=== PATIENT | male | born 1945 | race Caucasian/White ===

== ENCOUNTER 2023-12-02 16:53 | Inpatient (IN) | payer MEDICARE, OTHER, SELFPAY ==
[2023-12-02] VITALS (7 sets, daily range): BP systolic 117–137; BP diastolic 63–90; BMI 32.4
--- NOTE | 2023-12-02 14:55 | ED.GENMED ---
History of Present Illness
General
Chief Complaint: Breathing Problem
Source: patient and spouse
Time Seen by Provider: 12/02/23 14:42
Travel History
Have you had any contact with someone who has COVID-19?: No
Do you have any symptoms of coronavirus? Fever > 100 degrees, chills, cough, shortness of breath, sore throat, loss of taste or smell, muscle aches, or headache?: No
History of Present Illness
History of Present Illness:
78-year-old male presents to the emergency room complaining of shortness of breath. Patient was sent to the emergency room from [facility] where he is rehabilitating from bypass surgery. He also had a new pacemaker and pacemaker lead placed during
recent hospitalization. Patient states he was told he has 'viral pneumonia'. Unclear how this diagnosis was arrived at. Patient denies any fever. He feels quite short of breath even at rest. .Patient also experiencing lower extremity edema
Past History
Past History
ED Past Medical History: Arrthythmia (Afibrillation- has a pacemaker and on xarelto.), HTN, Hypercholesterolemia and Other (gout)
Social History
Tobacco: Former smoker
Alcohol: Occasional
Personal:
Living: with family
Phy Exam
Physical Exam
Physical Exam:
General: Awake, Alert, Oriented X3. Patient peers pale, chronically ill
Vitals: Hypoxic on room air, afebrile
Head: Atraumatic
Eyes: Pupils equal, EOMI, pale conjunctiva
Throat: Airway intact, no exudates
Neck: Trachea midline
Lungs: Crackles throughout bilaterally, decreased breath sounds left lower lung field
Heart: Regular rate, no murmurs
Abd: Soft, Nontender, No pulsatile mass
Neuro: Nonfocal
Skin: Warm, dry, no rash
Extremities: pulses equal b/l, 2+ edema
Scores
Heart Failure Risk
Heart Failure Risk Score: Not Applicable
Course
Orders/Labs/Results
Orders:
Orders
12/02/23 14:53
Electrocardiogram (*1) Stat
Reason for Study: Other
Other Reason for Exam: chest pain
Cardiac Monitoring- Treatment ONCE
EKG- Treatment ONCE
CR Chest - 2 Views Urgent
Comment:
Reason For Exam: sob, cough
12/02/23 14:57
COVID-19 Antigen Urgent
Source: Nasal Swab
Complete Blood Count/With Diff Urgent
Comprehensive Metabolic Panel Urgent
Free T3 Urgent
Comment: ADD ON
Free T4 Urgent
Comment: ADD ON
Magnesium Urgent
NT-proBNP Urgent
Influenza A+B Rapid Molecular Urgent
DAT Source: Nasal Swab
Specimen Description:
12/02/23 Dinner
Sodium, 4 Gram (ELSY)
At Your Request: Limited Participation
12/02/23 15:04
Add On- LAB Urgent
Tests Added?: Free T4 & T3
12/02/23 15:38
Cefepime HCl [Maxipime] 2,000 mg IV NOW STA
12/02/23 15:56
Blood Culture Q30M
DAT Source: Blood/Venous
Specimen Description:
Blood Culture Q30M
DAT Source: Blood/Venous
Specimen Description:
12/02/23 16:14
Admit/Transfer Patient As Directed
Co-Sign Provider:
Level of Care: Inpatient admission
Assign to:: Medical/Surgical
Physician / Group: Carol
Diagnosis: Pneumonia
Reason for Hospitalization: Shortness of breath and pneumonia
Expected length of stay greater than two midnights?: Yes
ELOS- Estimated Length of Stay in days: 3
I certify the patient meets the requirements for IP care: Yes
12/02/23 16:16
Code Status As Directed
Resuscitation Status: Full Code
12/02/23 16:34
Ot Eval And Treat Routine
Pt Eval And Treat Routine
Activity Level: Out of Bed-Early Mobility
12/02/23 19:56
0.9% Sodium Chloride 1000 ml [Nss] 1,000 ml IV 75 mls/hr
Acetaminophen [Tylenol] 650 mg PO Q6HPRN PRN
Dulcolax (bisacodyl) 2 gummy PO Q48H
Ipratropium/Albuterol Sulfate [Duoneb] 3 ml INH R Q4HPRN PRN
Rivaroxaban [Xarelto] 20 mg PO QPM
VANCOMYCIN Pharmacy to Dose [VANCOCIN Pharmacy to Dose] 1 each Pharmacy To Prepare [Call Pharmacy To Prepare] 0 ml IV PER PROTOCOL
12/02/23 19:56
Urinalysis Reflex To Culture Routine
Respiratory Culture/Gram Stain Routine
DAT Source: Sputum
Specimen Description:
Activity As Directed
Activity Level: Out of Bed-Early Mobility
Intake/ Output As Directed
Frequency: Per unit guidelines
Pneumatic Compression Sleeves As Directed
Type: Knee high
Precautions As Directed
Type of Precautions: Aspiration
Comment: Fall precaution
Vital Signs As Directed
Frequency: Per unit guidelines
Weight As Directed
Frequency: Once
Comment: on admission
Speech Therapy Eval & Treat Routine
DX Deep Vein Thrombosis Video Routine
12/02/23 20:00
Guaifenesin [Mucinex] 600 mg PO Q12
Polyethylene Glycol Powder [Miralax] 17 grams PO Q48H
12/02/23 22:00
testosterone 100 mg TRANSDERM HS
12/03/23 00:00
Cefepime HCl [Maxipime] 1,000 mg IV Q8H
12/03/23 06:00
Basic Metabolic Panel IN AM
Complete Blood Count/With Diff IN AM
12/03/23 07:00
Levothyroxine [Synthroid] 150 mcg PO DAILY@0700
12/03/23 08:00
Allopurinol [Zyloprim] 300 mg PO DAILY
Amiodarone [Pacerone] 200 mg PO DAILY
Aspirin Chewable [Low Strength Aspirin] 81 mg PO DAILY
Atorvastatin [Lipitor] 40 mg PO DAILY
Metoprolol Xl [Toprol Xl] 12.5 mg PO DAILY
Abnormal Lab Results
12/02/23
14:57
WBC 13.7 H 10^3/uL
(4.8-10.8)
RBC 3.24 L 10^6/uL
(4.70-6.10)
Hgb 9.9 L g/dL
(13.0-18.0)
Hct 29.9 L %
(39.0-52.0)
RDW 15.5 H %
(11.5-14.5)
Abs Immat Gran (auto) 0.1 H 10^3/uL
(0-0.05)
Absolute Neuts (auto) 12.1 H 10^3/uL
(1.4-6.5)
Absolute Lymphs (auto) 0.5 L 10^3/uL
(1.2-3.4)
Absolute Monos (auto) 0.8 H 10^3/uL
(0.1-0.6)
Neutrophils % 88.7 H %
(42.2-75.2)
Lymphocytes % 3.7 L %
(20.5-51.1)
Sodium 128 L mmol/L
(135-145)
Glucose 137 H mg/dl
(70-99)
Calcium 7.9 L mg/dl
(8.4-10.2)
Total Bilirubin 1.6 H mg/dl
(0.2-1.3)
Alkaline Phosphatase 142 H U/L
(38-126)
Total Protein 6.0 L g/dl
(6.3-8.2)
Albumin 3.0 L g/dl
(3.5-5.0)
Free T4 2.23 H ng/dl
(0.78-2.19)
Free T3 1.52 L pg/ml
(2.77-5.27)
12/02/23 14:57
12/02/23 14:57
Vital Signs
Initial and Last Documented VS:
Initial Vital Signs
Temp Pulse Resp BP Pulse Ox
97.5 F 79 27 127/89 96
12/02/23 14:24 12/02/23 14:24 12/02/23 14:24 12/02/23 14:24 12/02/23 14:24
Last Documented Vital Signs
Temp Pulse Resp BP Pulse Ox
97.5 F 88 24 134/77 96
12/02/23 14:24 12/02/23 19:45 12/02/23 19:45 12/02/23 19:00 12/02/23 19:45
MDM/Problems Addressed
Differential Diagnosis Includes:
Pneumonia, symptomatic anemia, heart failure, COVID, influenza
MDM/Problems Addressed:
Patient has been afebrile here. Chest x-ray does confirm the presence of multilobar pneumonia. Suspect he may be anemic but his hemoglobin is acceptable at 9.9. Given his recent hospitalization and his current residence at a assisted living/rehab
facility patient will be treated with cefepime. Patient is requiring supplemental oxygen due to hypoxia. He is currently on 4 L which is maintaining a acceptable oxygen saturation. Patient will be hospitalized for continued supportive care.
Chronic conditions affecting care: HTN and CAD
*Radiology
Radiology exam reviewed: preliminary read by ED provider (I personally viewed the patient's chest x-ray. He has significant right upper and lower lung infiltrates)
*Pulse Oximetry
Patient hypoxic: yes (87 percent on room air)
*EKG
Interpreted by ED Provider?: Yes
Interpretation: abnormal
Heart Rate: 78
Rate: normal
Rhythm: a-fib
[place]: normal axis
QRS Pattern: wide non-specific
Ischemia: non-specific ST changes
*Insulation Nozzleman Interpretation
Rate: normal
Interpretation: abnormal
Rhythm: a-fib
*Critical Care Note
Total Time (30-74mins, 75-104mins- exclusive of procedures): Not Applicable
Data Reviewed
Review of Other/Old Records Reveals: Discharge Summary (From November 20, 2023)
Patient Management
Social determinants of health affecting care: Living situation
ED Attending Note
-
Portions of this chart may have been created with voice recognition software.� Occasional wrong word or��sound alike� substitutions may have occurred due to the inherent limitations of voice recognition software.
Discharge Plan
Departure
Patient Disposition: Admit
Date of Disposition: 12/02/23
Time of Disposition: 15:43
Admit to: Med/Surg
Presentation/result/management discussed w/ accepting MD/DO: Hospitalist
Condition: Fair
Discharge Problem:
Pneumonia
Interventions
Interventions:
*Risk Screen - Suicide Last Done: 12/02/23 14:24
*General Assessment Last Done: 12/02/23 14:24
*Neglect/Abuse Screening Last Done: 12/02/23 14:24
ED- Fall Risk Assessment Last Done: 12/02/23 14:32
*ED COVID-19 Vaccine History Last Done: 12/02/23 14:24
*Nursing Disposition Last Done: 12/02/23 20:05
ED- Cardiac Assessment Last Done: 12/02/23 14:32
ED- Pulmonary Assessment Last Done: 12/02/23 14:32
Discharge Date and Time
Discharge Date/Time: 12/02/23 20:05
[2023-12-02 15:09] LABS: % Basophils 0.4 % (0-2); % Eosinophils 0.6 % (0-6); % Immature Granulocytes 0.5 % (0-0.5); % Lymphocytes 3.7 % (20.5-51.1); % Monocytes 6.1 % (1.7-9.3); % Neutrophils 88.7 % (42.2-75.2); Absolute Basophils 0.1 10^3/uL (0-0.2); Absolute Eosinophils 0.1 10^3/uL (0-0.7); Absolute Immature Granulocytes 0.1 10^3/uL (0-0.05); Absolute Lymphocytes 0.5 10^3/uL (1.2-3.4); Absolute Monocytes 0.8 10^3/uL (0.1-0.6); Absolute Neutrophils 12.1 10^3/uL (1.4-6.5); Hematocrit 29.9 % (39.0-52.0); Hemoglobin 9.9 g/dL (13.0-18.0); Mean Corp Hgb Conc. 33.1 g/dL (33.0-37.0); Mean Corpuscular Hgb 30.6 pg (27.0-31.0); Mean Corpuscular Volume 92.3 fL (80.0-94.0); Mean Platelet Volume 8.8 fL (7.4-10.4); Nucleated Red Blood Cells % 0 % (-); Platelet Count 347 10^3/uL (130-400); Red Blood Cell Count 3.24 10^6/uL (4.70-6.10); Red Cell Dist. Width 15.5 % (11.5-14.5); White Blood Cell Count 13.7 10^3/uL (4.8-10.8)
[2023-12-02 15:28] LABS: COVID-19 Antigen Negative (Negative)
[2023-12-02 15:31] LABS: NT-proBNP 5020 pg/ml
[2023-12-02 15:49] LABS: ALT (SGPT) 44 U/L (0-50); AST (SGOT) 57 U/L (17-59); Alkaline Phosphatase 142 U/L (38-126); Blood Urea Nitrogen 17 mg/dl (9-20); Calcium 7.9 mg/dl (8.4-10.2); Carbon Dioxide 23 mmol/L (22-30); Chloride 99 mmol/L (98-107); Estimated Creatinine Clearance 69 ml/min; Glucose 137 mg/dl (70-99); Magnesium 2.3 mg/dl (1.6-2.3); Potassium 4.5 mmol/L (3.5-5.1); Sodium 128 mmol/L (135-145); Total Bilirubin 1.6 mg/dl (0.2-1.3); eGFR > 60.00
[2023-12-02] MEDS: MAXIPIME 2000 MG IV (15:56)
[2023-12-02 16:05] LABS: Free T3 1.52 pg/ml (2.77-5.27); Free T4 2.23 ng/dl (0.78-2.19)
--- NOTE | 2023-12-02 16:36 | HPS.HSE ---
Addendum entered and electronically signed by Stiven Medina MD 12/02/23 17:07:
Patient had a TSH checked yesterday as an outpatient and was less than 0.02 while his T4 today is 2.23 was mildly elevated and T3 is 1.52. These changes I will decrease his levothyroxine from 1 75-1 50 and need to check the thyroid panel over the
next week or 2.
Original Note:
Family Physician
-
Family Physician: Matthew Iverson
Chief Complaint
-
Cough and congestion and shortness of breath
History of Present Illness
78-year-old male who was discharged from the hospital recently to [facility] rehab after had a NSTEMI and pacemaker placed in couple weeks ago, since has been the basically he has been feeling tired and lousy and lethargic, and he not feel much
progression from a physical point of view. Over the last 4 days he continued to be more weak and lousy and lethargic cough productive cough of greenish phlegm associated with subjective chills but no fever documented, admitted any kind of movement
or activity making him more short of breath. Denies any urinary or GI symptom, no nausea or vomiting.
Admits overall having a poor appetite and feeling fatigue and low energy.
Chest x-ray showed right-sided pneumonia. Also has leukocytosis.
In the ER given broad-spectrum antibiotic.
Denies any choking or coughing on his meal
Able to provide detailed information and at the bedside.
They do not have to go back to the rehab after discharge .
Medical History
Past Medical History
Past Medical History: Reports Other
Additional Past Medical History:
Past medical history and archive reviewed:
Coronary artery disease and NSTEMI
Sick sinus syndrome status post pacemaker placement couple weeks ago
Hypertension
Chronic lower extremity edema while he is on a low-dose amlodipine
Hypertension
Hypothyroidism
Hypothyroidism
Sick sinus syndrome status post pacemaker placement
TIA
Dilatory dysfunction
T3 tumor
Fatty liver
A-fib anticoagulated with Eliquis
Family history of colon cancer
Surgical history:
Cardiac cath
Pacemaker placement
T3 tumor removal
Cholecystectomy
Social history: Lives at home usually with a but since discharge less than 2 weeks ago from area is not primary but he does not go to the [facility], no smoking while drinks alcohol occasionally.
Family history: Positive for colon cancer, hypertension and stroke.
Past Surgical History: Reports Other
Social History
Drug: Other
Family History
Family History: Other
Allergies / Home Medications
Allergies reflects when Allergies were last updated in [facility].
Home Medications with original date entered in [facility]
Allergy/Medication List:
Allergies
Allergy/AdvReac Type Severity Reaction Status Date / Time
No Known Allergies Allergy Verified 02/07/17 07:19
Home Medications
amlodipine 2.5 mg tablet 2.5 mg PO DAILY Blood Pressure 02/07/17
levothyroxine 175 mcg tablet 175 mcg PO DAILY Thyroid 02/07/17
rivaroxaban 20 mg tablet (Xarelto) 20 mg PO QPM Blood Clot Prevention/Tx 02/07/17
allopurinol 300 mg tablet 300 mg PO DAILY Gout 11/09/23
metoprolol succinate 25 mg tablet,extended release 24 hr 12.5 mg PO DAILY Blood Pressure 11/09/23
testosterone 50 mg/5 gram (1 %) transdermal gel 100 mg transdermal DAILY apply to lower belly/B/L shoulders 11/09/23
aspirin 81 mg chewable tablet (Children's Aspirin) 81 mg PO DAILY Blood clot prevention/tx #0 tabs 11/21/23
atorvastatin 40 mg tablet 40 mg PO DAILY High cholesterol #90 tabs 11/21/23
acetaminophen 325 mg tablet 650 mg PO Q4HPRN PRN fever>100 12/02/23
acetaminophen 325 mg tablet (Tylenol) 650 mg PO Q6H PRN mild pain 12/02/23
amiodarone 200 mg tablet 200 mg PO BID Arrhythmia 12/02/23
bisacodyl 10 mg rectal suppository (Dulcolax (bisacodyl)) 10 mg OK DAILY PRN constipation 12/02/23
furosemide 40 mg tablet 40 mg PO DAILY 12/02/23
ipratropium 0.5 mg-albuterol 3 mg (2.5 mg base)/3 mL nebulization soln 3 ml inhalation R Q8 12/02/23
ipratropium 0.5 mg-albuterol 3 mg (2.5 mg base)/3 mL nebulization soln 3 ml inhalation R Q8HPRN PRN wheezing 12/02/23
magnesium hydroxide 1,200 mg chewable tablet 1,200 mg PO Q48H 12/02/23
melatonin 5 mg tablet 5 mg PO HS 12/02/23
polyethylene glycol 3350 17 gram oral powder packet (Miralax) 17 g PO DAILY 12/02/23
sennosides 8.6 mg-docusate sodium 50 mg tablet (Senna Plus) 1 tab-cap PO DAILY 12/02/23
sodium phosphates 19 gram-7 gram/118 mL enema (Fleet Enema) 118 ml OK DAILYPRN PRN constipation 12/02/23
Review of Systems
-
A 12 point ROS was completed and negative except as noted: Yes
Physical Exam
Vital Signs
Vital Signs
Temp Pulse Resp BP Pulse Ox
97.5 F 78 27 117/90 97
12/02/23 14:24 12/02/23 16:00 12/02/23 16:00 12/02/23 16:00 12/02/23 16:00
physical exam:
General: Overweight, lethargic but , alert and oriented x3, not in distress and holds appropriate conversation.
HEENT: No active discharge, ecchymosis or bruising, dry lips, tongue and mucous membrane.
Eyes: No discharge or red conjunctiva, no nystagmus, pupils are reactive and equal
Neck:Supple, no JVD no bruit no goiter.
Respiratory: Normal AP contour and diameter, normal chest wall movement, normal respiratory effort, no respiratory distress,
Lungs: Good air entry bilaterally, no wheezing or rhonchi, scattered rales but crackles
Heart: S1, S2 regular, normal rate, no added sound. Mild lower extremity edema, scar in the left upper chest
Gastrointestinal: Positive bowel sounds, soft, nontender, no guarding or rigidity or organomegaly
Musculoskeletal: , no chest wall abnormality or tenderness. All joints and extremities have good range of motion, no muscle tenderness or any joint swelling or tenderness.
Extremities: No pitting edema, good peripheral pulses, good range of motion
Skin: Warm and dry, no ulceration, normal color.
Neurological: alert and oriented x3, cranial nerve II-XII grossly intact, speech clear and comprehensive, good muscle tone, moves extremities freely
Psychiatric: Normal mood, normal thought and judgment, normal affect,
Physical Exam
General: Other
Laboratory Results
-
12/02/23 14:57
12/02/23 14:57
Laboratory Results
Total Bilirubin 1.6 mg/dl (0.2-1.3) H 12/02/23 14:57
AST 57 U/L (17-59) 12/02/23 14:57
ALT 44 U/L (0-50) 12/02/23 14:57
Alkaline Phosphatase 142 U/L (38-126) H 12/02/23 14:57
chest x-ray:
Significant change in the appearance of the lungs, with new right upper and lower lung zone pneumonia and parapneumonic effusion.
Minimal left base atelectasis or scarring.
Data Reviewed
-
Diagnostic Radiology: Image Personally Visualized and interpreted, Discussed with Patient and Discussed with Family
Lab Data: Labs Reviewed by me, Discussed with Patient and Discussed with Family
Old Records: Reviewed
Impression/Plan
-
IMPRESSION:
78-year-old male who was [facility]STEMI and pacemaker placed, presented back to the hospital with a workup showing a right-sided pneumonia.
Healthcare acquired pneumonia with recent hospitalization and been in a halfway home
Chronic hyponatremia, usually runs below 130 today is 128
Hypocalcemia, well corrected calcium is dick be more than 8.5 albumin is 3
Moderate protein caloric malnutrition
History of the hypopituitarism and hypothyroidism while T4 is little high and T3 is low.
Coronary artery disease
Sick sinus syndrome status post pacemaker
A-fib
Chronic lower extremity edema, mild while he is on amlodipine
Hypertension.
Dilatory dysfunction
PLAN:
Managed with broad-spectrum antibiotic, vancomycin and cefepime
Cough medication
Tylenol as needed
Sputum culture
Monitor vital sign
Recheck lab
I will hold amlodipine as he takes 2.5 mg while the pulmonary Lasix for lower extremity edema.
Hold Lasix for now looks dry
Low-dose IV fluid with monitor for fluid status
Continue amiodarone, Lopressor and Xarelto
Continue levothyroxine while T4 and T3 checked, T4 is mildly elevated and T3 is mildly low possible sick euthyroid. Will check TSH to complete the workup and may adjust accordingly.
PT OT and assess functional status
Clearly they voiced that he does not want to go back to the prior 1 after discharge.
All discussed with the patient and the
CODE STATUS full code
DVT prophylaxis is Xarelto
--- NOTE | 2023-12-02 21:06 | PHA.VAN.IN ---
Assessment
- Assessment
Renal Function: Appears similar to baseline
Maximum Temperature: 97.5
Minimum Temperature: 97.5
Concomitant Antimicrobials: Cefepime
AUC Dosing Plan
- Dosing Variables
Dosing Weight (kg): 105.2
Dosing CrCl (ml/min): 69
Vd coefficient (L/kg): 0.6
- Empiric Dosing
Initial / Loading Dose: 2000mg
Maintenance Regimen: 1000mg Q12H
Estimated AUC (mcg*h/mL): 530
Estimated Peak (mcg*h/mL): 30.3
Estimated Trough (mcg/ml): 15.4
Estimated Half Life (H): 11.2
- Monitoring
No levels ordered at this time: Consider levels in next few days
MRSA Screen: Ordered per protocol
Pharmacokinetics Vancomycin I
- -
Patient Age: 78
Patient Sex: Male
Vancomycin Day #: 1
Indication: Pulmonary/Respiratory
Requesting Provider: DR. Stiven Crowder
Pertinent Antimicrobial Allergies:
NKDA
Height / Weight:
Height 5 ft 11 in
Actual Weight 105.2 kg
Pertinent Past Medical History: CAD
- Vital Signs / Lab Results
Temp Pulse Resp BP Pulse Ox
97.5 F 88 24 134/77 96
12/02/23 14:24 12/02/23 19:45 12/02/23 19:45 12/02/23 19:00 12/02/23 19:45
Lab Results - Hematology
12/02/23
14:57
WBC 13.7 H
Lab Results - Chemistry
12/02/23
14:57
BUN 17
Creatinine 1.1
Estimated Creat Clear 69
Albumin 3.0 L
Microbiology Results
12/02/23 14:57 Influenza Types A & B (CLEO) - Final
Nasal Swab Negative for Influenza A & B, NAAT
Negative results must be combined with clinical observations
and patient history.
Nucleic Acid Amplification test (NAAT)performed on the
[employer] platform.
[2023-12-02] MEDS: NSS 1000 IV (22:46)
[2023-12-02] MEDS: VANCOCIN 540 MG IV (22:47)
[2023-12-02] MEDS: MIRALAX 17 GRAMS PO (22:47)
[2023-12-02] MEDS: XARELTO 20 MG PO (22:47)
[2023-12-02] MEDS: MUCINEX 600 MG PO (22:47)
[2023-12-02 23:15] LABS: Urine Albumin Trace (Neg - Trace); Urine Bilirubin Negative (Negative); Urine Character Clear (Clear); Urine Color Yellow; Urine Glucose Negative (Negative); Urine Ketone Negative (Negative); Urine Leukocyte Negative (Negative); Urine Nitrite Negative (Negative); Urine Occult Blood Negative (Negative); Urine Urobilinogen Negative (Neg - 1+)
--- NOTE | 2023-12-03 01:23 | VATNOTE ---
VAT paged to move patient's PIV as pump continued to alarm. Patient found with 18 gauge R median cubital PIV placed via US by ED with infiltrate of vanco. Patient reports pain, area cool and firm to touch. PIV removed and restarted in left upper
arm. Right arm elevated and cool compress applied by primary RN. Will continue to follow.
[2023-12-03] MEDS: DUONEB 3 ML INH ×3 (01:28→17:23)
[2023-12-03] MEDS: MAXIPIME 1000 MG IV ×2 (02:50→08:15)
[2023-12-03] MEDS: STERILE WATER FOR INJECTION 10 ML IV ×2 (02:50→08:16)
[2023-12-03 03:30] VITALS: BP 138/80
[2023-12-03 05:24] VITALS: BMI 31.9
[2023-12-03] MEDS: SYNTHROID 150 MCG PO (05:38)
[2023-12-03 07:20] VITALS: BP 133/80
--- NOTE | 2023-12-03 07:54 | VATNOTE ---
Right arm vanco infiltrate in antecubital baslic region remains swollen , patient states he has a 'little ' pain on palpation, warm compress applied, will continue to monitor.
[2023-12-03] MEDS: LIPITOR 40 MG PO (08:15)
[2023-12-03] MEDS: ZYLOPRIM 300 MG PO (08:15)
[2023-12-03] MEDS: MUCINEX 600 MG PO ×2 (08:15→21:54)
[2023-12-03] MEDS: LOW STRENGTH ASPIRIN 81 MG PO (08:15)
[2023-12-03] MEDS: TOPROL XL 12.5 MG PO (08:15)
[2023-12-03] MEDS: PACERONE 200 MG PO ×2 (08:15→21:54)
[2023-12-03 09:35] LABS: % Basophils 0.5 % (0-2); % Eosinophils 0.7 % (0-6); % Immature Granulocytes 0.7 % (0-0.5); % Lymphocytes 3.9 % (20.5-51.1); % Monocytes 5.3 % (1.7-9.3); % Neutrophils 88.9 % (42.2-75.2); Absolute Basophils 0.1 10^3/uL (0-0.2); Absolute Eosinophils 0.1 10^3/uL (0-0.7); Absolute Immature Granulocytes 0.1 10^3/uL (0-0.05); Absolute Lymphocytes 0.5 10^3/uL (1.2-3.4); Absolute Monocytes 0.7 10^3/uL (0.1-0.6); Absolute Neutrophils 11.6 10^3/uL (1.4-6.5); Hematocrit 28.7 % (39.0-52.0); Hemoglobin 9.3 g/dL (13.0-18.0); Mean Corp Hgb Conc. 32.4 g/dL (33.0-37.0); Mean Corpuscular Hgb 29.4 pg (27.0-31.0); Mean Corpuscular Volume 90.8 fL (80.0-94.0); Mean Platelet Volume 8.8 fL (7.4-10.4); Nucleated Red Blood Cells % 0 % (-); Platelet Count 331 10^3/uL (130-400); Red Blood Cell Count 3.16 10^6/uL (4.70-6.10); Red Cell Dist. Width 15.5 % (11.5-14.5)
[2023-12-03 10:24] LABS: Blood Urea Nitrogen 17 mg/dl (9-20); Calcium 7.7 mg/dl (8.4-10.2); Carbon Dioxide 22 mmol/L (22-30); Chloride 101 mmol/L (98-107); Estimated Creatinine Clearance 69 ml/min; Glucose 125 mg/dl (70-99); Potassium 4.2 mmol/L (3.5-5.1); Sodium 129 mmol/L (135-145); eGFR > 60.00
--- NOTE | 2023-12-03 10:25 | PTOTSP ---
SPEECH THERAPY SWALLOW EVALUATION:
Clinical signs of pharygneal dysphagia, while oral swallow phase appeared to be WFL; likely [id number]-chronic related to recent CABG x4 with intubation/extubation, and self-reported change in vocal quality since surgery; suspect possible damage
to Recurrent Laryngeal Nerve could be contributing to swallow dysfunction. Patient at high risk for aspiration and related complications given tenuous respiratory status. Recommend instrumental assessment of swallow to further assess swallow
physiology prior to initiating oral diet. Recommend Videofluoroscopic Swallowing Study; recommend patient to be NPO except for small, single sips of water and ice chips via ARHP until VSE; temporary alternate means for all other nutrition.
Medications whole with liquid. Aspiration precautions including: upright positioning, small single sips, aggressive oral care QID. Recommend Speech therapy to follow, provide further recommendations following results of VSE, and provide continued
education regarding aspiration risks and precautions.
RECOMMEND:
1) Videofluoroscopic Swallowing Study
2) NPO except for small, single sips of water and ice chips via ARHP until VSE
3) temporary alternate means for all other nutrition
4) Medications whole with liquid
5) Aspiration precautions including: upright positioning, small single sips, aggressive oral care QID
6) Speech therapy to follow, provide further recommendations following results of VSE, and provide continued education regarding aspiration risks and precautions
[2023-12-03 10:29] LABS: Procalcitonin 0.21 ng/ml (0.0-0.25)
[2023-12-03] MEDS: LASIX 40 MG PO (10:34)
[2023-12-03] MEDS: VANCOCIN 200 IV (10:34)
[2023-12-03 11:16] VITALS: BP 146/82
--- NOTE | 2023-12-03 12:08 | W.PN.HOSP.TC ---
Today's Communication/Plan
-
Monitor vital signs and see plan
Lasix
DuoNebs
Wean oxygen as tolerated
PT/OT
VSE tomorrow
N.p.o. for now, okay for meds
Assessment / Plan
Assessment / Plan
General: Overweight, lethargic but , alert and oriented x3
HEENT: Anicteric, pink conjunctiva
Respiratory: CTA, mild wheezing
Heart: S1, S2 regular, normal rate, no added sound.� Mild lower extremity edema, scar in the left upper chest
Gastrointestinal: Positive bowel sounds, soft, nontender, no guarding or rigidity or organomegaly
Musculoskeletal: , no chest wall abnormality or tenderness.� All joints and extremities have good range of motion, no muscle tenderness or any joint swelling or tenderness.
Neurological:� alert and oriented x3, cranial nerve II-XII grossly intact, speech clear and comprehensive, good muscle tone, moves extremities freely
Psychiatric: Normal mood, normal thought and judgment, normal affect
Healthcare acquired pneumonia with recent hospitalization and [facility]
Acute hypoxic respiratory insufficiency
Acute on Chronic hyponatremia
Moderate protein caloric malnutrition
History of the hypopituitarism and hypothyroidism while T4 is little high and T3 is low.
Coronary artery disease s/p recent CABG
Sick sinus syndrome status post pacemaker
A-fib/A flutter, paroxysmal
Chronic lower extremity edema, mild while he is on amlodipine
Hypertension.
Dilatory dysfunction
CHFpEF
PLAN:
Managed with broad-spectrum antibiotic, vancomycin and cefepime for now; probnp doesnt appear significant, i dont see any fever here. If afebrile and leukocytosis improved then consider discontinuing antibiotics. Seen by speech today manage
scheduled for VSE tomorrow. N.p.o. for now.
Cough medication
Tylenol as needed
Sputum� culture
Monitor vital sign
xray with possible pneumonia and parapneumonic effusion
COVID, flu, Legionella, strep neg
hold amlodipine
restart lasix; IV lasix given; probnp elevated. per echo on last admission, stage 2 diastolic dysfunction. 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
Continue amiodarone, Lopressor and Xarelto
Levothyroxine decreased to 150. Patient to get repeat TSH with free T4 in 4 to 6 weeks outpatient
PT OT and assess functional status
CODE STATUS full code
DVT prophylaxis is Xarelto
I spent a total of 54 minutes with the patient or on the floor. More than 50% of this time involved counseling and coordination of care.
Anticipated Discharge: > 48 hours
Subjective/Interval History
-
Date of Service: December 03, 2023
has some sob
Objective Data
-
Labs:
Laboratory Results
12/03/23
09:22
WBC 13.0 H
Hgb 9.3 L
Hct 28.7 L
Plt Count 331
Sodium 129 L
Potassium 4.2
Chloride 101
Carbon Dioxide 22
BUN 17
Creatinine 1.1
Glucose 125 H
Calcium 7.7 L
Vital Signs:
Vital Signs
Temp Pulse Resp BP Pulse Ox
97.7 F 81 18 146/82 95
12/03/23 11:16 12/03/23 11:16 12/03/23 11:16 12/03/23 11:16 12/03/23 11:16
I&O
12/02/23 12/03/23 12/04/23
06:59 06:59 06:59
Intake Total 720 / 720
Output Total 325 / 325
Balance 395 / 395
[2023-12-03] MEDS: LASIX 40 MG IV (12:27)
--- NOTE | 2023-12-03 12:50 | VATNOTE ---
Left midline bleeding, redressed with quick clot and berenice wrap to control bleeding, will continue to monitor.
--- NOTE | 2023-12-03 12:59 | W.PN.CD ---
Today's Communication / Plan
-
Impression / Plan
-
Impression: 78M with recent NSTEMI -> CABG (11/16) & right sided PPM. He initially felt better, but developed dyspnea and fatigue over last 5-7 days.
PMH: paroxysmal atrial flutter, SSS / AV block s/p PPM, HTN/HLD
Plan
Dyspnea
- unsure if there is HF. Weight stable and the 1+ edema is chronic. CXR is only right sided. pBNP is elevated
- continue Lasix today and reevaluate AM since he reports good diuresis
- treat PNA
CAD s/p recent CABG
Aflutter, paroxysmal
-Back in AF now.
-Rate control with amiodarone and metoprolol.
-CHADS2-Vasc = 4 (HTN, Age x2, Vascular Disease). Xarelto
Sick sinus syndrome / AV block
-left sided PPM is changed to back up as VVI 40 bpm. Occluded venous system on the left shoulder with attempted venoplasty with only limited success.
-New right sided conduction system pacemaker implanted on 11/20/23.
HTN: Stable/controlled on current medication regimen.
Mixed hyperlipidemia - statin
Prior pituitary surgery
Legally blind
Subjective: Dictated
DATA:
Intraoperative KEVIN, 11/16/2023:
Overall LVEF is approximately 60% with no RWMA.
Moderate mitral regurgitation.
Mild tricuspid regurgitation.
Cardiac Catheterization, 11/10/2023:
Left Main: Normal
LAD: Tandem 50% ostial and 40% proximal LAD stenoses.� There is 30% mid LAD stenosis.� The major diagonal branch has 60% proximal to mid stenosis.
Circumflex: 90% ostial circumflex stenosis.� There is 40% mid circumflex stenosis.� OM1 is very large with 70% mid stenosis.� OM 2 is a small to medium sized bifurcating vessel with 60% ostial stenosis.
RCA: 50% mid RCA stenosis.� The RCA has otherwise mild diffuse disease.� The acute marginal branch supplies the distal PDA territory.� There is no clearly visible PDA and the posterolateral branches are small.
.
Physical Exam
Vital Signs/Labs
Vital Signs
Temp Pulse Resp BP Pulse Ox
36.5 C 81 18 146/82 95
12/03/23 11:16 12/03/23 11:16 12/03/23 11:16 12/03/23 11:16 12/03/23 11:16
12/02/23 12/03/23 12/04/23
06:59 06:59 06:59
Actual Weight 228 lb 5 oz
12/03/23 09:22
12/03/23 09:22
Magnesium 2.3 mg/dl (1.6-2.3) 12/02/23 14:57
Free T4 Cancelled 12/02/23 14:58
12/02/23
14:57
Ljg-A-Kyzvtbxvrfv Pept 5020
Data Reviewed
-
Date of Service: December 03, 2023
[2023-12-03 13:21] LABS: NT-proBNP 4010 pg/ml
[2023-12-03] MEDS: NSS IV (14:36)
[2023-12-03 15:15] VITALS: BP 134/67
[2023-12-03] MEDS: ZOSYN 50 IV ×2 (16:50→21:54)
[2023-12-03] MEDS: XARELTO 20 MG PO (17:43)
--- NOTE | 2023-12-03 18:17 | PTCARENOTE ---
IVT had redressed midline earlier today, applied quick clot and LYNETTE wrap due to bleeding at site. Midline noted to be bleeding from site again significantly more than before. IVT instructed RN to remove midline. Pressure was applied for 15 minutes
due to continued bleeding. ABD pad and LYNETTE wrap applied when bleeding stopped.
[2023-12-03 19:15] VITALS: BP 126/64
--- NOTE | 2023-12-03 19:37 | VATNOTE ---
Late entry: Rec'd. call from embossing unit operator that pt.'s IV site was bleeding alot and could they pull it. The pt.'s access was miss identified and pt. had a Midline. Therefore primary RN removed the Midline. Andrzej wrap was appplied. Pt. has peripheral
access.
[2023-12-03 23:37] VITALS: BP 113/62
[2023-12-03] MEDS: TYLENOL 650 MG PO (23:45)
[2023-12-04] VITALS (7 sets, daily range): BP systolic 103–137; BP diastolic 63–75; PULSE 85; O2SAT 93; BMI 31.9
[2023-12-04] MEDS: BENADRYL 6.25 MG IV (02:11)
[2023-12-04] MEDS: DUONEB 3 ML INH ×3 (03:23→14:54)
[2023-12-04] MEDS: MORPHINE SULFATE 1 MG IV (03:53)
[2023-12-04] MEDS: ZOSYN 50 IV ×4 (03:54→21:10)
[2023-12-04] MEDS: SYNTHROID 150 MCG PO (05:23)
--- NOTE | 2023-12-04 08:34 | W.PN.CD ---
Today's Communication / Plan
-
- cont w diuresis
recheck echo
rate control for afib
Eval and Rx extensive R sided Pna per Hospitalist
Impression / Plan
-
Impression: 78M with recent NSTEMI -> CABG (11/16) & right sided PPM. He initially felt better, but developed dyspnea and fatigue over last 5-7 days.
PMH: paroxysmal atrial flutter, SSS / AV block s/p PPM, HTN/HLD
Plan
Dyspnea
-major cause is R Pna (aspiration vs SNF aquired)
-also looks volume overloaded, although weight is now back to baseline
- continue Lasix today and reevaluate daily since he reports good diuresis
- treat PNA (he is on piperacillin)
CAD s/p recent CABG
recheck echo today
recurrent afib - see below
Aflutter, paroxysmal
-Back in AF now.
-Rate control with amiodarone and metoprolol.
-CHADS2-Vasc = 4 (HTN, Age x2, Vascular Disease). Xarelto
-no short term plan to DCCV; but eventually will -plan for DCCV
Sick sinus syndrome / AV block
-R sided PPM set to VVI 40 bpm. Occluded venous system on the left shoulder with attempted venoplasty with only limited success.
-New right sided conduction system pacemaker implanted on 11/20/23.
HTN: Stable/controlled on current medication regimen.
Mixed hyperlipidemia - statin
Prior pituitary surgery
Legally blind
Subjective: Dictated
DATA:
Intraoperative KEVIN, 11/16/2023:
Overall LVEF is approximately 60% with no RWMA.
Moderate mitral regurgitation.
Mild tricuspid regurgitation.
Cardiac Catheterization, 11/10/2023:
Left Main: Normal
LAD: Tandem 50% ostial and 40% proximal LAD stenoses.� There is 30% mid LAD stenosis.� The major diagonal branch has 60% proximal to mid stenosis.
Circumflex: 90% ostial circumflex stenosis.� There is 40% mid circumflex stenosis.� OM1 is very large with 70% mid stenosis.� OM 2 is a small to medium sized bifurcating vessel with 60% ostial stenosis.
RCA: 50% mid RCA stenosis.� The RCA has otherwise mild diffuse disease.� The acute marginal branch supplies the distal PDA territory.� There is no clearly visible PDA and the posterolateral branches are small.
.
Physical Exam
Vital Signs/Labs
Vital Signs
Temp Pulse Resp BP Pulse Ox
97.4 F 77 18 137/73 99
12/04/23 03:01 12/04/23 08:01 12/04/23 08:01 12/04/23 03:01 12/04/23 08:01
12/03/23 12/04/23 12/05/23
06:59 06:59 06:59
Actual Weight 228 lb 5 oz 228 lb 7 oz
Magnesium 2.3 mg/dl (1.6-2.3) 12/02/23 14:57
Free T4 Cancelled 12/02/23 14:58
12/02/23 12/03/23
14:57 09:22
Xsr-J-Zwciotrwbeb Pept 5020 4010
Physical Exam
Cardiovascular: Systolic murmur absent, Rhythm/rate is irregular and Pedal edema present
Respiratory: Labored respirations, Wheeze Present and Crackles Present
GI: Soft
Neuro/Psych: Alert
Data Reviewed
-
Date of Service: December 04, 2023
EKG: Tracing Personally Visualized and interpreted
X-Ray/CT/US/MRI/NUC/PET: Image Personally Visualized and interpreted
Labs: Labs Reviewed by me
[2023-12-04] MEDS: LIPITOR 40 MG PO (08:49)
[2023-12-04] MEDS: MUCINEX 600 MG PO ×2 (08:49→20:02)
[2023-12-04] MEDS: TOPROL XL 12.5 MG PO (08:50)
[2023-12-04] MEDS: PACERONE 200 MG PO ×2 (08:50→20:02)
[2023-12-04] MEDS: ZYLOPRIM 300 MG PO (08:50)
[2023-12-04] MEDS: LASIX 40 MG PO (08:50)
[2023-12-04] MEDS: LOW STRENGTH ASPIRIN 81 MG PO (08:50)
--- NOTE | 2023-12-04 10:33 | W.PN.HOSP.TC ---
Today's Communication/Plan
-
see plan
Assessment / Plan
Assessment / Plan
Healthcare acquired pneumonia with recent hospitalization and been in a halfway home
Acute hypoxic respiratory insufficiency
Acute on Chronic hyponatremia
Moderate protein caloric malnutrition
History of the hypopituitarism and hypothyroidism while T4 is little high and T3 is low.
Coronary artery disease s/p recent CABG
Sick sinus syndrome status post pacemaker
A-fib/A flutter, paroxysmal
Chronic lower extremity edema, mild while he is on amlodipine
Hypertension.
Dilatory dysfunction
CHFpEF
PLAN:
Managed with broad-spectrum antibiotic,
Vanc/cefepime -> transitioned to zosyn
probnp doesnt appear significant, i dont see any fever here. Seen by speech today manage scheduled for VSE tomorrow. N.p.o. for now.
Cough medication
Tylenol as needed
Sputum� culture
Monitor vital sign
xray with possible pneumonia and parapneumonic effusion - repeat XR 12/05 to assess if effusions have improved after diuresis.
COVID, flu, Legionella, strep neg
hold amlodipine
completed IV lasix, transition to oral lasix. Cards following. probnp elevated. per echo on last admission, stage 2 diastolic dysfunction. 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
Continue amiodarone, Lopressor and Xarelto
Levothyroxine decreased to 150. Patient to get repeat TSH with free T4 in 4 to 6 weeks outpatient
PT OT and assess functional status
CODE STATUS full code
DVT prophylaxis is Xarelto
Anticipated Discharge: 24 - 48 hours
Subjective/Interval History
-
Date of Service: December 04, 2023
pt continues to improve on zosyn, lasix
denies fever or chills.
Objective Data
-
Labs:
Laboratory Results
12/04/23
06:00
WBC Pending
Hgb Pending
Hct Pending
Plt Count Pending
Sodium Pending
Potassium Pending
Chloride Pending
Carbon Dioxide Pending
BUN Pending
Creatinine Pending
Glucose Pending
Calcium Pending
Vital Signs:
Vital Signs
Temp Pulse Resp BP Pulse Ox
97.7 F 76 18 123/75 99
12/04/23 07:25 12/04/23 08:50 12/04/23 08:01 12/04/23 08:50 12/04/23 08:01
I&O
12/03/23 12/04/23 12/05/23
06:59 06:59 06:59
Intake Total 720 / 720 1400 / 1880 480 / 480
Output Total 325 / 325 1350 / 1950 600 / 600
Balance 395 / 395 50 / -70 -120 / -120
Review of Systems
-
History Source: Patient
All other systems: Reviewed and negative
Physical Exam
-
General: Well Developed and No Apparent Distress
HEENT: Normocephalic, Atraumatic, Moist Mucous Membranes and Oxygen
Respiratory: Decreased Breath Sounds
Cardiac: Regular Rhythm and S1/S2; Negative Murmur, Rub or Gallop
GI: Soft, Nontender, Nondistended and Normal Bowel Sounds; Negative Organomegaly
Rectal: Deferred by Provider
Musculoskeletal: No Clubbing, No Cyanosis and No Edema
Skin: Negative Rash
Neuro: Nonfocal/Grossly Intact
Data Reviewed
-
Labs: Labs Reviewed by me
[2023-12-04 11:04] LABS: % Basophils 0.6 % (0-2); % Eosinophils 1.5 % (0-6); % Immature Granulocytes 0.7 % (0-0.5); % Lymphocytes 4.7 % (20.5-51.1); % Monocytes 6.2 % (1.7-9.3); % Neutrophils 86.3 % (42.2-75.2); Absolute Basophils 0.1 10^3/uL (0-0.2); Absolute Eosinophils 0.2 10^3/uL (0-0.7); Absolute Immature Granulocytes 0.1 10^3/uL (0-0.05); Absolute Lymphocytes 0.5 10^3/uL (1.2-3.4); Absolute Monocytes 0.7 10^3/uL (0.1-0.6); Absolute Neutrophils 9.5 10^3/uL (1.4-6.5); Hematocrit 27.9 % (39.0-52.0); Hemoglobin 9.3 g/dL (13.0-18.0); Mean Corp Hgb Conc. 33.3 g/dL (33.0-37.0); Mean Corpuscular Hgb 29.6 pg (27.0-31.0); Mean Corpuscular Volume 88.9 fL (80.0-94.0); Mean Platelet Volume 8.9 fL (7.4-10.4); Nucleated Red Blood Cells % 0 % (-); Platelet Count 307 10^3/uL (130-400); Red Blood Cell Count 3.14 10^6/uL (4.70-6.10); Red Cell Dist. Width 15.6 % (11.5-14.5)
[2023-12-04 11:16] LABS: Blood Urea Nitrogen 20 mg/dl (9-20); Calcium 7.7 mg/dl (8.4-10.2); Carbon Dioxide 24 mmol/L (22-30); Chloride 100 mmol/L (98-107); Estimated Creatinine Clearance 69 ml/min; Glucose 118 mg/dl (70-99); Potassium 3.8 mmol/L (3.5-5.1); Sodium 130 mmol/L (135-145); eGFR > 60.00
--- NOTE | 2023-12-04 14:33 | PTOTSP ---
Video Swallow Examination
Patient presents with mild oral and mild-moderate pharyngeal dysphagia. There was aspiration with thin liquids via tsp with a weak ineffective cough response.
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
Recommend:
1. IDDSI Level 6 (Soft and Bite Sized), IDDSI Level 2 (Mildly Thick Liquids)
2. Medications - crushed in puree if medically cleared to do so
3. Strategies: alternate solids and liquids to assist with pharyngeal clearance, remain upright for 30 minutes after PO intake as a reflux precautions
4. Aspiration Risk Hydration Protocol - ice chips after oral care
5. Oral care 3-5x daily
6. ENT consult
7. Continued dysphagia tx at the acute care level for education in compensations and rehabilitation.
--- NOTE | 2023-12-04 16:53 | CM ---
LM with Honey.Unable to do IA.
[2023-12-04] MEDS: XARELTO 20 MG PO (17:15)
[2023-12-04] MEDS: MIRALAX 17 GRAMS PO (20:02)
[2023-12-05] VITALS (8 sets, daily range): BP systolic 80–131; BP diastolic 54–71; PULSE 71–92; O2SAT 98
[2023-12-05] MEDS: BENADRYL 6.25 MG IV (00:02)
[2023-12-05] MEDS: ZOSYN 50 IV ×4 (04:57→21:35)
[2023-12-05] MEDS: SYNTHROID 150 MCG PO (04:57)
[2023-12-05 07:15] LABS: % Basophils 0.6 % (0-2); % Immature Granulocytes 0.4 % (0-0.5); % Lymphocytes 5.8 % (20.5-51.1); % Neutrophils 84.2 % (42.2-75.2); Absolute Basophils 0.1 10^3/uL (0-0.2); Absolute Eosinophils 0.3 10^3/uL (0-0.7); Absolute Lymphocytes 0.6 10^3/uL (1.2-3.4); Absolute Monocytes 0.6 10^3/uL (0.1-0.6); Absolute Neutrophils 8.5 10^3/uL (1.4-6.5); Hematocrit 27.8 % (39.0-52.0); Mean Corp Hgb Conc. 32.4 g/dL (33.0-37.0); Mean Corpuscular Hgb 29.6 pg (27.0-31.0); Mean Corpuscular Volume 91.4 fL (80.0-94.0); Mean Platelet Volume 8.9 fL (7.4-10.4); Nucleated Red Blood Cells % 0 % (-); Platelet Count 299 10^3/uL (130-400); Red Blood Cell Count 3.04 10^6/uL (4.70-6.10); Red Cell Dist. Width 15.6 % (11.5-14.5); White Blood Cell Count 10.1 10^3/uL (4.8-10.8)
--- NOTE | 2023-12-05 07:45 | VATNOTE ---
Repoerted right arm vanco infiltrate resolved.
[2023-12-05 07:46] LABS: ALT (SGPT) 70 U/L (0-50); AST (SGOT) 132 U/L (17-59); Albumin 2.5 g/dl (3.5-5.0); Alkaline Phosphatase 189 U/L (38-126); Blood Urea Nitrogen 22 mg/dl (9-20); Calcium 7.7 mg/dl (8.4-10.2); Carbon Dioxide 28 mmol/L (22-30); Chloride 101 mmol/L (98-107); Estimated Creatinine Clearance 63 ml/min; Glucose 120 mg/dl (70-99); Potassium 3.7 mmol/L (3.5-5.1); Sodium 133 mmol/L (135-145); Total Bilirubin 1.5 mg/dl (0.2-1.3); Total Protein 5.4 g/dl (6.3-8.2); eGFR > 60.00
[2023-12-05] MEDS: TOPROL XL 12.5 MG PO (08:29)
[2023-12-05] MEDS: LOW STRENGTH ASPIRIN 81 MG PO (08:29)
[2023-12-05] MEDS: MUCINEX 600 MG PO ×2 (08:29→20:16)
[2023-12-05] MEDS: PACERONE 200 MG PO ×2 (08:30→20:16)
[2023-12-05] MEDS: ZYLOPRIM 300 MG PO (08:30)
[2023-12-05] MEDS: LIPITOR 40 MG PO (08:35)
[2023-12-05] MEDS: LASIX PO (08:35)
--- NOTE | 2023-12-05 09:06 | W.PN.CD ---
Today's Communication / Plan
-
lightheadeness and sob standing 12/05/23 . Sounded orhtostatic but nursing reported stable . Hold diuretic and monitor orthostatics
continue txof PNA
Impression / Plan
-
Impression: 78M with recent NSTEMI -> CABG (11/16) & right sided PPM. He initially felt better, but developed dyspnea and fatigue over last 5-7 days.
PMH: paroxysmal atrial flutter, SSS / AV block s/p PPM, HTN/HLD
Plan
Dyspnea
-major cause is R Pna (aspiration vs SNF aquired)
-also treated for suspected HF. Weight down 2 KG
- lightheadeness and sob standing 12/05/23 . Sounded orhtostatic but nursing reported stable . Hold diuretic and monitro orthostatics
CAD s/p recent CABG
recheck echo today
recurrent afib - see below
Aflutter, paroxysmal
-Back in AF
-Rate control with amiodarone and metoprolol.
-CHADS2-Vasc = 4 (HTN, Age x2, Vascular Disease). Xarelto
-no short term plan to DCCV; but eventually will -plan for DCCV
Sick sinus syndrome / AV block
-R sided PPM set to VVI 40 bpm. Occluded venous system on the left shoulder with attempted venoplasty with only limited success.
-New right sided conduction system pacemaker implanted on 11/20/23.
HTN: Stable/controlled on current medication regimen.
Mixed hyperlipidemia -elevated LFT - hold statin statin
Prior pituitary surgery
Legally blind
Subjective: lightheadeness and sob standing 12/05/23 . Sounded orhtostatic but nursing reported stable .
DATA:
Intraoperative KEVIN, 11/16/2023:
Overall LVEF is approximately 60% with no RWMA.
Moderate mitral regurgitation.
Mild tricuspid regurgitation.
Cardiac Catheterization, 11/10/2023:
Left Main: Normal
LAD: Tandem 50% ostial and 40% proximal LAD stenoses.� There is 30% mid LAD stenosis.� The major diagonal branch has 60% proximal to mid stenosis.
Circumflex: 90% ostial circumflex stenosis.� There is 40% mid circumflex stenosis.� OM1 is very large with 70% mid stenosis.� OM 2 is a small to medium sized bifurcating vessel with 60% ostial stenosis.
RCA: 50% mid RCA stenosis.� The RCA has otherwise mild diffuse disease.� The acute marginal branch supplies the distal PDA territory.� There is no clearly visible PDA and the posterolateral branches are small.
.
Physical Exam
Vital Signs/Labs
Vital Signs
Temp Pulse Resp BP Pulse Ox
97.7 F 74 20 122/66 97
12/05/23 07:00 12/05/23 08:29 12/05/23 07:00 12/05/23 08:29 12/05/23 07:00
12/04/23 12/05/23 12/06/23
06:59 06:59 06:59
Actual Weight 103.618 kg
12/05/23 07:04
12/05/23 07:04
Magnesium 2.3 mg/dl (1.6-2.3) 12/02/23 14:57
Free T4 Cancelled 12/02/23 14:58
12/02/23 12/03/23
14:57 09:22
Qdx-Y-Hrnpyoxrflv Pept 5020 4010
Physical Exam
Constitutional: No acute distress
Cardiovascular: Rhythm & rate is regular
Respiratory: Respiratory effort normal
GI: Soft
Neuro/Psych: Alert
Data Reviewed
-
Date of Service: December 05, 2023
Medical Decision Making: Reviewed Test Results
Labs: Labs Reviewed by me
--- NOTE | 2023-12-05 10:40 | W.PN.HOSP.TC ---
Addendum entered and electronically signed by Elin Blankenship MD 12/05/23 13:02:
d/w pt
discussed INSULATION ENGINEMAN recommendation with Dr. Dukes of ENT on 12/04, recommended outpt follow up after discharge.
Original Note:
Today's Communication/Plan
-
continue antibiotics.
Assessment / Plan
Assessment / Plan
Healthcare acquired pneumonia with recent hospitalization and been in a detention home
Acute hypoxic respiratory insufficiency
Acute on Chronic hyponatremia
Moderate protein caloric malnutrition
History of the hypopituitarism and hypothyroidism while T4 is little high and T3 is low.
Coronary artery disease s/p recent CABG
Sick sinus syndrome status post pacemaker
A-fib/A flutter, paroxysmal
Chronic lower extremity edema, mild while he is on amlodipine
Hypertension.
Dilatory dysfunction
CHFpEF
PLAN:
Managed with broad-spectrum antibiotic,
Vanc/cefepime -> transitioned to zosyn. vancomycin discontinued due to negative MRSA swab.
probnp doesnt appear significant, i dont see any fever here. completed VSE and placed on dysphagia program diet.
Cough medication
Tylenol as needed
Sputum� culture
Monitor vital sign
xray with possible pneumonia and parapneumonic effusion - repeat XR 12/05 pending to assess if effusions have improved after diuresis.
COVID, flu, Legionella, strep neg
hold amlodipine
completed IV lasix, transition to oral lasix. Cards following. probnp elevated. per echo on last admission, stage 2 diastolic dysfunction. 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
Continue amiodarone, Lopressor and Xarelto
Levothyroxine decreased to 150. Patient to get repeat TSH with free T4 in 4 to 6 weeks outpatient
PT OT and assess functional status
CODE STATUS full code
DVT prophylaxis is Xarelto
Anticipated Discharge: > 48 hours
Subjective/Interval History
-
Date of Service: December 05, 2023
pt continues to improve day by day
less sob, remains on o2
Objective Data
-
Labs:
Laboratory Results
12/05/23
07:04
WBC 10.1
Hgb 9.0 L
Hct 27.8 L
Plt Count 299
Sodium 133 L
Potassium 3.7
Chloride 101
Carbon Dioxide 28
BUN 22 H
Creatinine 1.2
Glucose 120 H
Calcium 7.7 L
Total Bilirubin 1.5 H
AST 132 H
ALT 70 H
Alkaline Phosphatase 189 H
Vital Signs:
Vital Signs
Temp Pulse Resp BP Pulse Ox
97.7 F 74 20 122/66 97
12/05/23 07:00 12/05/23 08:29 12/05/23 07:00 12/05/23 08:29 12/05/23 07:00
I&O
12/04/23 12/05/23 12/06/23
06:59 06:59 06:59
Intake Total 1400 / 1880 1270 / 1270
Output Total 1350 / 1950 1450 / 1450
Balance 50 / -70 -180 / -180
Review of Systems
-
History Source: Patient
All other systems: Reviewed and negative
Physical Exam
-
General: Well Developed and No Apparent Distress
HEENT: Normocephalic, Atraumatic, Moist Mucous Membranes and Oxygen
Respiratory: Clear to Auscultation
Cardiac: Regular Rhythm and S1/S2; Negative Murmur, Rub or Gallop
GI: Soft, Nontender, Nondistended and Normal Bowel Sounds; Negative Organomegaly
Rectal: Deferred by Provider
Musculoskeletal: No Clubbing, No Cyanosis and No Edema
Skin: Negative Rash
Neuro: Nonfocal/Grossly Intact
Data Reviewed
-
Labs: Labs Reviewed by me
--- NOTE | 2023-12-05 16:27 | CM ---
Patient seen bedside with , Honey, initial assessment completed. Patient reports he was at [facility] and will not be returning. Patient and would prefer patient return home with VN services, or if CM can research [facility] in [place]. Patient reports he resides in a multiple story home with 11 steps up the stairs with a circular staircase. Patient denies VN or DME. Patient reports [facility] was the first experience at a SNF. Patient confirms PCP Dr. Iverson, pharmacy
[facility]. CM will continue to follow for discharge planning needs.
Plan; home with VN vs SNF.
[2023-12-05] MEDS: XARELTO 20 MG PO (16:54)
[2023-12-06] VITALS (28 sets, daily range): BP systolic 96–159; BP diastolic 63–118; PULSE 2–95
[2023-12-06] MEDS: SYNTHROID 150 MCG PO (04:47)
[2023-12-06] MEDS: ZOSYN 50 IV ×3 (04:47→15:56)
[2023-12-06 06:07] LABS: % Basophils 0.9 % (0-2); % Eosinophils 1.8 % (0-6); % Immature Granulocytes 0.7 % (0-0.5); % Lymphocytes 5.3 % (20.5-51.1); % Monocytes 5.7 % (1.7-9.3); % Neutrophils 85.6 % (42.2-75.2); Absolute Basophils 0.1 10^3/uL (0-0.2); Absolute Eosinophils 0.2 10^3/uL (0-0.7); Absolute Immature Granulocytes 0.1 10^3/uL (0-0.05); Absolute Lymphocytes 0.6 10^3/uL (1.2-3.4); Absolute Monocytes 0.6 10^3/uL (0.1-0.6); Hematocrit 29.5 % (39.0-52.0); Hemoglobin 9.7 g/dL (13.0-18.0); Mean Corp Hgb Conc. 32.9 g/dL (33.0-37.0); Mean Corpuscular Volume 88.3 fL (80.0-94.0); Nucleated Red Blood Cells % 0 % (-); Platelet Count 345 10^3/uL (130-400); Red Blood Cell Count 3.34 10^6/uL (4.70-6.10); Red Cell Dist. Width 15.6 % (11.5-14.5); White Blood Cell Count 10.5 10^3/uL (4.8-10.8)
[2023-12-06 06:45] LABS: ALT (SGPT) 122 U/L (0-50); AST (SGOT) 229 U/L (17-59); Albumin 2.7 g/dl (3.5-5.0); Alkaline Phosphatase 247 U/L (38-126); Blood Urea Nitrogen 24 mg/dl (9-20); Calcium 7.9 mg/dl (8.4-10.2); Carbon Dioxide 24 mmol/L (22-30); Chloride 102 mmol/L (98-107); Estimated Creatinine Clearance 58 ml/min; Glucose 109 mg/dl (70-99); Potassium 3.4 mmol/L (3.5-5.1); Sodium 133 mmol/L (135-145); Total Bilirubin 1.8 mg/dl (0.2-1.3); Total Protein 5.8 g/dl (6.3-8.2); eGFR 56.58
[2023-12-06] MEDS: KCL 40 MEQ PO (09:58)
[2023-12-06] MEDS: MUCINEX 600 MG PO (09:59)
[2023-12-06] MEDS: ZYLOPRIM 300 MG PO (09:59)
[2023-12-06] MEDS: TOPROL XL 12.5 MG PO (09:59)
[2023-12-06] MEDS: PACERONE 200 MG PO (09:59)
[2023-12-06] MEDS: LOW STRENGTH ASPIRIN 81 MG PO (10:00)
[2023-12-06] MEDS: DUONEB 3 ML INH ×2 (10:08→13:59)
--- NOTE | 2023-12-06 11:03 | W.PN.CD ---
Today's Communication / Plan
-
Some limitations to taking standing orthostatics. Patient still having symptoms of weakness and shortness of breath. Chest x-ray with right-sided pneumonia. Reviewed with Dr. Melendrez.
-Will await CT of chest which is being ordered by the hospitalist
-Hold diuretic
-Monitor orthostatics
Impression / Plan
-
Impression: 78M with recent NSTEMI -> CABG (11/16) & right sided PPM. He initially felt better, but developed dyspnea and fatigue over last 5-7 days.
PMH: paroxysmal atrial flutter, SSS / AV block s/p PPM, HTN/HLD
Plan
Dyspnea
-major cause is R Pna (aspiration vs SNF aquired)
-also treated for suspected HF. Weight down 2 KG
- lightheadeness and sob standing 12/05/23 . Sounded orhtostatic but nursing reported stable . Hold diuretic and monitro orthostatics
CAD s/p recent CABG
recheck echo today
recurrent afib - see below
Aflutter, paroxysmal
-Back in AF
-Rate control with amiodarone and metoprolol.
-CHADS2-Vasc = 4 (HTN, Age x2, Vascular Disease). Xarelto
-no short term plan to DCCV; but eventually will -plan for DCCV
Sick sinus syndrome / AV block
-R sided PPM set to VVI 40 bpm. Occluded venous system on the left shoulder with attempted venoplasty with only limited success.
-New right sided conduction system pacemaker implanted on 11/20/23.
HTN: Stable/controlled on current medication regimen.
Mixed hyperlipidemia -elevated LFT - hold statin statin
Prior pituitary surgery
Legally blind
Subjective: lightheadeness and sob standing 12/05/23 . Sounded orhtostatic but nursing reported stable .
DATA:
Intraoperative KEVIN, 11/16/2023:
Overall LVEF is approximately 60% with no RWMA.
Moderate mitral regurgitation.
Mild tricuspid regurgitation.
Cardiac Catheterization, 11/10/2023:
Left Main: Normal
LAD: Tandem 50% ostial and 40% proximal LAD stenoses.� There is 30% mid LAD stenosis.� The major diagonal branch has 60% proximal to mid stenosis.
Circumflex: 90% ostial circumflex stenosis.� There is 40% mid circumflex stenosis.� OM1 is very large with 70% mid stenosis.� OM 2 is a small to medium sized bifurcating vessel with 60% ostial stenosis.
RCA: 50% mid RCA stenosis.� The RCA has otherwise mild diffuse disease.� The acute marginal branch supplies the distal PDA territory.� There is no clearly visible PDA and the posterolateral branches are small.
.
Physical Exam
Vital Signs/Labs
Vital Signs
Temp Pulse Resp BP Pulse Ox
97.4 F 122 22 136/65 89
12/06/23 07:00 12/06/23 10:14 12/06/23 10:14 12/06/23 09:59 12/06/23 10:14
12/06/23 05:19
12/06/23 05:19
Magnesium 2.3 mg/dl (1.6-2.3) 12/02/23 14:57
Free T4 Cancelled 12/02/23 14:58
12/02/23 12/03/23
14:57 09:22
Rvs-V-Qcikzryhfwc Pept 5020 4010
Physical Exam
EENT: Anicteric
Cardiovascular: Rhythm & rate is regular
Respiratory: Other (Crackles right base no wheeze)
GI: Soft, Non tender, Normal bowel sounds and Other (No mass no hepatosplenomegaly)
Neuro/Psych: Alert
Data Reviewed
-
Date of Service: December 06, 2023
Medical Decision Making: Review of Case with other Provider (Reviewed treatment plan with Dr. Melendrez. Also had discussion with nurse regarding symptoms during attempted orthostatic vitals.)
EKG: Report Reviewed by me
Medical Tests (PFT, Pathology etc): Report Reviewed by me
Labs: Labs Reviewed by me
--- NOTE | 2023-12-06 11:39 | W.PN.HOSP.TC ---
Addendum entered and electronically signed by Joel Melendrez MD 12/06/23 15:43:
Spouse updated over the phone
Addendum entered and electronically signed by Joel Melendrez MD 12/06/23 12:03:
Spoke with cardiology and will order CT chest to better assess his respiratory status.
Original Note:
Today's Communication/Plan
-
Monitor vital signs and see plan
Diuresis per cardiology
Apply teds
Continue with antibiotics
Wean oxygen as tolerated
Assessment / Plan
Assessment / Plan
Healthcare acquired pneumonia with recent hospitalization and been in a [place] [facility] home
Acute hypoxic respiratory insufficiency
Acute on Chronic hyponatremia
Moderate protein caloric malnutrition
History of the hypopituitarism and hypothyroidism while T4 is little high and T3 is low.
Coronary artery disease s/p recent CABG
Sick sinus syndrome status post pacemaker
A-fib/A flutter, paroxysmal
Chronic lower extremity edema, mild while he is on amlodipine
Hypertension.
Dilatory dysfunction
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
Orthostatic hypotension
Hypokalemia
PLAN:
Managed with broad-spectrum antibiotic,
Vanc/cefepime -> transitioned to zosyn. vancomycin discontinued due to negative MRSA swab.
probnp doesnt appear significant, i dont see any fever here. completed VSE and placed on dysphagia program diet.
Cough medication
Tylenol as needed
Sputum� culture
Monitor vital sign
xray with possible pneumonia and parapneumonic effusion -repeat x-ray with pneumonia. Consider CT chest if symptoms do not improve
COVID, flu, Legionella, strep neg
hold amlodipine
completed IV lasix, transition to oral lasix. Cards following. probnp elevated. per echo on last admission, stage 2 diastolic dysfunction. 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
Continue amiodarone, Lopressor and Xarelto
Replete potassium
apply TEDS
Levothyroxine decreased to 150. Patient to get repeat TSH with free T4 in 4 to 6 weeks outpatient
PT OT and assess functional status
CODE STATUS full code
DVT prophylaxis is Xarelto
General: Overweight, lethargic but , alert and oriented x3
HEENT: Anicteric, pink conjunctiva
Respiratory: CTA, mild wheezing
Heart: S1, S2 regular, normal rate, no added sound.� Mild lower extremity edema, scar in the left upper chest
Gastrointestinal: Positive bowel sounds, soft, nontender, no guarding or rigidity or organomegaly
Neurological:� alert and oriented x3
Psychiatric: Normal mood, normal thought and judgment, normal affect
Anticipated Discharge: > 48 hours
Subjective/Interval History
-
Date of Service: December 06, 2023
denies pain
Objective Data
-
Labs:
Laboratory Results
12/06/23
05:19
WBC 10.5
Hgb 9.7 L
Hct 29.5 L
Plt Count 345
Sodium 133 L
Potassium 3.4 L
Chloride 102
Carbon Dioxide 24
BUN 24 H
Creatinine 1.3
Glucose 109 H
Calcium 7.9 L
Total Bilirubin 1.8 H
AST 229 H
ALT 122 H
Alkaline Phosphatase 247 H
Vital Signs:
Vital Signs
Temp Pulse Resp BP Pulse Ox
97.4 F 122 22 136/65 89
12/06/23 07:00 12/06/23 10:14 12/06/23 10:14 12/06/23 09:59 12/06/23 10:14
I&O
12/05/23 12/06/23 12/07/23
06:59 06:59 06:59
Intake Total 1270 / 1270 1440 / 1440
Output Total 1450 / 1450 965 / 965
Balance -180 / -180 475 / 475
--- NOTE | 2023-12-06 11:57 | W.PN.CD ---
Today's Communication / Plan
-
Continue treatment of pneumonia.
Impression / Plan
-
Impression: 78M with recent NSTEMI -> CABG (11/16) & right sided PPM. He initially felt better, but developed dyspnea and fatigue over last 5-7 days.
PMH: paroxysmal atrial flutter, SSS / AV block s/p PPM, HTN/HLD
Plan
Dyspnea
-major cause is R Pna (aspiration vs SNF aquired)
-also treated for suspected HF. Weight down 2 KG
- lightheadeness and sob standing 12/05/23 . Sounded orhtostatic but nursing reported stable . Diuretic held on 12/05/2023. Follow-up chest x-ray still shows extensive right-sided pneumonia.
-Treatment of pneumonia directed by primary team.
CAD s/p recent CABG
recheck echo today
recurrent afib - see below
Aflutter, paroxysmal
-Back in AF
-Rate control with amiodarone and metoprolol.
-CHADS2-Vasc = 4 (HTN, Age x2, Vascular Disease). Xarelto
-no short term plan to DCCV; but eventually will -plan for DCCV
Sick sinus syndrome / AV block
-R sided PPM set to VVI 40 bpm. Occluded venous system on the left shoulder with attempted venoplasty with only limited success.
-New right sided conduction system pacemaker implanted on 11/20/23.
HTN: Stable/controlled on current medication regimen.
Mixed hyperlipidemia -elevated LFT - hold statin statin
Prior pituitary surgery
Legally blind
Subjective: lightheadeness and sob standing 12/05/23 . Today he was more weak and short of breath he had to sit down before they were able to check his blood pressure there was some systolic change in blood pressure 130-111 when he sat up
DATA:
Intraoperative KEVIN, 11/16/2023:
Overall LVEF is approximately 60% with no RWMA.
Moderate mitral regurgitation.
Mild tricuspid regurgitation.
Cardiac Catheterization, 11/10/2023:
Left Main: Normal
LAD: Tandem 50% ostial and 40% proximal LAD stenoses.� There is 30% mid LAD stenosis.� The major diagonal branch has 60% proximal to mid stenosis.
Circumflex: 90% ostial circumflex stenosis.� There is 40% mid circumflex stenosis.� OM1 is very large with 70% mid stenosis.� OM 2 is a small to medium sized bifurcating vessel with 60% ostial stenosis.
RCA: 50% mid RCA stenosis.� The RCA has otherwise mild diffuse disease.� The acute marginal branch supplies the distal PDA territory.� There is no clearly visible PDA and the posterolateral branches are small.
.
Physical Exam
Vital Signs/Labs
Vital Signs
Temp Pulse Resp BP Pulse Ox
97.9 F 101 22 118/64 92
12/06/23 11:00 12/06/23 11:00 12/06/23 11:00 12/06/23 11:00 12/06/23 11:00
12/06/23 05:19
12/06/23 05:19
Magnesium 2.3 mg/dl (1.6-2.3) 12/02/23 14:57
Free T4 Cancelled 12/02/23 14:58
12/02/23 12/03/23
14:57 09:22
[id number] Pept 5020 4010
Physical Exam
Constitutional: No acute distress
EENT: Anicteric
Cardiovascular: Rhythm & rate is regular
Respiratory: Respiratory effort normal and Wheeze Absent
GI: Soft, Non tender and Normal bowel sounds
Neuro/Psych: Alert and Oriented
Data Reviewed
-
Date of Service: December 06, 2023
Medical Decision Making: Reviewed Test Results
EKG: Report Reviewed by me
Medical Tests (PFT, Pathology etc): Report Reviewed by me
Labs: Labs Reviewed by me
--- NOTE | 2023-12-06 13:37 | CON.PUL ---
Consultation
Consultation Request
Date/Time Consultation Requested: 12-06-23
Date/Time Consultation Performed: 12-06-23
Requesting Provider: Hospitalist
Performing Provider: Dr Mayers
Reason for Consultation: dyspnea
Medical History
-
Chief Complaint: dyspnea
History of Present Illness:
Mr Madhav Morales is a 78/M adm 12-02 from [facility] where he was rehabilitating after sustaining MSTEMI for which he received CABG at on 11-16-23 (also received R sided PPM for AVB), with 4 d h/o productive cough of greenish sputum, chills and
dyspnea. At ER, R sided infiltrate, started on vancomycin/cefepime, then changed to zosyn since 12-03. Increasing O2 requirements led to pulm consultation 12-06
On NRM 15L O2 at time of visit, POx 99% but moderate WOB, denies precordial or pleuritic CP, n/v, HENSON
Nonsmoker, not on home O2 or BDs
Past Medical History
Past Medical History: Other (see A&P for PMH/PSH)
Social History
Tobacco: Non-smoker
Alcohol: None
Drug: None
Personal:
Living: With Family
Employment: Retired
Family History
Family History: Reviewed & Not Pertinent
Allergies / Home Medications
Allergies
Allergy/AdvReac Type Severity Reaction Status Date / Time
No Known Allergies Allergy Verified 02/07/17 07:19
Home Medications
Medication Instructions Recorded Confirmed Last Taken Type
amlodipine 2.5 mg tablet 2.5 mg PO DAILY Blood Pressure 02/07/17 12/02/23 12/02/23 History
levothyroxine 175 mcg tablet 175 mcg PO DAILY Thyroid 02/07/17 12/02/23 12/02/23 History
rivaroxaban 20 mg tablet (Xarelto) 20 mg PO QPM Blood Clot 02/07/17 12/02/23 12/01/23 History
Prevention/Tx
allopurinol 300 mg tablet 300 mg PO DAILY Gout 11/09/23 12/02/23 12/02/23 History
metoprolol succinate 25 mg 12.5 mg PO DAILY Blood Pressure 11/09/23 12/02/23 12/02/23 History
tablet,extended release 24 hr
testosterone 50 mg/5 gram (1 %) 100 mg transdermal DAILY apply to 11/09/23 12/02/23 12/01/23 History
transdermal gel lower belly/B/L shoulders
aspirin 81 mg chewable tablet 81 mg PO DAILY Blood clot 11/21/23 12/02/23 12/02/23 Rx
(Children's Aspirin) prevention/tx #0 tabs
atorvastatin 40 mg tablet 40 mg PO DAILY High cholesterol 11/21/23 12/02/23 12/02/23 Rx
#90 tabs
acetaminophen 325 mg tablet 650 mg PO Q4HPRN PRN fever>100 12/02/23 12/02/23 Unknown History
acetaminophen 325 mg tablet 650 mg PO Q6H PRN mild pain 12/02/23 12/02/23 11/30/23 History
(Tylenol)
amiodarone 200 mg tablet 200 mg PO BID Arrhythmia 12/02/23 12/02/23 12/02/23 History
bisacodyl 10 mg rectal suppository 10 mg MI DAILY PRN constipation 12/02/23 12/02/23 Unknown History
(Dulcolax (bisacodyl))
furosemide 40 mg tablet 40 mg PO DAILY Fluid 12/02/23 12/02/23 12/02/23 History
Retention/Swelling
ipratropium 0.5 mg-albuterol 3 mg 3 ml inhalation R Q8 12/02/23 12/02/23 12/02/23 History
(2.5 mg base)/3 mL nebulization Lung/Breathing Issues
soln
ipratropium 0.5 mg-albuterol 3 mg 3 ml inhalation R Q8HPRN PRN 12/02/23 12/02/23 Unknown History
(2.5 mg base)/3 mL nebulization wheezing
soln
magnesium hydroxide 1,200 mg 1,200 mg PO Q48H Supplement 12/02/23 12/02/23 12/01/23 History
chewable tablet
melatonin 5 mg tablet 5 mg PO HS Sleep 12/02/23 12/02/23 12/01/23 History
polyethylene glycol 3350 17 gram 17 g PO DAILY Constipation 12/02/23 12/02/23 12/02/23 History
oral powder packet (Miralax)
sennosides 8.6 mg-docusate sodium 1 tab-cap PO DAILY Constipation 12/02/23 12/02/23 12/02/23 History
50 mg tablet (Senna Plus)
sodium phosphates 19 gram-7 118 ml MI DAILYPRN PRN constipation 12/02/23 12/02/23 Unknown History
gram/118 mL enema (Fleet Enema)
Review of Systems
-
History Source: Patient
All other systems: Negative unless noted
Constitutional: Fatigue
Respiratory: Cough and Trouble Breathing
Neuro: Weakness
Vitals / Labs / Diagnostic Testing
Vital Signs
Temp Pulse Resp BP Pulse Ox
97.9 F 101 22 118/64 92
12/06/23 11:00 12/06/23 11:00 12/06/23 11:00 12/06/23 11:00 12/06/23 11:00
Lab Data
12/06/23 05:19
12/06/23 05:19
Microbiology
12/02/23 15:56 Blood/Venous Blood Culture - Preliminary
No Growth in 72 hours- Final report to follow
12/02/23 15:56 Blood/Venous Blood Culture - Preliminary
No Growth in 72 hours- Final report to follow
12/02/23 23:07 Nose Nasal Screen MRSA (PCR) - Final
MRSA not detected - performed by PCR methodology.
12/03/23 10:24 Urine Legionella Urinary Antigen - Final
Negative for Legionella pneumophila Serogroup 1 antigen.
A negative result does not rule out the possiblity of
Legionella infection due to other serogroups or species of
Legionella. Clinical correlation is recommended.
12/03/23 10:24 Urine Streptococcus pneumoniae Antigen (M - Final
Negative for Streptococcus pneumoniae antigen.
A negative result does not exclude infection with
Streptococcus pneumoniae. Clinical correlation is
recommended.
Diagnostic Testing:
Physical Exam
-
HEENT: Normocephalic and Moist Mucous Membranes
Cardiovascular: Regular Rhythm, Murmur (n), Peripheral Edema (CHERRY), Calf Tenderness and JVD (trace)
Respiratory: Wheeze, Rhonchi and Accessory Resp Muscle Use
GI: Soft, Non Distended and Non Tender
Neurology: Awake, Oriented and No Motor Deficits
Skin: Dry
General: Respiratory Distress
Assessment
-
Assessment:
Mr Madhav Morales is a 78/M adm 12-02 from [facility] where he was rehabilitating after sustaining MSTEMI for which he received CABG at on 11-16-23 (also received R sided PPM for AVB), with 4 d h/o productive cough of greenish sputum, chills and
dyspnea. At ER, R sided infiltrate, started on vancomycin/cefepime, then changed to zosyn since 12-03. Increasing O2 requirements led to pulm consultation 12-06
Impression:
Bilateral pneumonia/pneumonitis R>>L
Bilateral dependent pleural effusions and compressive L base atelectasis
Resolving leukocytosis
Persistent moderate anemia
Transaminitis
Elevated BNP
Normal PCT 12-03
Dysphagia: mild oral and mild-moderate pharyngeal
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
CAD s/p CABGx4 and PPM (AVB) early Nov 2023
PAFib on rivaroxaban, L sided PPM in past, on amiodarone
HTN
HLD
Gout
Hypothyroidism
Diastolic dysfunction
Moderate MR
Chronic hyponatremia
Pituitary tumor s/p resection
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
R sided blindness
TIA
Fatty liver
Cholecystectomy
Nonsmoker
Plan:
O2 protocol to continue
On NRM 15L O2 at time of visit, POx 99% at rest ^WOB
Keep asp precs
Blood cxs, MRSA screening, COVID/flu/Leg/Strep negative
No sputum cx available
On atbs since adm, currently on zosyn
Noted ^AST, ALT, AP, TB, could be secondary to zosyn and/or HF
Consider ID consult and updating TTE
Rec reinitiation of diuretic IV
Chest CT s/c 12-06, reviewed, pending official report, diffuse pneumonitis with scattered denser areas on R field and patchy pneumonitis areas at MANUEL, bilateral dependent moderate PF and compressive L base atelectasis
Suspect progressive changes by comparing to adm CXR
Rec initiation of empiric systemic CS and BPAP trial at 16/ with fiO2 to keep POx>=92%
Keep NPO x meds in meantime, change all possible meds to IV for now
Seen by Speech, VSE 12-04 showed mild O and mild-mod P dysphagia
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
Follow anemia, transfuse if Hgb <7
Rec upgrading to IMU
Full code status
Prognosis guarded
TT Dr Melendrez
Diagnostic tests:
CXR 12-05-23, c/w 20 and 11-21-23. Baseline with no infiltrates. Fillms this adm with new onset R sided infiltrate and mild pulm vasc congestion on L. Last adm with new L sided PPM (already had L sided PPM)
[2023-12-06] MEDS: MUCOMYST 10% 2 ML INH (13:58)
[2023-12-06] MEDS: COLACE 100 MG PO (15:56)
[2023-12-06] MEDS: MIRALAX 17 GRAMS PO (15:56)
--- NOTE | 2023-12-06 16:09 | CON.ID ---
Consultation
-
Date/Time Consultation Requested: December 06, 2023 1600
Date/Time Consultation Performed: December 06, 2023 1610
Requesting Provider: Dr. Joel Melendrez
Performing Provider: Dr. Aislinn Ibrahim
Reason for Consultation: PNA
Chief Complaint / Past History
Chief Complaint
Cough and shortness of breath
History of Present Illness
78-year-old male with history of hypertension, atrial fibrillation, chronic lower extremity edema, who was recently hospitalized from November 09 to November 21 when he presented with NSTEMI status post rCABG x 4 on November 16, 2023 and new pacemaker
placement November 20, 2023. He was discharged to [facility] rehab. However he was readmitted on December 02 for approximately 1 week history of worsening shortness of breath with activity and cough. He was very weak. No fever no chills. White count
was elevated 13.7. Chest x-ray showed new right upper lobe and lower lobe pneumonia with parapneumonic effusion. Procalcitonin was 0.21. BNP 5020. He was placed on vancomycin and cefepime. The vancomycin was discontinued and cefepime was
replaced with Zosyn on December 03. Patient noted to have hoarse voice and weak cough. December 04, he underwent video barium swallow which showed aspiration with thin liquid. Patient has been getting diuresis. However his oxygen requirement
continues to go up. He is now at 15 L and on Ventimask. He is about to be placed on BiPAP. Patient reports still very short of breath. The cough is nonproductive. He admits to dysphagia. No fevers. No chills. No worsening lower extremity
edema. No diarrhea. No dysuria.
Past History
Additional Past Medical History:
Hypertension
Hyperlipidemia
Hypothyroidism
Hx cardiac arrest s/p left chest PPM
Right chest PPM implant 11/20/23
CAD s/p CABG x 4 (11/16/23)
HFpEF
Pituitary tumor (benign) status post resection
TIA
Chronic LE edema
cholecystectomy
Allergy History:
No Known Allergies Allergy (Verified 02/07/17 07:19)
Medications Reviewed: Yes
Current Antibiotics:
Zosyn d4
Social History
Tobacco: Non-Smoker
Alcohol: None
Drug: None
Personal:
Family History
Family History: Not Pertinent
Review of Systems
Review of Systems
General: Change in Appetite; Negative Fever or Chills
HEENT: Negative Sinus Problems, Headache or Pharyngitis
Cardiovascular: Dyspnea; Negative Chest Pain
Respiratory: Dyspnea and Cough; Negative Sputum Production
Gasteroenterology: Other (no diarrhea); Negative Nausea or Vomiting
Genital / Urological: Negative Dysuria or Flank Pain
Endocrine: Weakness and Fatigue
Skin / Hair / Nails: Negative Rash
Neurological: Negative Headache or Dizziness
All systems: All other systems were reviewed and were negative
Vital Signs
Temp Pulse Resp BP Pulse Ox
98 F 95 30 128/68 97
12/06/23 15:00 12/06/23 15:00 12/06/23 15:00 12/06/23 15:00 12/06/23 15:00
Physical Exam
Physical Exam
Constitutional: Acutely Ill
Head: Other (No frontal/maxillary sinus tenderness)
Eyes: No Conjunctival Hemorrhage and Sclera Anicteric
Pharynx: Benign
Cardiovascular: Irregular Rate and S1/S2
Pulmonary: Other (Decreased BS at bases)
Gastrointestinal: Soft, Non Tender, Non Distended and Normal Bowel Sounds
Genito-Urinary: Negative Jade or CVA Tenderness
Extremities: Edema (BLE 1+)
Skin: Negative Rash
Wound: Other (sternum incision healing. left chest wall incision with steri-strip without erythema)
Neurological: AO x 3
Lab / Diagnostic Study Results
12/06/23 05:19
12/06/23 05:19
Abs Immat Gran (auto) 0.1 10^3/uL (0-0.05) H 12/06/23 05:19
Absolute Neuts (auto) 9.0 10^3/uL (1.4-6.5) H 12/06/23 05:19
Absolute Lymphs (auto) 0.6 10^3/uL (1.2-3.4) L 12/06/23 05:19
Absolute Monos (auto) 0.6 10^3/uL (0.1-0.6) 12/06/23 05:19
Absolute Basos (auto) 0.1 10^3/uL (0-0.2) 12/06/23 05:19
Immature Gran % 0.7 % (0-0.5) H 12/06/23 05:19
Neutrophils % 85.6 % (42.2-75.2) H 12/06/23 05:19
Lymphocytes % 5.3 % (20.5-51.1) L 12/06/23 05:19
Monocytes % 5.7 % (1.7-9.3) 12/06/23 05:19
Eosinophils % 1.8 % (0-6) 12/06/23 05:19
Basophils % 0.9 % (0-2) 12/06/23 05:19
Procalcitonin 0.21 ng/ml (0.0-0.25) 12/03/23 09:22
Microbiology Results
Micro:
12/02/23 15:56 Blood Culture - Preliminary
Blood/Venous No Growth in 4 days- Final report to follow
12/02/23 15:56 Blood Culture - Preliminary
Blood/Venous No Growth in 4 days- Final report to follow
12/02/23 23:07 Nasal Screen MRSA (PCR) - Final
Nose MRSA not detected - performed by PCR methodology.
12/03/23 10:24 Legionella Urinary Antigen - Final
Urine Negative for Legionella pneumophila Serogroup 1 antigen.
A negative result does not rule out the possiblity of
Legionella infection due to other serogroups or species of
Legionella. Clinical correlation is recommended.
Streptococcus pneumoniae Antigen (M - Final
Negative for Streptococcus pneumoniae antigen.
A negative result does not exclude infection with
Streptococcus pneumoniae. Clinical correlation is
recommended.
12/02/23 14:57 Influenza Types A & B (CLEO) - Final
Nasal Swab Negative for Influenza A & B, NAAT
Negative results must be combined with clinical observations
and patient history.
Nucleic Acid Amplification test (NAAT)performed on the
[employer] platform.
12/06/23 CT chest wo IV contrast: There is groundglass pattern throughout both lungs, right much worse than left with focal areas of airspace disease predominantly on the right. The pattern is most suggestive of diffuse pneumonia. Moderately large
bilateral pleural effusions.
12/05/23 CXR: Stable extensive right lung pneumonia. Stable post operative changes.
12/02/23 CXR: Significant change in the appearance of the lungs, with new right upper and lower lung zone pneumonia and parapneumonic effusion.
Assessment / Plan
# Aspiration pneumonia. Vocal cord dysfunction post CABG.
# Acute on chronic heart failure
# Acute hypoxemic respiratory failure due to PNA and heart failure/moderate bilateral pleural effusions. Increasing 02 requirement
# Acute elevated LFTs - ?zosyn vs congestive hepatitis
# Leukocytosis resolved. Afebrile
# s/p recent CABG x 4 (11/16/2023)
- COVID/Flu neg
- blood cx neg
- Replace Zosyn with cefepime and metronidazole.
-Aspiration precaution
-Resume diuresis per Pulm
- Follow LFT's
- Follow respiratory and oxygen status.
--- NOTE | 2023-12-06 16:24 | CM ---
Spoke with Honey davila .
Pt to be transferred to IMU or ICU overflow today when bed ready.
is aware.
At this time PT OT says SNF.
Reviewed with .
spoke of [facility] in [place] and was asking if he could go there.
Will need to assess needs closer to discharge.
PLAN Will probably need SNF at in.
[2023-12-06] MEDS: SOLU-MEDROL PF 40 MG IV ×2 (17:02→22:13)
[2023-12-06] MEDS: XARELTO 20 MG PO (17:02)
--- NOTE | 2023-12-06 20:54 | PTCARENOTE ---
pt pulling at bipap mask and desatting to 70's. Route Salesman and rt notified. bilat upper softlimb restraints ordered and applied. pt placed on highflow. pt tolerating highflow. Will closely monitor.
[2023-12-06] MEDS: MUCINEX PO (20:57)
[2023-12-06] MEDS: COLACE PO (20:57)
[2023-12-06] MEDS: PACERONE PO (20:58)
--- NOTE | 2023-12-06 22:00 | PTCARENOTE ---
pt calm and cooperative at this time. restraints removed, dry cleaner helper aware of cxr results. no nausea or vomiting at this time. will monitor.
[2023-12-06] MEDS: MAXIPIME 2000 MG IV (22:12)
[2023-12-06] MEDS: FLAGYL 500 MG 100 IV (22:12)
[2023-12-06] MEDS: STERILE WATER FOR INJECTION 10 ML IV (22:13)
[2023-12-07] VITALS (78 sets, daily range): BP systolic 86–136; BP diastolic 53–103; PULSE 78–82; BMI 31.1
[2023-12-07] MEDS: SOLU-MEDROL PF 40 MG IV ×4 (04:07→21:03)
[2023-12-07 04:24] LABS: % Basophils 0.1 % (0-2); % Immature Granulocytes 0.6 % (0-0.5); % Monocytes 1.1 % (1.7-9.3); % Neutrophils 95.2 % (42.2-75.2); Absolute Immature Granulocytes 0.1 10^3/uL (0-0.05); Absolute Lymphocytes 0.4 10^3/uL (1.2-3.4); Absolute Monocytes 0.2 10^3/uL (0.1-0.6); Absolute Neutrophils 13.3 10^3/uL (1.4-6.5); Hematocrit 26.8 % (39.0-52.0); Hemoglobin 8.8 g/dL (13.0-18.0); Mean Corp Hgb Conc. 32.8 g/dL (33.0-37.0); Mean Corpuscular Volume 88.4 fL (80.0-94.0); Nucleated Red Blood Cells % 0.1 % (-); Platelet Count 340 10^3/uL (130-400); Red Blood Cell Count 3.03 10^6/uL (4.70-6.10); Red Cell Dist. Width 16.1 % (11.5-14.5)
[2023-12-07 04:46] LABS: ALT (SGPT) 133 U/L (0-50); AST (SGOT) 199 U/L (17-59); Albumin 2.5 g/dl (3.5-5.0); Alkaline Phosphatase 245 U/L (38-126); Blood Urea Nitrogen 32 mg/dl (9-20); Calcium 7.9 mg/dl (8.4-10.2); Carbon Dioxide 24 mmol/L (22-30); Chloride 105 mmol/L (98-107); Estimated Creatinine Clearance 54 ml/min; Glucose 159 mg/dl (70-99); Potassium 4.1 mmol/L (3.5-5.1); Sodium 134 mmol/L (135-145); Total Bilirubin 1.7 mg/dl (0.2-1.3); Total Protein 5.5 g/dl (6.3-8.2); eGFR 51.77
[2023-12-07] MEDS: FLAGYL 500 MG 100 IV ×3 (05:18→21:02)
[2023-12-07] MEDS: STERILE WATER FOR INJECTION 10 ML IV ×3 (05:19→21:02)
[2023-12-07] MEDS: MAXIPIME 2000 MG IV ×3 (05:19→21:02)
[2023-12-07] MEDS: SYNTHROID PO (06:40)
[2023-12-07] MEDS: MIRALAX PO (07:35)
[2023-12-07] MEDS: COLACE PO ×2 (07:35→19:47)
[2023-12-07] MEDS: LOW STRENGTH ASPIRIN PO (07:35)
[2023-12-07] MEDS: MUCINEX PO ×2 (07:35→19:48)
[2023-12-07] MEDS: ZYLOPRIM PO (07:36)
[2023-12-07] MEDS: TOPROL XL PO (07:36)
[2023-12-07] MEDS: PACERONE PO (07:36)
--- NOTE | 2023-12-07 07:55 | PTOTSP ---
chart reviewed, noted pt transferred to IMU level of care due to O2 needs. will require new PT/OT orders once pt is medically stable to continue with therapy plan of care.
[2023-12-07] MEDS: DUONEB 3 ML INH (08:09)
--- NOTE | 2023-12-07 08:49 | CON.GI ---
Addendum entered and electronically signed by Garcia Rolle MD 12/07/23 14:55:
I saw and examined the patient.
The PA's note was reviewed and I agree with the note.
78 year old male who had a recent NSTEMI, CABGx4 and pacemaker, developed cough, SOB, weakness while at [facility] and was admitted to for healthcare-acquired pneumonia on 12/02/2023. GI is consulted to evaluate patient due to abdominal x-ray
showing air distension of the stomach, colon and rectum, likely due to acute adynamic ileus. Pt does c/o nausea intermittently, and reports one episode of vomiting 'black stuff' yesterday. No abdominal pain.
Examination-abdomen was soft. Nontender. Currently on NG tube decompression-dark bilious fluid noted
--Adynamic ileus
-- Hypoxic respiratory failure with pneumonia
-- Acute on chronic heart failure
-- Recent CABG
-- Elevated liver test-possible sepsis versus congestive hepatopathy vs drug-induced (Zosyn was switched by ID)
plan
N.p.o.
Continue NG tube decompression
Avoid opioids
Correction of electrolytes as per medical team
Repeat abdominal x-ray tomorrow a.m.
Trend LFT
Check hepatitis panel
Will recommend ultrasound abdomen
Will follow
Original Note:
Consultation
-
Date/Time Consultation Requested: 12/07/23 0200
Date/Time Consultation Performed: 12/07/23 0835
Requesting Provider: Jose Cruz BURROWS
Performing Provider: Keisha Harrison PA-C / Dr. Rolle
Reason for Consultation: ileus
Medical History
Chief Complaint / HPI
Chief Complaint: cough, nausea
History of Present Illness:
Madhav is a 78 year old male with a past medical history of HTN, hyperlipidemia, atrial fibrillation (on Xarelto), recent NSTEMI for which he underwent CABG on 11/16/23 and subsequent new pacemaker implanted on 11/20/23 who was doing well after discharge
to [facility], but unfortunately developed productive cough, SOB, weakness and fatigue and was admitted at for healthcare-acquired pneumonia on 12/02/23. He is currently in ICU on antibiotics and BiPAP. Abdominal x-ray 12/06/23 showing moderate
distension of the stomach, colon and rectum with air and contrast material, most likely secondary to an acute adynamic ileus. No evidence of SBO. Patient denies any abdominal pain, but has felt nauseous. Yesterday he states he vomited 'some black
stuff.' He states he has chronic constipation, usually managed at home with Miralax every other day. Colonoscopy in 2016 showed an 8mm adenoma, he was due for repeat colonoscopy and was actually scheduled to see Dr. Rolle in the office on 11/23/23
but had to cancel due to the all of his other health issues. He has never had an endoscopy. He denies heartburn, reflux, dysphagia, melena or hematochezia.
Past Medical History
Past Medical History: HTN, Hypercholesterolemia and Other (a fib (on Xarelto), recent NSTEMI, colon polyps, gout)
Past Surgical History: Other (CABG x4 11/16/23, pacemaker 11/20/23, cardiac catheterization, cholecystectomy)
Social History
Tobacco: Non-Smoker
Alcohol: Occasional
Personal:
Living: With Family
Allergies / Home Medications
Allergy/AdvReac Type Severity Reaction Status Date / Time
No Known Allergies Allergy Verified 02/07/17 07:19
Medication Instructions Recorded
amlodipine 2.5 mg tablet 2.5 mg PO DAILY Blood Pressure 02/07/17
levothyroxine 175 mcg tablet 175 mcg PO DAILY Thyroid 02/07/17
rivaroxaban 20 mg tablet (Xarelto) 20 mg PO QPM Blood Clot 02/07/17
Prevention/Tx
allopurinol 300 mg tablet 300 mg PO DAILY Gout 11/09/23
metoprolol succinate 25 mg 12.5 mg PO DAILY Blood Pressure 11/09/23
tablet,extended release 24 hr
testosterone 50 mg/5 gram (1 %) 100 mg transdermal DAILY apply to 11/09/23
transdermal gel lower belly/B/L shoulders
aspirin 81 mg chewable tablet 81 mg PO DAILY Blood clot 11/21/23
(Children's Aspirin) prevention/tx #0 tabs
atorvastatin 40 mg tablet 40 mg PO DAILY High cholesterol 11/21/23
#90 tabs
acetaminophen 325 mg tablet 650 mg PO Q4HPRN PRN fever>100 12/02/23
acetaminophen 325 mg tablet 650 mg PO Q6H PRN mild pain 12/02/23
(Tylenol)
amiodarone 200 mg tablet 200 mg PO BID Arrhythmia 12/02/23
bisacodyl 10 mg rectal suppository 10 mg MI DAILY PRN constipation 12/02/23
(Dulcolax (bisacodyl))
furosemide 40 mg tablet 40 mg PO DAILY Fluid 12/02/23
Retention/Swelling
ipratropium 0.5 mg-albuterol 3 mg 3 ml inhalation R Q8 12/02/23
(2.5 mg base)/3 mL nebulization Lung/Breathing Issues
soln
ipratropium 0.5 mg-albuterol 3 mg 3 ml inhalation R Q8HPRN PRN 12/02/23
(2.5 mg base)/3 mL nebulization wheezing
soln
magnesium hydroxide 1,200 mg 1,200 mg PO Q48H Supplement 12/02/23
chewable tablet
melatonin 5 mg tablet 5 mg PO HS Sleep 12/02/23
polyethylene glycol 3350 17 gram 17 g PO DAILY Constipation 12/02/23
oral powder packet (Miralax)
sennosides 8.6 mg-docusate sodium 1 tab-cap PO DAILY Constipation 12/02/23
50 mg tablet (Senna Plus)
sodium phosphates 19 gram-7 118 ml MI DAILYPRN PRN constipation 12/02/23
gram/118 mL enema (Fleet Enema)
Review of Systems
-
History Source: Patient
All other systems: A 12 pt ROS was Negative except as stated above in HPI
Vital Signs
Temp Pulse Resp BP Pulse Ox
97.7 F 76 31 123/80 93
12/07/23 07:50 12/07/23 08:11 12/07/23 08:11 12/07/23 07:30 12/07/23 08:12
Physical Exam
Exam
GI: Soft, Non Tender, Distended and Other (hypoactive bowel sounds)
Skin: Warm and Dry
Neuro: AO x 3
Psych: Calm
Results
WBC 14.0 10^3/uL (4.8-10.8) H 12/07/23 03:58
Hgb 8.8 g/dL (13.0-18.0) L 12/07/23 03:58
Hct 26.8 % (39.0-52.0) L 12/07/23 03:58
MCV 88.4 fL (80.0-94.0) 12/07/23 03:58
Plt Count 340 10^3/uL (130-400) 12/07/23 03:58
Absolute Neuts (auto) 13.3 10^3/uL (1.4-6.5) H 12/07/23 03:58
Sodium 134 mmol/L (135-145) L 12/07/23 03:58
Potassium 4.1 mmol/L (3.5-5.1) 12/07/23 03:58
Chloride 105 mmol/L (98-107) 12/07/23 03:58
Carbon Dioxide 24 mmol/L (22-30) 12/07/23 03:58
BUN 32 mg/dl (9-20) H 12/07/23 03:58
Creatinine 1.4 mg/dL (0.7-1.3) H 12/07/23 03:58
Calcium 7.9 mg/dl (8.4-10.2) L 12/07/23 03:58
Total Bilirubin 1.7 mg/dl (0.2-1.3) H 12/07/23 03:58
AST 199 U/L (17-59) H 12/07/23 03:58
ALT 133 U/L (0-50) H 12/07/23 03:58
Alkaline Phosphatase 245 U/L (38-126) H 12/07/23 03:58
Diagnostic Image Results:
Abdominal x-ray, 12/06/23:
1. � Moderate distention of the stomach, colon, and rectum with air and contrast material which is most likely secondary to an acute adynamic ileus.
2. � No radiographic evidence for small bowel obstruction.
Prior GI Procedures:
EGD: never
Colonoscopy:
06/17/2016, Dr. Nguyen: �
-One 8 mm polyp in the cecum. No other significant abnormalities were identified in a careful
�� � examination of the remainder of the colon.
� � � -
Assessment / Plan
-
78 year old male who had a recent NSTEMI, CABGx4 and pacemaker, developed cough, SOB, weakness while at [facility] and was admitted to for healthcare-acquired pneumonia on 12/02/2023. GI is consulted to evaluate patient due to abdominal x-ray
showing air distension of the stomach, colon and rectum, likely due to acute adynamic ileus. Pt does c/o nausea intermittently, and reports one episode of vomiting 'black stuff' yesterday. No abdominal pain.
IMPRESSION / PLAN:
Ileus, likely secondary to the pneumonia/infection
-NPO
-NG tube for air decompression
Colon Polyps, overdue for surveillance
-outpatient GI followup recommended
Other medical issues managed as per Pulmonology, Cardiology, Hospitalist.
We will follow.
-
-
Thank you for consultation and allowing me to participate in the patient's care. Please call the manager functional GI physician during the after hours with any questions or concerns.
--- NOTE | 2023-12-07 08:54 | W.PN.PUL3 ---
Today's Communication / Plan
-
HFNC
Atbs
CS
Assessment
-
Assessment:
Mr Madhav Morales is a 78/M adm 12-02 from [facility] where he was rehabilitating after sustaining MSTEMI for which he received CABG at on 11-16-23 (also received R sided PPM for AVB), with 4 d h/o productive cough of greenish sputum, chills and
dyspnea. At ER, R sided infiltrate, started on vancomycin/cefepime, then changed to zosyn since 12-03. Increasing O2 requirements led to pulm consultation 12-06
Impression:
Bilateral pneumonia/pneumonitis R>>L
Bilateral dependent pleural effusions and compressive L base atelectasis
Resolving leukocytosis
Persistent moderate anemia
Transaminitis
Elevated BNP
Normal PCT 12-03
Dysphagia: mild oral and mild-moderate pharyngeal
Ileus
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
CAD s/p CABGx4 and PPM (AVB) early Nov 2023
PAFib on rivaroxaban, L sided PPM in past, on amiodarone
HTN
HLD
Gout
Hypothyroidism
Diastolic dysfunction
Moderate MR
Chronic hyponatremia
Pituitary tumor s/p resection
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
R sided blindness
TIA
Fatty liver
Cholecystectomy
Nonsmoker
Plan:
Transferred to IMU level of care due to worsening resp failure 12-06
Blood cxs, MRSA screening, COVID/flu/Leg/Strep negative
No sputum cx available yet, ordered
On atbs since adm, currently on zosyn
Noted ^AST, ALT, AP, TB, could be secondary to zosyn and/or HF
ID consulted: atbs changed to cefepime/metronidazole on 12-06
Consider resp viral panel, order authorized to ID colleagues only
Consider updating TTE
Reportedly some orthostatic findings this AM re drop on SBP only as tested by RN
Diuretics on hold for now
Though no suspected amiodarone toxicity, given significant changes on chest CT will be rec to avoid amiodarone
Chest CT s/c 12-06, reviewed, pending official report, diffuse pneumonitis with scattered denser areas on R field and patchy pneumonitis areas at MANUEL, bilateral dependent moderate PF and compressive L base atelectasis
Suspect progressive changes by comparing to adm CXR
Initiated empiric systemic CS (MP 40 mg IV q6) and BPAP trial at 16/8 with fiO2 to keep POx>=92%
Could not tolerated last evening upon initiation at ICU, tolerated HFNC, currently on 1.0/55L, POx low 90s
Keep NPO x meds in meantime, change all possible meds to IV for now
Seen by Speech, VSE 12-04 showed mild O and mild-mod P dysphagia
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
Abd distension and mild pain
AXR with adynamic ileus
GI following, requested NGT placement, will compromise use of HFNC, will check with GI
Follow anemia, transfuse if Hgb <7
Full code status
Prognosis remains guarded
D/w Mr and Mrs Morales at bedside 12-07
D/w Dr Byrd
Diagnostic tests:
CXR 12-05-23, c/w and 11-21-23. Baseline with no infiltrates. Fillms this adm with new onset R sided infiltrate and mild pulm vasc congestion on L. Last adm with new L sided PPM (already had L sided PPM)
Subjective Data
-
Date of Service:
Date of Service: December 07, 2023
Chief Complaint: Pulmonary Follow Up
Subjective:
Transferred to IMU last evening
Could not tolerate BPAP, started on HFNC
Mild abd distension and pain: AXR suspicious for ileus
Review of Systems
General: Fever (n), Sweats (n), Chills (n) and Satisfactory Appetite (n)
HEENT: Epistaxis (n)
Cardiopulmonary: Dyspnea, Cough, Sputum Production (n) and Chest Pain (n)
GI: Abdominal Pain, Nausea and Vomiting
Neuro: Weakness
Objective Data
Data Reviewed
Vital Signs / I&O / Oxygen:
Vital Signs
Temp Pulse Resp BP Pulse Ox
97.7 F 76 31 123/80 93
12/07/23 07:50 12/07/23 08:11 12/07/23 08:11 12/07/23 07:30 12/07/23 08:12
Intake and Output
12/06/23 12/07/23 12/08/23
06:59 06:59 06:59
Intake Total 1440 / 1440 440 / 440
Output Total 965 / 965 675 / 675
Balance 475 / 475 -235 / -235
SaO2 93
Nasal Cannula flow liters per 50
minute
Physical Exam
General: Respiratory Distress
HEENT: Normocephalic and Moist Mucous Membranes
Cardiovascular: Regular Rhythm, Peripheral Edema (CHERRY) and Calf Tenderness (n)
Respiratory: Wheeze (n), Crackles, Accessory Resp Muscle Use and Stridor (n)
GI: Distended and Non Tender
Skin: Dry
Labs/Micro/Reports
Lab Data
12/07/23 03:58
12/07/23 03:58
Laboratory Results
12/06/23
19:37
pH Cancelled
pCO2 Cancelled
pO2 Cancelled
HCO3 Cancelled
O2 Delivery Level Cancelled
Microbiology
12/02/23 15:56 Blood/Venous Blood Culture - Preliminary
No Growth in 4 days- Final report to follow
12/02/23 15:56 Blood/Venous Blood Culture - Preliminary
No Growth in 4 days- Final report to follow
[2023-12-07] MEDS: LASIX 20 MG IV (09:51)
--- NOTE | 2023-12-07 10:55 | W.PN.ID1 ---
Date of Service
Date of Service: December 07, 2023
Today's Communication
Continue cefepime/metronidazole.
Assessment / Plan
# Aspiration pneumonia. Vocal cord dysfunction post CABG.
# Acute on chronic heart failure
# Acute hypoxemic respiratory failure due to PNA and heart failure/moderate bilateral pleural effusions. Increasing 02 requirement
# Acute elevated LFTs - ?zosyn vs congestive hepatitis
# Leukocytosis - on steroid
# Ileus
# s/p recent CABG x 4 (11/16/2023)
- COVID/Flu neg
- blood cx neg
- Continue cefepime and metronidazole (d5 abx)
-Aspiration precaution
-Resume diuresis per Pulm
- Follow LFT's
- Follow respiratory and oxygen status.
#Additional Past Medical History:
Hypertension
Hyperlipidemia
Hypothyroidism
Hx cardiac arrest s/p left chest PPM
Right chest PPM implant 11/20/23
CAD s/p CABG x 4 (11/16/23)
HFpEF
Pituitary tumor (benign) status post resection
TIA
Chronic LE edema
cholecystectomy
Chief Complaint
-: Pneumonia
Subjective / Review of Systems
SOB better on high flow oxygen.
Vital Signs / Physical Exam
Vital Signs
Vital Signs
Temp Pulse Resp BP Pulse Ox
97.7 F 76 31 123/80 93
12/07/23 07:50 12/07/23 08:11 12/07/23 08:11 12/07/23 07:30 12/07/23 08:12
Physical Exam
Constitutional: Acutely Ill
Cardiovascular: Irregular Rate and S1/S2
Pulmonary: Other (decreased BS)
Gastrointestinal: Soft, Non Tender, Non Distended and Normal Bowel Sounds
Extremities: Edema
Neurological: Awake and Alert
Objective Data
Lab Data
Lab Results
12/07/23 03:58
12/07/23 03:58
Estimated Creat Clear 54 ml/min 12/07/23 03:58
Total Bilirubin 1.7 mg/dl (0.2-1.3) H 12/07/23 03:58
AST 199 U/L (17-59) H 12/07/23 03:58
ALT 133 U/L (0-50) H 12/07/23 03:58
Alkaline Phosphatase 245 U/L (38-126) H 12/07/23 03:58
Most recent labs reviewed.
Micro Results:
12/02/23 15:56 Blood Culture - Preliminary
Blood/Venous No Growth in 4 days- Final report to follow
12/02/23 15:56 Blood Culture - Preliminary
Blood/Venous No Growth in 4 days- Final report to follow
12/02/23 23:07 Nasal Screen MRSA (PCR) - Final
Nose MRSA not detected - performed by PCR methodology.
12/03/23 10:24 Legionella Urinary Antigen - Final
Urine Negative for Legionella pneumophila Serogroup 1 antigen.
A negative result does not rule out the possiblity of
Legionella infection due to other serogroups or species of
Legionella. Clinical correlation is recommended.
Streptococcus pneumoniae Antigen (M - Final
Negative for Streptococcus pneumoniae antigen.
A negative result does not exclude infection with
Streptococcus pneumoniae. Clinical correlation is
recommended.
12/02/23 14:57 Influenza Types A & B (CLEO) - Final
Nasal Swab Negative for Influenza A & B, NAAT
Negative results must be combined with clinical observations
and patient history.
Nucleic Acid Amplification test (NAAT)performed on the
[employer] platform.
12/06/23 AXR: Moderate distention of the stomach, colon, and rectum with air and contrast material which is most likely secondary to an acute adynamic ileus.
12/06/23 CT chest wo IV contrast: There is groundglass pattern throughout both lungs, right much worse than left with focal areas of airspace disease predominantly on the right. The pattern is most suggestive of diffuse pneumonia. Moderately large
bilateral pleural effusions.
12/05/23 CXR: Stable extensive right lung pneumonia. Stable post operative changes.
12/02/23 CXR: Significant change in the appearance of the lungs, with new right upper and lower lung zone pneumonia and parapneumonic effusion.
--- NOTE | 2023-12-07 11:25 | CM ---
CM following re: discharge planning.
Reviewed pt's chart, met with pt and pt's spouse Honey at bedside.
Pt transferred to IMU level of care yesterday due to worsening respiratory failure. Pt currently requires 50 L HFNC with FIO2 85%, continue supportive care.
Pt is admitted to from [facility] and pt's spouse stated she does not want pt returns back to [facility] at discharge. Pt's spouse requested [facility] acute rehab in [facility]. Pt's spouse stated she and the pt live very close to
[facility] in [place]. Pt's spouse stated she understands the acute rehab has different criteria for admission and she asked to try.
CM will make a referral to [facility] acute rehab in [place] when clinically appropriate. Pt failed SNF level of care and it can be a reason to send a referral to higher level of care that is acute level of rehab.
Pt will need updated PT/OT/PM&R evaluations
D/C plan: [facility] acute rehab in [facility] when medically stable.
CM will follow with discharge plan updates as hospitalization progresses
[2023-12-07 11:45] LABS: Urine Albumin Negative (Neg - Trace); Urine Bilirubin Negative (Negative); Urine Character Clear (Clear); Urine Color Yellow; Urine Glucose Negative (Negative); Urine Ketone Negative (Negative); Urine Leukocyte Trace (Negative); Urine Nitrite Negative (Negative); Urine Occult Blood Negative (Negative); Urine Specific Gravity 1.015 (<1.030); Urine Urobilinogen Negative (Neg - 1+)
[2023-12-07 12:03] LABS: Urine Mucus Moderate; Urine Red Blood Cell 0-2 /HPF (0-2); Urine Squamous Cell 0-2 /LPF (Few)
--- NOTE | 2023-12-07 13:01 | W.PN.HOSP.TC ---
Today's Communication/Plan
-
Monitor vital signs and see plan
Wean high flow as tolerated
Continue with antibiotics
Bladder scan
Continue with Lasix
Monitor LFTs
Continue with steroids
Hold Amio
NG tube
Assessment / Plan
Assessment / Plan
Healthcare acquired pneumonia with recent hospitalization and been in a [facility] home
Acute hypoxic respiratory failure secondary to pneumonia
Acute on Chronic hyponatremia
Moderate protein caloric malnutrition
History of the hypopituitarism and hypothyroidism while T4 is little high and T3 is low.
Coronary artery disease s/p recent CABG
Sick sinus syndrome status post pacemaker
A-fib/A flutter, paroxysmal
Chronic lower extremity edema, mild while he is on amlodipine
Hypertension.
Dilatory dysfunction
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
Orthostatic hypotension
Hypokalemia
Hyponatremia
Adynamic ileus
LEATHA
Elevated LFTs
PLAN:
Managed with broad-spectrum antibiotic,
Was on Zosyn, due to elevated LFTs now switched to cefepime/Flagyl. ID following
completed VSE and placed on dysphagia program diet.
Cough medication
Tylenol as needed
Sputum� culture
Monitor vital sign
xray with possible pneumonia and parapneumonic effusion -repeat x-ray with pneumonia. CT chest 12/07 with groundglass pattern throughout both lungs consistent with diffuse pneumonia. Pulmonary following. Now on high flow.
COVID, flu, Legionella, strep neg
Monitor leukocytosis; now on methylprednisilone
�VSE 12-04 showed mild O and mild-mod P dysphagia
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
N.p.o. for now for ileus
GI following
NG tube today
hold amlodipine
now on IV lasix. Cards following. probnp elevated. per echo on last admission, stage 2 diastolic dysfunction. 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
holding PO metoprolol; cw IV lopressor
Amiodarone stopped by cardiology. Continue to monitor
Check bladder scan, UA
LFTs could likely be elevated secondary to Zosyn for congestion; continue to monitor
apply TEDS for orthostatic hypotension
Levothyroxine decreased to 150. Patient to get repeat TSH with free T4 in 4 to 6 weeks outpatient
PT OT and assess functional status
CODE STATUS full code
DVT prophylaxis is Xarelto; if needed to be off due to NPO for longer then consider hep gtt
General: Overweight, lethargic but , alert and oriented x3
HEENT: Anicteric, pink conjunctiva
Respiratory: CTA, mild rhonchi
Heart: S1, S2 regular, normal rate, no added sound.� Mild lower extremity edema, scar in the left upper chest
Gastrointestinal: Positive bowel sounds, soft, nontender, no guarding or rigidity
Neurological:� alert and oriented x3
Psychiatric: Normal mood, normal thought and judgment, normal affect
I spent a total of 54 minutes with the patient or on the floor. More than 50% of this time involved counseling and coordination of care.
Anticipated Discharge: > 48 hours
Subjective/Interval History
-
Date of Service: December 07, 2023
Now on high flow
Objective Data
-
Labs:
Laboratory Results
12/07/23
03:58
WBC 14.0 H
Hgb 8.8 L
Hct 26.8 L
Plt Count 340
Sodium 134 L
Potassium 4.1
Chloride 105
Carbon Dioxide 24
BUN 32 H
Creatinine 1.4 H
Glucose 159 H
Calcium 7.9 L
Total Bilirubin 1.7 H
AST 199 H
ALT 133 H
Alkaline Phosphatase 245 H
Vital Signs:
Vital Signs
Temp Pulse Resp BP Pulse Ox
97.7 F 75 22 121/63 89
12/07/23 07:50 12/07/23 11:15 12/07/23 11:15 12/07/23 11:15 12/07/23 11:15
I&O
12/06/23 12/07/23 12/08/23
06:59 06:59 06:59
Intake Total 1440 / 1440 440 / 440
Output Total 965 / 965 675 / 675 200 / 200
Balance 475 / 475 -235 / -235 -200 / -200
--- NOTE | 2023-12-07 13:24 | PTCARENOTE ---
Pt received in bed @ 0700. IMU orders. AAOx3, but drowsy and lethargic. Denying pain. SaO2 89-96% on High Flow NC 55L/100%. SaO2 observed @ 79% with assistance to chair. Pt slow to recover. Crackles 1/2 up, diminished and expiratory wheeze
throughout. No cough observed; unable to obtain sputum sample. A Fib/A Flutter on compliance monitor with occasional V pacing. Orthostatic VS taken with assistance to chair as documented. Pt stayed in chair 2 for hours before returning. +1 LE edema
with weak pedal pulse. Lasix 20mg IV administered per cardiology. Abdomen tender, distended. 16 [place] Sump placed in (L) nare to LIWS. Placement confirmed by auscultation. 100ml brown output. Pt voided lexx into urinal.
--- NOTE | 2023-12-07 16:36 | PTCARENOTE ---
Pt with worsening SaO2 on High Flow NC; 55L/100%; SaO2 83% while resting in bed. RR in 30s. Pt denying shortness of breath. NRB added for supplemental O2 to High Flow NC. SaO2 97%.
[2023-12-07] MEDS: XARELTO PO (18:02)
[2023-12-08] VITALS (17 sets, daily range): BP systolic 97–139; BP diastolic 58–86; PULSE 2–78; BMI 30.3
[2023-12-08] MEDS: SOLU-MEDROL PF 40 MG IV ×4 (04:07→22:05)
[2023-12-08 04:09] LABS: % Basophils 0.2 % (0-2); % Immature Granulocytes 0.7 % (0-0.5); % Lymphocytes 2.3 % (20.5-51.1); % Monocytes 3.8 % (1.7-9.3); Absolute Immature Granulocytes 0.1 10^3/uL (0-0.05); Absolute Lymphocytes 0.5 10^3/uL (1.2-3.4); Absolute Monocytes 0.8 10^3/uL (0.1-0.6); Absolute Neutrophils 18.6 10^3/uL (1.4-6.5); Hematocrit 28.1 % (39.0-52.0); Mean Corpuscular Hgb 28.4 pg (27.0-31.0); Mean Corpuscular Volume 88.6 fL (80.0-94.0); Mean Platelet Volume 9.3 fL (7.4-10.4); Nucleated Red Blood Cells % 0.7 % (-); Platelet Count 377 10^3/uL (130-400); Red Blood Cell Count 3.17 10^6/uL (4.70-6.10); Red Cell Dist. Width 16.1 % (11.5-14.5)
[2023-12-08 05:00] LABS: ALT (SGPT) 112 U/L (0-50); AST (SGOT) 107 U/L (17-59); Albumin 2.6 g/dl (3.5-5.0); Alkaline Phosphatase 254 U/L (38-126); Blood Urea Nitrogen 60 mg/dl (9-20); Calcium 8.6 mg/dl (8.4-10.2); Carbon Dioxide 24 mmol/L (22-30); Chloride 104 mmol/L (98-107); Estimated Creatinine Clearance 42 ml/min; Glucose 163 mg/dl (70-99); Potassium 3.5 mmol/L (3.5-5.1); Sodium 144 mmol/L (135-145); Total Protein 5.8 g/dl (6.3-8.2); eGFR 38.29
[2023-12-08 05:14] LABS: Hepatitis B Surface Antigen Negative (Negative)
[2023-12-08 05:18] LABS: Hepatitis B Core Ab, IgM Negative (Negative)
[2023-12-08 05:32] LABS: Hepatitis B Surface Antibody Negative; Hepatitis C Antibody Negative (Negative)
[2023-12-08 06:30] LABS: Hepatitis A IgM Antibody Negative (Negative)
[2023-12-08] MEDS: FLAGYL 500 MG 100 IV (06:35)
[2023-12-08] MEDS: STERILE WATER FOR INJECTION 10 ML IV ×3 (06:36→22:05)
[2023-12-08] MEDS: MAXIPIME 2000 MG IV (06:36)
[2023-12-08] MEDS: SYNTHROID PO (06:36)
[2023-12-08] MEDS: MIRALAX PO (08:28)
[2023-12-08] MEDS: COLACE PO ×2 (08:28→21:03)
[2023-12-08] MEDS: MUCINEX PO ×2 (08:28→21:03)
[2023-12-08] MEDS: LOW STRENGTH ASPIRIN PO (08:28)
[2023-12-08] MEDS: ZYLOPRIM PO (08:28)
[2023-12-08] MEDS: LASIX 20 MG IV (08:31)
--- NOTE | 2023-12-08 08:48 | W.PN.PUL3 ---
Today's Communication / Plan
-
BPAP/O2
Atbs
CS
Assessment
-
Assessment:
Mr Madhav Morales is a 78/M adm 12-02 from [employer] where he was rehabilitating after sustaining MSTEMI for which he received CABG at on 11-16-23 (also received R sided PPM for AVB), with 4 d h/o productive cough of greenish sputum, chills and
dyspnea. At ER, R sided infiltrate, started on vancomycin/cefepime, then changed to zosyn since 12-03. Increasing O2 requirements led to pulm consultation 12-06
Impression:
Bilateral pneumonia/pneumonitis R>>L
Bilateral dependent pleural effusions and compressive L base atelectasis
Resolving leukocytosis
Persistent moderate anemia
Transaminitis
Elevated BNP
Normal PCT 12-03
Dysphagia: mild oral and mild-moderate pharyngeal
Ileus
Conditions [employer]:
CAD s/p CABGx4 and PPM (AVB) early Nov 2023
PAFib on rivaroxaban, L sided PPM in past, on amiodarone
HTN
HLD
Gout
Hypothyroidism
Diastolic dysfunction
Moderate MR
Chronic hyponatremia
Pituitary tumor s/p resection
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
R sided blindness
TIA
Fatty liver
Cholecystectomy
Nonsmoker
Plan:
Transferred to IMU level of care due to worsening resp failure 12-06
Blood cxs, MRSA screening, COVID/flu/Leg/Strep negative
No sputum cx available yet, ordered, not yet collected
On atbs since adm (zosyn)
Noted ^AST, ALT, AP, TB, could be secondary to zosyn and/or HF
ID consulted: atbs changed to cefepime/metronidazole on 12-06
Consider resp viral panel if OK with ID
Consider updating TTE
Reportedly some orthostatic findings 12-07 re drop on SBP only but no tachycardia as tested by RN
Scheduled diuretics on hold for now
Cr trending up
Though no suspected amiodarone toxicity, given significant changes on chest CT will be rec to avoid amiodarone (now discontinued)
Chest CT s/c 12-06, reviewed, diffuse pneumonitis with scattered denser areas on R field and patchy pneumonitis areas at MANUEL, bilateral dependent moderate PF and compressive L base atelectasis
Suspect progressive changes by comparing to adm CXR
Initiated empiric systemic CS (MP 40 mg IV q6) on 12-06
Tried BPAP trial at 16/8 with fiO2 to keep POx>=92%, could not tolerate BPAP evening upon initiation at IMU
Tolerated HFNC at 1.0/50-55L, POx low 90s
Resumed BPAP 16/8, 15L in AM 12-08, tolerating well, POx 99%, continue BPAP, can takes breaks as tolerated
Dns prn
Update CXR portable 12-08, some improvement in R field pneumonitis, increased pulm vasc congestion at L field
Keep NPO x meds in meantime
Seen by Speech, VSE 12-04 showed mild O and mild-mod P dysphagia
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
Abd distension and mild pain
AXR with adynamic ileus
GI following, NGT placed (1.3L drainage in last 24 till AM 12-08)
Follow anemia, transfuse if Hgb <7
Continue rivaroxaban (AFib), TRT
Full code status
Prognosis remains guarded
D/w Mr and Mrs Morales at bedside 12-07
D/w Dr Byrd and Dr Melendrez 12-07
Diagnostic tests:
CXR 12-05-23, c/w 20 and 11-21-23. Baseline with no infiltrates. Fillms this adm with new onset R sided infiltrate and mild pulm vasc congestion on L. Last adm with new L sided PPM (already had L sided PPM)
Subjective Data
-
Date of Service:
Date of Service: December 08, 2023
Chief Complaint: Pulmonary Follow Up
Subjective:
Continued on HFNC through the day and overnight
Desat on HFNC this AM, changed to BPAP with good acceptance and improved POx
Review of Systems
General: Other (unable to talk much due to BPAP use)
Objective Data
Data Reviewed
Vital Signs / I&O / Oxygen:
Vital Signs
Temp Pulse Resp BP Pulse Ox
98.2 F 75 23 123/65 98
12/08/23 04:11 12/08/23 06:00 12/08/23 06:00 12/08/23 06:00 12/08/23 08:05
Intake and Output
12/07/23 12/08/23 12/09/23
06:59 06:59 06:59
Intake Total 440 / 440 450 / 450
Output Total 675 / 675 2475 / 2475
Balance -235 / -235 -2024 / -2024
SaO2 98
Nasal Cannula flow liters per 50
minute
Physical Exam
General: Respiratory Distress (improved)
HEENT: Normocephalic and Other (BPAP FFM)
Cardiovascular: Regular Rhythm, Peripheral Edema (CHERRY) and Calf Tenderness (n)
Respiratory: Wheeze (n), Crackles, Accessory Resp Muscle Use and Stridor (n)
GI: Distended and Non Tender
Neurology: Awake and No Motor Deficits
Skin: Dry
Labs/Micro/Reports
Lab Data
12/08/23 04:01
12/08/23 04:01
Microbiology
12/02/23 15:56 Blood/Venous Blood Culture - Final
No Growth - Final Report
12/02/23 15:56 Blood/Venous Blood Culture - Final
No Growth - Final Report
--- NOTE | 2023-12-08 10:23 | W.PN.CD ---
Today's Communication / Plan
-
-
cont w daily po lasix and rate control of roman w metoprolol
cont Rx for severe Pna
we will reevaluate intermittently - please call back if needed urgently
Impression / Plan
-
Impression: 78M with recent NSTEMI -> CABG (11/16) & right sided PPM. He initially felt better, but developed dyspnea and resp fatigue, needed Tx to IMU
PMH: paroxysmal atrial flutter, SSS / AV block s/p PPM, HTN/HLD
Plan
Dyspnea
-mostly right-sided pneumonia
-Discontinued amiodarone.
-cont w daily po lasix 40
.
CAD s/p recent CABG
preserved LVEF
recurrent afib - see below
Aflutter, paroxysmal
-Currently in A-fib. Continue with rate control and anticoagulation . Patient currently on Xarelto
-Patient with suspected pneumonia but with pulmonary findings and tenuous respiratory status we discontinued amiodarone and continue with rate control right now.
-CHADS2-Vasc = 4 (HTN, Age x2, Vascular Disease). Xarelto
-no short term plan to DCCV; but eventually will -plan for DCCV
Sick sinus syndrome / AV block
-R sided PPM set to VVI 40 bpm. Occluded venous system on the left shoulder with attempted venoplasty with only limited success.
-New right sided conduction system pacemaker implanted on 11/20/23.
HTN: Stable/controlled on current medication regimen.
Mixed hyperlipidemia -elevated LFT - hold statin statin amiodarone also held as noted above
Prior pituitary surgery
Legally blind
Subjective: Patient now on high flow O2 in ICU currently comfortable at rest no chest pain.
DATA:
Intraoperative KEVIN, 11/16/2023:
Overall LVEF is approximately 60% with no RWMA.
Moderate mitral regurgitation.
Mild tricuspid regurgitation.
Cardiac Catheterization, 11/10/2023:
Left Main: Normal
LAD: Tandem 50% ostial and 40% proximal LAD stenoses.� There is 30% mid LAD stenosis.� The major diagonal branch has 60% proximal to mid stenosis.
Circumflex: 90% ostial circumflex stenosis.� There is 40% mid circumflex stenosis.� OM1 is very large with 70% mid stenosis.� OM 2 is a small to medium sized bifurcating vessel with 60% ostial stenosis.
RCA: 50% mid RCA stenosis.� The RCA has otherwise mild diffuse disease.� The acute marginal branch supplies the distal PDA territory.� There is no clearly visible PDA and the posterolateral branches are small.
.
Physical Exam
Vital Signs/Labs
Vital Signs
Temp Pulse Resp BP Pulse Ox
98.2 F 75 23 123/65 98
12/08/23 04:11 12/08/23 06:00 12/08/23 06:00 12/08/23 06:00 12/08/23 08:05
12/07/23 12/08/23 12/09/23
06:59 06:59 06:59
Actual Weight 222 lb 14.197 oz 216 lb 14.958 oz
12/08/23 04:01
12/08/23 04:01
Magnesium 2.3 mg/dl (1.6-2.3) 12/02/23 14:57
Free T4 Cancelled 12/02/23 14:58
12/02/23 12/03/23
14:57 09:22
Cty-G-Gbgygtmmrpq Pept 5020 [id number]
Physical Exam
Cardiovascular: Systolic murmur absent and Rhythm/rate is irregular
Respiratory: Labored respirations and Other (decreased breath sound)
GI: Soft and Distention absent
Neuro/Psych: Alert
Data Reviewed
-
Date of Service: December 08, 2023
Medical Decision Making: Reviewed Test Results
EKG: Tracing Personally Visualized and interpreted
Labs: Labs Reviewed by me
--- NOTE | 2023-12-08 11:02 | W.PN.ID1 ---
Date of Service
Date of Service: December 08, 2023
Today's Communication
Broaden abx's to meropenem.
Assessment / Plan
# Aspiration pneumonia. Vocal cord dysfunction post CABG.
# Acute on chronic heart failure
# Acute hypoxemic respiratory failure due to PNA and heart failure/moderate bilateral pleural effusions. Increasing 02 requirement
# Acute elevated LFTs - ?zosyn vs congestive hepatitis
# Leukocytosis - on steroid
#LEATHA
# Ileus
# s/p recent CABG x 4 (11/16/2023)
Plan:
- COVID/Flu neg
- blood cx neg
- Repeat CXR: progression of extensive R>L infiltrate
-Aspiration precaution
- Change cefepime/metronidazole (d6 abx) to meropenem, dose renally adjusted.
#Additional Past Medical History:
Hypertension
Hyperlipidemia
Hypothyroidism
Hx cardiac arrest s/p left chest PPM
Right chest PPM implant 11/20/23
CAD s/p CABG x 4 (11/16/23)
HFpEF
Pituitary tumor (benign) status post resection
TIA
Chronic LE edema
cholecystectomy
Chief Complaint
-: Pneumonia
Subjective / Review of Systems
On hi-flow and bipap.
Vital Signs / Physical Exam
Vital Signs
Vital Signs
Temp Pulse Resp BP Pulse Ox
98.2 F 75 23 123/65 98
12/08/23 04:11 12/08/23 06:00 12/08/23 06:00 12/08/23 06:00 12/08/23 08:05
Physical Exam
Constitutional: Acutely Ill
Cardiovascular: Irregular Rate and S1/S2
Pulmonary: Clear (anterior chest)
Gastrointestinal: Soft, Non Tender and Non Distended
Genito-Urinary: Negative Jade
Extremities: Edema
Neurological: Other (Drowsy)
Objective Data
Lab Data
Lab Results
12/08/23 04:01
12/08/23 04:01
Estimated Creat Clear 42 ml/min 12/08/23 04:01
Total Bilirubin 2.0 mg/dl (0.2-1.3) H 12/08/23 04:01
AST 107 U/L (17-59) H 12/08/23 04:01
ALT 112 U/L (0-50) H 12/08/23 04:01
Alkaline Phosphatase 254 U/L (38-126) H 12/08/23 04:01
Most recent labs reviewed.
Micro Results:
12/02/23 15:56 Blood Culture - Final
Blood/Venous No Growth - Final Report
12/02/23 15:56 Blood Culture - Final
Blood/Venous No Growth - Final Report
12/02/23 23:07 Nasal Screen MRSA (PCR) - Final
Nose MRSA not detected - performed by PCR methodology.
12/03/23 10:24 Legionella Urinary Antigen - Final
Urine Negative for Legionella pneumophila Serogroup 1 antigen.
A negative result does not rule out the possiblity of
Legionella infection due to other serogroups or species of
Legionella. Clinical correlation is recommended.
Streptococcus pneumoniae Antigen (M - Final
Negative for Streptococcus pneumoniae antigen.
A negative result does not exclude infection with
Streptococcus pneumoniae. Clinical correlation is
recommended.
12/02/23 14:57 Influenza Types A & B (CLEO) - Final
Nasal Swab Negative for Influenza A & B, NAAT
Negative results must be combined with clinical observations
and patient history.
Nucleic Acid Amplification test (NAAT)performed on the
[employer] platform.
11/18/23 CXR: Severe bilateral pneumonia with progression in the left lung compared to the chest radiograph from 12/05/2023.
12/08/23 ABD US: Surgically absent gallbladder. No bile duct dilatation.
12/06/23 AXR: Moderate distention of the stomach, colon, and rectum with air and contrast material which is most likely secondary to an acute adynamic ileus.
12/06/23 CT chest wo IV contrast: There is groundglass pattern throughout both lungs, right much worse than left with focal areas of airspace disease predominantly on the right. The pattern is most suggestive of diffuse pneumonia. Moderately large
bilateral pleural effusions.
12/05/23 CXR: Stable extensive right lung pneumonia. Stable post operative changes.
12/02/23 CXR: Significant change in the appearance of the lungs, with new right upper and lower lung zone pneumonia and parapneumonic effusion.
--- NOTE | 2023-12-08 12:30 | W.PN.GI.CBS2 ---
Addendum entered and electronically signed by Viral Armenta MD 12/08/23 19:44:
I saw and examined the patient.
The PA's note was reviewed and I agree with the note.
Comment:
Currently has NG tube for ileus, x-ray showing some improvement. LFT elevated in mixed pattern, US shows post cholecystectomy and no el dil. Agree with continued NG tube, follow LFT. Daily abdo xray, electrolyte replenishment and opioid
avoidance.
Original Note:
Today's Communication / Plan
-
continue NG tube decompression
trend LFTs
Assessment / Plan
-
78 year old male who had a recent NSTEMI, CABGx4 and pacemaker, developed cough, SOB, weakness while at [facility] and was admitted to for healthcare-acquired pneumonia on 12/02/2023. GI is consulted to evaluate patient due to abdominal x-ray
showing air distension of the stomach, colon and rectum, likely due to acute adynamic ileus. Pt does c/o nausea intermittently, and reports one episode of vomiting 'black stuff' previously. No abdominal pain.
Examination-abdomen was soft.� Nontender.� Currently on NG tube decompression. X-ray shows improvement in the gastric dilatation.
Elevated LFTs: AST and ALT trended downwards slightly, slight increase in alk phos and bilirubin. US imaging of liver is normal, hepatitis panel negative.
IMPRESSION:
--Adynamic ileus
-- Hypoxic respiratory failure with pneumonia
-- Acute on chronic heart failure
-- Recent CABG
-- Elevated liver test-possible sepsis versus congestive hepatopathy vs drug-induced (Zosyn was switched by ID)
PLAN:
--N.p.o.
--Continue NG tube decompression
--Avoid opioids
--Correction of electrolytes as per medical team
--continue to trend LFTs
Other medical problems managed as per Pulmonology, ID and Hospitalist.
Subjective
Subjective
Date of Service: December 08, 2023
No nausea or abdominal pain. NG tube in place.
Objective
Data Reviewed
Laboratory Data:
Laboratory Results
12/08/23 04:01
12/08/23 04:01
Laboratory Results
Magnesium 2.3 mg/dl (1.6-2.3) 12/02/23 14:57
Total Bilirubin 2.0 mg/dl (0.2-1.3) H 12/08/23 04:01
AST 107 U/L (17-59) H 12/08/23 04:01
ALT 112 U/L (0-50) H 12/08/23 04:01
Alkaline Phosphatase 254 U/L (38-126) H 12/08/23 04:01
Vital Signs and I&O:
Vital Signs
Temp Pulse Resp BP Pulse Ox
97.5 F 64 24 139/86 98
12/08/23 08:07 12/08/23 12:00 12/08/23 12:00 12/08/23 12:00 12/08/23 12:00
I&O
12/07/23 12/08/23 12/09/23
06:59 06:59 06:59
Intake Total 440 / 440 450 / 450 100 / 100
Output Total 675 / 675 2475 / 2475 225 / 225
Balance -235 / -235 -5 / -2024 -125 / -125
Physical Exam
Physical Exam
GI: Soft, Distended, Non Tender and Other (hypoactive bowel sounds)
Abdominal x-ray, 12/08/23:
IMPRESSION:
1. Nonobstructive bowel gas pattern.
2. Improved gastric dilatation compared to the abdominal radiograph from 12/06/2023.
No disproportionally dilated loops of small bowel or air-fluid levels. Contrast material in the colon. Improved dilatation of the stomach. Enteric tube with the tip in the distal stomach. No intraperitoneal free air. No abnormal soft tissue
calcifications.
Chronic degenerative changes of the spine.
Abdominal US, 12/08/23:
IMPRESSION:
Surgically absent gallbladder. No bile duct dilatation.
LIVER: The liver measures up to 14.0 cm in length. The hepatic echotexture is homogeneous without focal lesion.
[2023-12-08] MEDS: MERREM 500 MG IV ×2 (14:50→22:05)
[2023-12-08] MEDS: XARELTO PO (17:57)
--- NOTE | 2023-12-08 18:12 | W.PN.HOSP.TC ---
Today's Communication/Plan
-
continue current Tx
Await resolution of ileus to start on feeds
Assessment / Plan
Assessment / Plan
Healthcare acquired pneumonia with recent hospitalization and been in a [facility] home
Acute hypoxic respiratory failure secondary to pneumonia
Acute on Chronic hyponatremia
resolved Na 144
Moderate protein caloric malnutrition
History of the hypopituitarism and hypothyroidism while T4 is little high and T3 is low.
Coronary artery disease s/p recent CABG
Sick sinus syndrome status post pacemaker
A-fib/A flutter, paroxysmal
Chronic lower extremity edema, mild while he is on amlodipine
Hypertension.
Dilatory dysfunction
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
Orthostatic hypotension
Hypokalemia
resolved 3.5
Adynamic ileus
NG tube in place
LEATHA
Elevated LFTs
PLAN:
Managed with broad-spectrum antibiotic,
Was on Zosyn, due to elevated LFTs now switched to cefepime/Flagyl. ID following
remains NPO
Cough medication
Tylenol as needed
Sputum� culture
Monitor vital sign
xray with possible pneumonia and parapneumonic effusion -repeat x-ray with pneumonia. CT chest 12/07 with groundglass pattern throughout both lungs consistent with diffuse pneumonia. Pulmonary following. Now on high flow.
COVID, flu, Legionella, strep neg
Monitor leukocytosis; now on methylprednisilone
�VSE 12-04 showed mild O and mild-mod P dysphagia
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
N.p.o. for now for ileus
GI following
NG tube today
hold amlodipine
now on IV lasix. Cards following. probnp elevated. per echo on last admission, stage 2 diastolic dysfunction. 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
holding PO metoprolol; cw IV lopressor
Amiodarone stopped by cardiology. Continue to monitor
Check bladder scan, UA
LFTs could likely be elevated secondary to Zosyn for congestion; continue to monitor
apply TEDS for orthostatic hypotension
Levothyroxine decreased to 150. Patient to get repeat TSH with free T4 in 4 to 6 weeks outpatient
PT OT and assess functional status
CODE STATUS full code
DVT prophylaxis is Xarelto; if needed to be off due to NPO for longer then consider hep gtt
complex situation, reviewed with nursing
I spent a total of 45 minutes with the patient or on the floor. More than 50% of this time involved counseling and coordination of care.
Anticipated Discharge: > 48 hours
Subjective/Interval History
-
Date of Service: December 08, 2023
not passing flatus
Objective Data
-
Vital Signs:
Vital Signs
Temp Pulse Resp BP Pulse Ox
96.4 F L 67 21 111/71 92
12/08/23 15:49 12/08/23 16:00 12/08/23 16:00 12/08/23 16:00 12/08/23 17:34
I&O
12/07/23 12/08/23 12/09/23
06:59 06:59 06:59
Intake Total 440 / 440 450 / 450 160 / 160
Output Total 675 / 675 2475 / 2475 1650 / 1650
Balance -235 / -235 -2024 / -2024 -1490 / -1490
Review of Systems
-
History Source: Patient and Coordinated Provider
Constitutional: Denies Fever (most recently hypothermic 96.4)
Respiratory: Reports Trouble Breathing
Cardiac: Denies Chest Pain
Abdomen/GI: Reports Abdominal Pain
Physical Exam
-
General: Well Developed, Well Nourished and No Apparent Distress
HEENT: Normocephalic, Atraumatic and Moist Mucous Membranes
Respiratory: Other (coarse BS); Negative Wheezes
Cardiac: Regular Rhythm and S1/S2
GI: Soft, Nontender and Distended; Negative Normal Bowel Sounds (absent BS)
Musculoskeletal: No Clubbing, No Cyanosis and No Edema
Neuro: Awake, Alert and Oriented
--- NOTE | 2023-12-08 21:44 | PTCARENOTE ---
Received pt resting in bed on bipap 28/06 with 15L. Pt. with dysphonia. Does nod appropriately and tries to mouth words under bipap mask. TERRAZAS but weak. Drowsy at times, encouraged to rest. V paced/afib on tele. LEs +2 edema and LUE +2-3 edema. Weak
pulses. TEDs on B/L. Temp 96.4 rectal- warm blankets placed and will monitor. Tolerating bipap, spo2 90-97%. Lungs diminished with crackles bibasilar L > R. Shallow breaths. Abdomen round, soft, nontender. Hypoactive bowel sounds throughout. NG tube
to LIWS with brown output. Flushed per orders. No BM. #21 condom cath placed. L and R CW incisions with steri strips. Sternal incision TIRE FABRICATOR, well approximated and scabbed in areas. R FA #22 and new #22 R wrist placed by VAT. Turning q2. Call coats in
reach
[2023-12-09] VITALS (15 sets, daily range): BP systolic 88–119; BP diastolic 52–69; PULSE 2–65; BMI 29.6
[2023-12-09] MEDS: SOLU-MEDROL PF 40 MG IV ×4 (03:40→21:23)
[2023-12-09 03:51] LABS: % Basophils 0.1 % (0-2); % Immature Granulocytes 0.7 % (0-0.5); % Lymphocytes 1.9 % (20.5-51.1); % Monocytes 3.8 % (1.7-9.3); % Neutrophils 93.5 % (42.2-75.2); Absolute Immature Granulocytes 0.1 10^3/uL (0-0.05); Absolute Lymphocytes 0.3 10^3/uL (1.2-3.4); Absolute Monocytes 0.7 10^3/uL (0.1-0.6); Absolute Neutrophils 16.8 10^3/uL (1.4-6.5); Hemoglobin 9.2 g/dL (13.0-18.0); Mean Corp Hgb Conc. 32.9 g/dL (33.0-37.0); Mean Corpuscular Hgb 29.6 pg (27.0-31.0); Mean Platelet Volume 9.8 fL (7.4-10.4); Nucleated Red Blood Cells % 0.9 % (-); Platelet Count 333 10^3/uL (130-400); Red Blood Cell Count 3.11 10^6/uL (4.70-6.10); Red Cell Dist. Width 16.9 % (11.5-14.5); White Blood Cell Count 17.9 10^3/uL (4.8-10.8)
[2023-12-09 05:39] LABS: ALT (SGPT) 88 U/L (0-50); AST (SGOT) 60 U/L (17-59); Albumin 2.6 g/dl (3.5-5.0); Alkaline Phosphatase 220 U/L (38-126); Blood Urea Nitrogen 80 mg/dl (9-20); Calcium 8.7 mg/dl (8.4-10.2); Carbon Dioxide 36 mmol/L (22-30); Chloride 103 mmol/L (98-107); Estimated Creatinine Clearance 39 ml/min; Glucose 177 mg/dl (70-99); Potassium 2.9 mmol/L (3.5-5.1); Sodium 150 mmol/L (135-145); Total Bilirubin 1.6 mg/dl (0.2-1.3); Total Protein 5.6 g/dl (6.3-8.2); eGFR 35.88
[2023-12-09] MEDS: STERILE WATER FOR INJECTION 10 ML IV ×3 (05:42→21:20)
[2023-12-09] MEDS: MERREM 500 MG IV ×3 (05:42→21:20)
[2023-12-09] MEDS: SYNTHROID PO (05:43)
--- NOTE | 2023-12-09 06:02 | PTCARENOTE ---
Pt. remains drowsy but easily arousable. Tries to make needs known but has difficulty communicating between bipap mask and dysphonia. Rested calmly on bipap 16/8 15L throughout the night. Spo2 90-98%. Very weak, repositioned q2 and PRN. NG tube with
600ml brown output overnight. AM labs reviewed with [employer]INE- orders received.
--- NOTE | 2023-12-09 07:09 | W.PN.ID1 ---
Date of Service
Date of Service: December 09, 2023
Today's Communication
Continue meropenem for today.
Assessment / Plan
# Aspiration pneumonia. Hx of vocal cord dysfunction post CABG.
# Acute on chronic heart failure
# Acute hypoxemic respiratory failure due to PNA and heart failure/moderate bilateral pleural effusions. Increasing 02 requirement
- currently on BiPAP
# Acute elevated LFTs - ?zosyn vs congestive hepatitis
# Leukocytosis - on steroid
#LEATHA
# Ileus
- NG to suction in place
# s/p recent CABG x 4 (11/16/2023)
Plan:
- COVID/Flu neg
- blood cx neg
- Repeat CXR: progression of extensive R>L infiltrate
- Aspiration precaution
- Continue meropenem; follow CrCl to guide dosing.
#Additional Past Medical History:
Hypertension
Hyperlipidemia
Hypothyroidism
Hx cardiac arrest s/p left chest PPM
Right chest PPM implant 11/20/23
CAD s/p CABG x 4 (11/16/23)
HFpEF
Pituitary tumor (benign) status post resection
TIA
Chronic LE edema
cholecystectomy
����������������������������������������������������������
Chief Complaint
-: Leukocytosis and Pneumonia
Subjective / Review of Systems
Patient seen and examined. Currently on BiPAP. Reports breathing comfortable. Denies pain.
Vital Signs / Physical Exam
Vital Signs
Vital Signs
Temp Pulse Resp BP Pulse Ox
96.9 F L 64 19 100/52 97
12/09/23 03:47 12/09/23 06:00 12/09/23 06:00 12/09/23 06:00 12/09/23 06:00
Physical Exam
Constitutional: No Acute Distress, Comfortable and Non-toxic
Head: Other (BiPAP in place.)
Eyes: Sclera Anicteric
Cardiovascular: Regular Rate and S1/S2; Negative S3/S4
Pulmonary: Coarse; Negative Wheezes or Rales
Gastrointestinal: Soft, Non Distended, Decreased Bowel Sounds, No Rebound and No Guarding
Genito-Urinary: Jade and Clear Urine
Extremities: Edema (2+ bilateral lower extremities.); Negative Erythema
Skin: Warm and Dry; Negative Rash or Jaundice
Neurological: Awake and Alert
Psychological: Calm
Objective Data
Lab Data
Lab Results
12/09/23 03:39
12/09/23 04:37
Estimated Creat Clear 39 ml/min 12/09/23 04:37
Total Bilirubin 1.6 mg/dl (0.2-1.3) H 12/09/23 04:37
AST 60 U/L (17-59) H 12/09/23 04:37
ALT 88 U/L (0-50) H 12/09/23 04:37
Alkaline Phosphatase 220 U/L (38-126) H 12/09/23 04:37
Most recent labs reviewed.
Micro Results:
12/02/23 15:56 Blood Culture - Final
Blood/Venous No Growth - Final Report
12/02/23 15:56 Blood Culture - Final
Blood/Venous No Growth - Final Report
12/02/23 23:07 Nasal Screen MRSA (PCR) - Final
Nose MRSA not detected - performed by PCR methodology.
12/03/23 10:24 Legionella Urinary Antigen - Final
Urine Negative for Legionella pneumophila Serogroup 1 antigen.
A negative result does not rule out the possiblity of
Legionella infection due to other serogroups or species of
Legionella. Clinical correlation is recommended.
Streptococcus pneumoniae Antigen (M - Final
Negative for Streptococcus pneumoniae antigen.
A negative result does not exclude infection with
Streptococcus pneumoniae. Clinical correlation is
recommended.
12/02/23 14:57 Influenza Types A & B (CLEO) - Final
Nasal Swab Negative for Influenza A & B, NAAT
Negative results must be combined with clinical observations
and patient history.
Nucleic Acid Amplification test (NAAT)performed on the
[employer] platform.
11/18/23 CXR: Severe bilateral pneumonia with progression in the left lung compared to the chest radiograph from 12/05/2023.
12/08/23 ABD US: Surgically absent gallbladder. No bile duct dilatation.
12/06/23 AXR: Moderate distention of the stomach, colon, and rectum with air and contrast material which is most likely secondary to an acute adynamic ileus.
12/06/23 CT chest wo IV contrast: There is groundglass pattern throughout both lungs, right much worse than left with focal areas of airspace disease predominantly on the right. The pattern is most suggestive of diffuse pneumonia. Moderately large
bilateral pleural effusions.
12/05/23 CXR: Stable extensive right lung pneumonia. Stable post operative changes.
12/02/23 CXR: Significant change in the appearance of the lungs, with new right upper and lower lung zone pneumonia and parapneumonic effusion.
[2023-12-09] MEDS: KCL 270 MEQ IV ×2 (07:14→09:09)
[2023-12-09] MEDS: MUCINEX PO ×2 (07:53→20:26)
[2023-12-09] MEDS: LOW STRENGTH ASPIRIN PO (07:53)
[2023-12-09] MEDS: LASIX 20 MG IV (07:53)
[2023-12-09] MEDS: ZYLOPRIM PO (07:53)
[2023-12-09] MEDS: COLACE PO ×2 (07:53→20:25)
[2023-12-09] MEDS: MIRALAX PO (07:53)
--- NOTE | 2023-12-09 08:36 | PTCARENOTE ---
received din AM, oriented, follws commands, nods in response appropriately. assessment as documented, off bipap in AM to HFNC [id number] sats 99% @ present. cont NPO with NG tube to low suction with coffee ground output. cont Q2 turning and
repositioning protocol.
--- NOTE | 2023-12-09 10:03 | W.PN.PUL3 ---
Today's Communication / Plan
-
HFNC - wean o2 and flow rate as tolerated
Atbs per ID
CS with Solumedrol 40mg IV q6hr
Diuresis
Need to fig out AC --> xarelto on hold. Would recommend starting heparin gtt in meantime until we can restart NOAC
Assessment
-
Assessment:
Mr Madhav Morales is a 78/M adm 12-02 from [facility] where he was rehabilitating after sustaining MSTEMI for which he received CABG at on 11-16-23 (also received R sided PPM for AVB), with 4 d h/o productive cough of greenish sputum, chills and
dyspnea. At ER, R sided infiltrate, started on vancomycin/cefepime, then changed to zosyn since 12-03. Increasing O2 requirements led to pulm consultation 12-06
Impression:
Bilateral pneumonia/pneumonitis R>>L
Bilateral dependent pleural effusions and compressive L base atelectasis
Leukocytosis
Persistent moderate anemia
Transaminitis
Elevated BNP
Normal PCT 12-03
Dysphagia: mild oral and mild-moderate pharyngeal
Ileus
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
CAD s/p CABGx4 and PPM (AVB) early Nov 2023
PAFib on rivaroxaban, L sided PPM in past, on amiodarone
HTN
HLD
Gout
Hypothyroidism
Diastolic dysfunction
Moderate MR
Chronic hyponatremia
Pituitary tumor s/p resection
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
R sided blindness
TIA
Fatty liver
Cholecystectomy
Nonsmoker
Plan:
Transferred to IMU level of care due to worsening resp failure 12-06
Blood cxs, MRSA screening, COVID/flu/Leg/Strep negative
No sputum cx available yet, ordered, not yet collected
On atbs since adm (zosyn)
Noted ^AST, ALT, AP, TB, could be secondary to zosyn and/or HF
ID consulted: atbs changed to cefepime/metronidazole on 12-06 --> then changed to meropenem on 12/08
Consider resp viral panel if OK with ID
Consider updating TTE
Reportedly some orthostatic findings 12-07 re drop on SBP only but no tachycardia as tested by RN
Scheduled diuretics were on hold however now back on 20 mg IV Lasix since 12/07
Cr trending up
Though no suspected amiodarone toxicity, given significant changes on chest CT will be rec to avoid amiodarone (now discontinued)
Chest CT s/c 12-06, reviewed, diffuse pneumonitis with scattered denser areas on R field and patchy pneumonitis areas at MANUEL, bilateral dependent moderate PF and compressive L base atelectasis
Suspect progressive changes by comparing to adm CXR
Initiated empiric systemic CS (MP 40 mg IV q6) on 12-06
Tried BPAP trial at 16/8 with fiO2 to keep POx>=92%, could not tolerate BPAP evening upon initiation at IMU
Tolerated HFNC at 1.0/50-55L, POx low 90s
Resumed BPAP 16/8, 15L in AM 12-08, tolerated well, POx 99% --> currently on high flow nasal cannula FiO2 90%
Dns prn
Update CXR portable 12-08, some improvement in R field pneumonitis, increased pulm vasc congestion at L field
Keep NPO x meds in meantime
Seen by Speech, VSE 12-04 showed mild O and mild-mod P dysphagia
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
Abd distension and mild pain
AXR with adynamic ileus
GI following, NGT placed --> monitor output
Follow anemia, transfuse if Hgb <7
Continue AC --> may need heparin gtt since he is not getting his NOAC
Full code status
Prognosis remains guarded
D/w Mr and Mrs Morales at bedside 12-07
D/w Dr Byrd and Dr Melendrez 12-07
Pulmonary service will continue to follow along.
Diagnostic tests:
Chest/Abd XR 12-09-2023:
Relatively stable appearance of the chest. Extensive diffuse bilateral interstitial and airspace opacity. Nasogastric tube extends into the stomach. No pneumothorax.
Examination of the abdomen demonstrates opaque contrast material within the colon, without significant change or distal propagation compared to the prior examination. As before, contrast is predominantly within the ascending colon, transverse colon,
and proximal to mid descending colon. This has not extended any further distally. However, no colonic dilatation to suggest obstruction.
Relative paucity of small bowel gas.
No suspicious air-fluid levels.
No free air.
CXR 12-05-23, c/w and 11-21-23. Baseline with no infiltrates. Fillms this adm with new onset R sided infiltrate and mild pulm vasc congestion on L. Last adm with new L sided PPM (already had L sided PPM)
Subjective Data
-
Date of Service:
Date of Service: December 09, 2023
Chief Complaint: Pulmonary Follow Up
Subjective:
Patient seen today at bedside. He was not speaking to me. BP 101/61, heart rate 70 and RR: 26. No acute events reported from overnight via the nursing staff. He is on high flow nasal cannula at 90% FiO2, saturating 97%.
Review of Systems
General: Other (Unable to obtain as patient not verbalizing at this time)
Objective Data
Data Reviewed
Vital Signs / I&O / Oxygen:
Vital Signs
Temp Pulse Resp BP Pulse Ox
96.8 F L 67 21 96/69 97
12/09/23 11:23 12/09/23 14:00 12/09/23 14:00 12/09/23 12:00 12/09/23 14:00
Intake and Output
12/08/23 12/09/23 12/10/23
06:59 06:59 06:59
Intake Total 450 / 450 160 / 160
Output Total 2475 / 2475 2875 / 2875
Balance -2024 / -2024 -2714 /
SaO2 97
Nasal Cannula flow liters per 55
minute
Physical Exam
General: Respiratory Distress (improved) and Sweats (n)
HEENT: Normocephalic, Anicteric and Other (BPAP FFM)
Cardiovascular: Irregular Rhythm (Irregularly irregular), Peripheral Edema (CHERRY) and Calf Tenderness (n)
Respiratory: Wheeze (n), Crackles (bibasilar), Rhonchi (neg), Accessory Resp Muscle Use (mild) and Stridor (n)
GI: Soft, Non Distended, Non Tender and Normal Bowel Sounds
Neurology: Awake, Alert and No Motor Deficits
Skin: Warm and Dry
Labs/Micro/Reports
Lab Data
12/09/23 03:39
12/09/23 04:37
Microbiology
12/02/23 15:56 Blood/Venous Blood Culture - Final
No Growth - Final Report
12/02/23 15:56 Blood/Venous Blood Culture - Final
No Growth - Final Report
--- NOTE | 2023-12-09 13:47 | W.PN.GI.CBS2 ---
Today's Communication / Plan
-
.
Assessment / Plan
-
78 year old male who had a recent NSTEMI, CABGx4 and pacemaker, developed cough, SOB, weakness while at [facility] and was admitted to for healthcare-acquired pneumonia on 12/02/2023. GI is consulted to evaluate patient due to abdominal x-ray
showing air distension of the stomach, colon and rectum, likely due to acute adynamic ileus. Pt does c/o nausea intermittently, and reports one episode of vomiting 'black stuff' previously. No abdominal pain.
NG tube remains. Electrolyte derangement persists with Na 150 and K 2.9. Will need correction. Will re-eval for possible d/c of NG tube tomorrow.
Subjective
Subjective
Date of Service: December 09, 2023
worsening of electrolyte derangement noted
Objective
Data Reviewed
Laboratory Data:
Laboratory Results
12/09/23 03:39
12/09/23 04:37
Laboratory Results
Magnesium 2.3 mg/dl (1.6-2.3) 12/02/23 14:57
Total Bilirubin 1.6 mg/dl (0.2-1.3) H 12/09/23 04:37
AST 60 U/L (17-59) H 12/09/23 04:37
ALT 88 U/L (0-50) H 12/09/23 04:37
Alkaline Phosphatase 220 U/L (38-126) H 12/09/23 04:37
Vital Signs and I&O:
Vital Signs
Temp Pulse Resp BP Pulse Ox
96.8 F L 65 30 93/55 97
12/09/23 11:23 12/09/23 09:00 12/09/23 09:00 12/09/23 08:00 12/09/23 10:51
I&O
12/08/23 12/09/23 12/10/23
06:59 06:59 06:59
Intake Total 450 / 450 160 / 160
Output Total 6545 / 6335 2875 / 2965
Balance -2024 / -2024 -2714 /
[2023-12-09] MEDS: XARELTO PO (18:20)
--- NOTE | 2023-12-09 18:59 | W.PN.HOSP.TC ---
Today's Communication/Plan
-
stop Lasix
start IVF
follow renal fxn
Pt not receiving Xarelto, will start Heparin drip, discussed with pharmacy
Assessment / Plan
Assessment / Plan
Healthcare acquired pneumonia with recent hospitalization and been in a care home home
WBC 20k-->17.9k
Acute hypoxic respiratory failure secondary to pneumonia
Acute on Chronic hyponatremia
resolved Na 144, now hypernatremic 150
Moderate protein caloric malnutrition
History of the hypopituitarism and hypothyroidism while T4 is little high and T3 is low.
Coronary artery disease s/p recent CABG
Sick sinus syndrome status post pacemaker
A-fib/A flutter, paroxysmal
currently in A. Fib. Start Heparin, no bolus
Chronic lower extremity edema, mild while he is on amlodipine
Hypertension.
Dilatory dysfunction
Acute on chronic HFpEF
Orthostatic hypotension
Hypokalemia
recurred K 2.9
Adynamic ileus
NG tube in place with large amount of NG aspiration
LEATHA
with rising BUN/Creat and Na with decrease in K, will need to hold Lasix and start cautious IVF replacement with D51/4NS with [address] Meq KCL
[address] with Dr[address] Hurtado
Elevated LFTs
CXR extensive diffuse bilateral interstitial and airspace opacity
Abd opaque contrast material within colon, has not progressed, no colonic obstruction noted
12/06 CT scan: There is groundglass pattern throughout both lungs, right much worse than left with focal areas of airspace disease predominantly on the right. The pattern is most suggestive of diffuse pneumonia.
PLAN:
Managed with broad-spectrum antibiotic,
Was on Zosyn, due to elevated LFTs now switched to cefepime/Flagyl. ID following, now on Meropenem 500 mg IV q8h
remains NPO
Cough medication
Tylenol as needed
Sputum� culture
Monitor vital sign
xray with possible pneumonia and parapneumonic effusion -repeat x-ray with pneumonia. CT chest 12/07 with groundglass pattern throughout both lungs consistent with diffuse pneumonia. Pulmonary following. Now on high flow.
COVID, flu, Legionella, strep neg
Monitor leukocytosis; now on methylprednisilone
�VSE 12-04 showed mild O and mild-mod P dysphagia
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
N.p.o. for now for ileus
GI following
NG tube today
hold amlodipine
now on IV lasix, will stop Lasix. Cards signed off. probnp elevated. per echo on last admission, stage 2 diastolic dysfunction. suspect Acute on chronic HFpEF
BUN/Creat 80/1.9
holding PO metoprolol; cw IV lopressor
Amiodarone stopped by cardiology. Continue to monitor
LFTs could likely be elevated secondary to Zosyn for congestion; continue to monitor
apply TEDS for orthostatic hypotension
Levothyroxine decreased to 150. Patient to get repeat TSH with free T4 in 4 to 6 weeks outpatient
should check TSH/T4 currently in pt unable to take po, consider SQ based on levels
PT OT and assess functional status
CODE STATUS full code
DVT prophylaxis is Xarelto; if needed to be off due to NPO for longer then consider hep gtt
complex situation, reviewed with nursing
I spent a total of 65 minutes with the patient or on the floor. More than 50% of this time involved counseling and coordination of care. Reviewed with Dr. Hurtado
Met with at bedside, she had many concerns
Anticipated Discharge: > 48 hours
Subjective/Interval History
-
Date of Service: December 09, 2023
remains very weak
Objective Data
-
Vital Signs:
Vital Signs
Temp Pulse Resp BP Pulse Ox
97.2 F 70 17 119/62 94
12/09/23 15:46 12/09/23 18:00 12/09/23 18:00 12/09/23 18:00 12/09/23 18:00
I&O
12/08/23 12/09/23 12/10/23
06:59 06:59 06:59
Intake Total 450 / 450 160 / 160 550 / 550
Output Total 2475 / 2475 2875 / 2875 1100 / 1100
Balance -5 / -5 -2715 / -2715 -550 / -550
Review of Systems
-
History Source: Patient and Coordinated Provider
Constitutional: Denies Fever (most recently hypothermic 96.8)
Respiratory: Reports Trouble Breathing
Cardiac: Denies Chest Pain
Abdomen/GI: Reports Abdominal Pain
Physical Exam
-
General: Well Developed, Well Nourished and No Apparent Distress
HEENT: Normocephalic, Atraumatic and Moist Mucous Membranes
Respiratory: Other (coarse BS); Negative Wheezes
Cardiac: S1/S2 and Irregular Rhythm
GI: Soft, Nontender and Distended; Negative Normal Bowel Sounds (absent BS)
Musculoskeletal: No Clubbing, No Cyanosis and No Edema
Neuro: Awake, Alert and Oriented
[2023-12-09 20:15] LABS: Hematocrit 28.2 % (39.0-52.0); Mean Corp Hgb Conc. 31.9 g/dL (33.0-37.0); Mean Corpuscular Hgb 28.6 pg (27.0-31.0); Mean Corpuscular Volume 89.5 fL (80.0-94.0); Mean Platelet Volume 9.5 fL (7.4-10.4); Platelet Count 325 10^3/uL (130-400); Red Blood Cell Count 3.15 10^6/uL (4.70-6.10); Red Cell Dist. Width 17.1 % (11.5-14.5); White Blood Cell Count 17.8 10^3/uL (4.8-10.8)
[2023-12-09] MEDS: KCL 1010 MEQ IV (20:27)
[2023-12-09 20:29] LABS: APTT 37.3 Sec (23.4-35.0)
[2023-12-09] MEDS: HEPARIN 25000 UNITS/250 ML IV (20:48)
[2023-12-10] VITALS (20 sets, daily range): BP systolic 89–151; BP diastolic 32–123; BMI 29.1
[2023-12-10 03:25] LABS: % Basophils 0.1 % (0-2); % Immature Granulocytes 1.2 % (0-0.5); % Lymphocytes 2.5 % (20.5-51.1); % Monocytes 3.9 % (1.7-9.3); % Neutrophils 92.3 % (42.2-75.2); Absolute Immature Granulocytes 0.2 10^3/uL (0-0.05); Absolute Lymphocytes 0.4 10^3/uL (1.2-3.4); Absolute Monocytes 0.7 10^3/uL (0.1-0.6); Hematocrit 28.1 % (39.0-52.0); Hemoglobin 9.1 g/dL (13.0-18.0); Mean Corp Hgb Conc. 32.4 g/dL (33.0-37.0); Mean Corpuscular Hgb 29.3 pg (27.0-31.0); Mean Corpuscular Volume 90.4 fL (80.0-94.0); Mean Platelet Volume 9.9 fL (7.4-10.4); Nucleated Red Blood Cells % 1.3 % (-); Platelet Count 338 10^3/uL (130-400); Red Blood Cell Count 3.11 10^6/uL (4.70-6.10); Red Cell Dist. Width 17.2 % (11.5-14.5); White Blood Cell Count 17.4 10^3/uL (4.8-10.8)
[2023-12-10 03:42] LABS: APTT 77.8 Sec (23.4-35.0)
[2023-12-10 03:48] LABS: Blood Urea Nitrogen 95 mg/dl (9-20); Calcium 8.2 mg/dl (8.4-10.2); Carbon Dioxide 37 mmol/L (22-30); Chloride 110 mmol/L (98-107); Estimated Creatinine Clearance 33 ml/min; Glucose 202 mg/dl (70-99); Potassium 3.5 mmol/L (3.5-5.1); Sodium 151 mmol/L (135-145); eGFR 33.74
[2023-12-10 03:56] LABS: NT-proBNP 6700 pg/ml
[2023-12-10] MEDS: SOLU-MEDROL PF 40 MG IV ×4 (04:00→21:39)
[2023-12-10 04:18] LABS: TSH Reflex To Free T4 < 0.02 uIU/ml (0.47-4.68)
[2023-12-10] MEDS: MERREM 500 MG IV ×3 (05:35→21:39)
[2023-12-10] MEDS: STERILE WATER FOR INJECTION 10 ML IV ×3 (05:35→21:39)
--- NOTE | 2023-12-10 08:26 | W.PN.ID1 ---
Date of Service
Date of Service: December 10, 2023
Today's Communication
Continue antibiotics for today.
Assessment / Plan
# Aspiration pneumonia.
- Hx of vocal cord dysfunction post CABG.
# Acute on chronic heart failure
# Acute hypoxemic respiratory failure due to PNA and heart failure/moderate bilateral pleural effusions. Increasing 02 requirement
- currently on high flow O2
# Acute elevated LFTs
- ?zosyn vs congestive hepatitis
- improving
# Leukocytosis
- suspect steroid effect.
#LEATHA
# Ileus
- NG to suction in place
# s/p recent CABG x 4 (11/16/2023)
Plan:
- COVID/Flu neg
- blood cx neg
- Repeat CXR: progression of extensive R>L infiltrate
- Aspiration precaution
- Continue meropenem; follow CrCl to guide dosing.
#Additional Past Medical History:
Hypertension
Hyperlipidemia
Hypothyroidism
Hx cardiac arrest s/p left chest PPM
Right chest PPM implant 11/20/23
CAD s/p CABG x 4 (11/16/23)
HFpEF
Pituitary tumor (benign) status post resection
TIA
Chronic LE edema
cholecystectomy
����������������������������������������������������������
Chief Complaint
-: Leukocytosis and Pneumonia
Subjective / Review of Systems
Patient seen and examined. No significant changes from yesterday. Patient has been moved to high flow O2.
Vital Signs / Physical Exam
Vital Signs
Vital Signs
Temp Pulse Resp BP Pulse Ox
97.7 F 70 18 128/44 93
12/10/23 07:44 12/10/23 00:00 12/10/23 00:00 12/10/23 00:00 12/10/23 07:44
Physical Exam
Constitutional: Comfortable and Non-toxic
Eyes: Sclera Anicteric
Cardiovascular: S1/S2; Negative S3/S4
Pulmonary: Coarse and Non Labored; Negative Wheezes or Rales
Gastrointestinal: Soft and Non Distended
Extremities: Edema; Negative Erythema
Skin: Negative Rash or Jaundice
Psychological: Calm
Objective Data
Lab Data
Lab Results
12/10/23 03:10
12/10/23 03:10
APTT 77.8 Sec (23.4-35.0) H 12/10/23 03:10
Estimated Creat Clear 33 ml/min 12/10/23 03:10
Total Bilirubin 1.6 mg/dl (0.2-1.3) H 12/09/23 04:37
AST 60 U/L (17-59) H 12/09/23 04:37
ALT 88 U/L (0-50) H 12/09/23 04:37
Alkaline Phosphatase 220 U/L (38-126) H 12/09/23 04:37
Most recent labs reviewed.
Micro Results:
12/02/23 15:56 Blood Culture - Final
Blood/Venous No Growth - Final Report
12/02/23 15:56 Blood Culture - Final
Blood/Venous No Growth - Final Report
12/02/23 23:07 Nasal Screen MRSA (PCR) - Final
Nose MRSA not detected - performed by PCR methodology.
12/03/23 10:24 Legionella Urinary Antigen - Final
Urine Negative for Legionella pneumophila Serogroup 1 antigen.
A negative result does not rule out the possiblity of
Legionella infection due to other serogroups or species of
Legionella. Clinical correlation is recommended.
Streptococcus pneumoniae Antigen (M - Final
Negative for Streptococcus pneumoniae antigen.
A negative result does not exclude infection with
Streptococcus pneumoniae. Clinical correlation is
recommended.
12/02/23 14:57 Influenza Types A & B (CLEO) - Final
Nasal Swab Negative for Influenza A & B, NAAT
Negative results must be combined with clinical observations
and patient history.
Nucleic Acid Amplification test (NAAT)performed on the
[employer] platform.
11/18/23 CXR: Severe bilateral pneumonia with progression in the left lung compared to the chest radiograph from 12/05/2023.
12/08/23 ABD US: Surgically absent gallbladder. No bile duct dilatation.
12/06/23 AXR: Moderate distention of the stomach, colon, and rectum with air and contrast material which is most likely secondary to an acute adynamic ileus.
12/06/23 CT chest wo IV contrast: There is groundglass pattern throughout both lungs, right much worse than left with focal areas of airspace disease predominantly on the right. The pattern is most suggestive of diffuse pneumonia. Moderately large
bilateral pleural effusions.
12/05/23 CXR: Stable extensive right lung pneumonia. Stable post operative changes.
12/02/23 CXR: Significant change in the appearance of the lungs, with new right upper and lower lung zone pneumonia and parapneumonic effusion.
[2023-12-10] MEDS: MIRALAX 17 GRAMS PO (09:00)
[2023-12-10] MEDS: KCL 1010 MEQ IV ×2 (09:01→21:37)
[2023-12-10] MEDS: LOW STRENGTH ASPIRIN 81 MG PO (09:03)
[2023-12-10] MEDS: MUCINEX PO (09:07)
[2023-12-10] MEDS: ZYLOPRIM 300 MG PO (09:07)
[2023-12-10] MEDS: COLACE PO (09:07)
[2023-12-10] MEDS: COLACE LIQUID 100 MG TUBE (09:41)
--- NOTE | 2023-12-10 09:42 | PTCARENOTE ---
received in bed at 0700. patient open his eyes to touch, unable to follow commends. Afib 70; , BP via RT lower le/43. RR 14; POX 97% on high flow. Heparin at 10 ml or 1000 units. Ptt will be send. RT nares NJ tube auscultated for placement.
Draining dark brown output. N/J to Lower-intermittent suctioning. Output will be monitored. All po meds adm via N-j tube suctioning placed on hold for short period of time. Bowel sound absent. Condom catheter intact draining lexx urine. +2
generalized edema pedal pulses weak. rectal temp 97.8. Repositioned Q 2 hrs HOB elevated. arms and legs elevated on pillows . call coats with reach. D50.2 NCL with K-cl at 80/hr and heparing infusing via RT hand peripheral line .
--- NOTE | 2023-12-10 09:58 | PTCARENOTE ---
ptt send results pending
[2023-12-10 10:47] LABS: APTT 89.8 Sec (23.4-35.0)
--- NOTE | 2023-12-10 11:28 | W.PN.PUL3 ---
Today's Communication / Plan
-
HFNC - wean o2 and flow rate as tolerated
Atbs per ID
CS with Solumedrol 40mg IV q6hr --> may need to raise if his FiO2 requirements worsen
Check TTE
Diuresis on hold given worsening Cr
Heparin gtt
Guarded prognosis
Assessment
-
Assessment:
Mr Madhav Morales is a 78/M adm 12-02 from [facility] where he was rehabilitating after sustaining MSTEMI for which he received CABG at on 11-16-23 (also received R sided PPM for AVB), with 4 d h/o productive cough of greenish sputum, chills and
dyspnea. At ER, R sided infiltrate, started on vancomycin/cefepime, then changed to zosyn since 12-03. Increasing O2 requirements led to pulm consultation 12-06
Impression:
Bilateral pneumonia/pneumonitis R>>L (suspect component of inflammatory pneumonitis)
Bilateral dependent pleural effusions and compressive L base atelectasis
Leukocytosis
Persistent moderate anemia
Transaminitis - improving
Elevated BNP
Normal PCT 12-03
Dysphagia: mild oral and mild-moderate pharyngeal
Ileus s/p NGT
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
CAD s/p CABGx4 and PPM (AVB) early Nov 2023
PAFib on rivaroxaban, L sided PPM in past, on amiodarone
HTN
HLD
Gout
Hypothyroidism
Diastolic dysfunction
Moderate MR
Chronic hyponatremia
Pituitary tumor s/p resection
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
R sided blindness
TIA
Fatty liver
Cholecystectomy
Nonsmoker
Plan:
Transferred to IMU level of care due to worsening resp failure 12-06
Blood cxs, MRSA screening, COVID/flu/Leg/Strep negative
No sputum cx available yet, ordered, not yet collected
On atbs since adm (zosyn)
Noted ^AST, ALT, AP, TB, could be secondary to zosyn and/or HF
ID consulted: atbs changed to cefepime/metronidazole on 12-06 --> then changed to meropenem on 12/08
Consider resp viral panel if OK with ID
Consider updating TTE --> repeat TTE ordered for tomorrow to eval LVEF and valve function given his b/l pleural effusions with component of ADHF to his hypoxia
Reportedly some orthostatic findings 12-07 re drop on SBP only but no tachycardia as tested by RN
Scheduled diuretics were on hold however then was back on 20 mg IV Lasix since 12/07 --> held today due to worsening Cr
Though no suspected amiodarone toxicity, given significant changes on chest CT will be rec to avoid amiodarone (now discontinued)
Chest CT s/c 12-06, reviewed, diffuse pneumonitis with scattered denser areas on R field and patchy pneumonitis areas at MANUEL, bilateral dependent moderate PF and compressive L base atelectasis
Suspect progressive changes by comparing to adm CXR
Initiated empiric systemic CS (MP 40 mg IV q6) on 12-06
Tried BPAP trial at 16/8 with fiO2 to keep POx>=92%, could not tolerate BPAP evening upon initiation at IMU
Tolerated HFNC at 1.0/50-55L, POx low 90s
Resumed BPAP 16/8, 15L in AM 12-08, tolerated well, POx 99% --> currently on high flow nasal cannula FiO2 55% --> continue to wean down FiO2 as tolerated while keeping SpO2 >90-94%
Dns prn
Update CXR portable 12-08, some improvement in R field pneumonitis, increased pulm vasc congestion at L field
Keep NPO except meds in meantime
Seen by Speech, VSE 12-04 showed mild O and mild-mod P dysphagia
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
Abd distension and mild pain
AXR with adynamic ileus
GI following, NGT placed --> monitor output
Follow anemia, transfuse if Hgb <7
Continue AC --> heparin gtt started on 12/09 since he is not getting his NOAC
Full code status
Prognosis remains guarded
D/w Mr and Mrs Morales at bedside 12-10
Pulmonary service will continue to follow along.
Diagnostic tests:
Chest/Abd XR 12-09-2023:
Relatively stable appearance of the chest. Extensive diffuse bilateral interstitial and airspace opacity. Nasogastric tube extends into the stomach. No pneumothorax.
Examination of the abdomen demonstrates opaque contrast material within the colon, without significant change or distal propagation compared to the prior examination. As before, contrast is predominantly within the ascending colon, transverse colon,
and proximal to mid descending colon. This has not extended any further distally. However, no colonic dilatation to suggest obstruction.
Relative paucity of small bowel gas.
No suspicious air-fluid levels.
No free air.
CXR 12-05-23, c/w 20 and 11-21-23. Baseline with no infiltrates. Fillms this adm with new onset R sided infiltrate and mild pulm vasc congestion on L. Last adm with new L sided PPM (already had L sided PPM)
Subjective Data
-
Date of Service:
Date of Service: December 10, 2023
Chief Complaint: Pulmonary Follow Up
Subjective:
Seen this morning, at bedside. He is saturating 92% on high flow nasal cannula at FiO2 55%. BP 89/67. NG tube on low intermittent wall suction with 1.35 L removed over the last 24 hours. Patient more lethargic today.
Review of Systems
General: Other (Unable to obtain due to patient's acute clinical condition)
Objective Data
Data Reviewed
Vital Signs / I&O / Oxygen:
Vital Signs
Temp Pulse Resp BP Pulse Ox
97.7 F 70 18 128/44 92
12/10/23 07:44 12/10/23 00:00 12/10/23 00:00 12/10/23 00:00 12/10/23 11:13
Intake and Output
12/09/23 12/10/23 12/11/23
06:59 06:59 06:59
Intake Total 160 / 160 1450 / 1450
Output Total 2875 / 2875 2400 / 2400
Balance -2715 / -2715 -950 / -950
SaO2 92
Nasal Cannula flow liters per 55
minute
Physical Exam
General: Respiratory Distress (neg) and Sweats (n)
HEENT: Normocephalic and Anicteric
Cardiovascular: Irregular Rhythm (Irregularly irregular), Peripheral Edema (trace LE edema b/l) and Calf Tenderness (n)
Respiratory: Wheeze (n), Crackles (posteriorly bibasilar), Rhonchi (neg), Accessory Resp Muscle Use (mild) and Stridor (n)
GI: Soft, Non Distended, Non Tender, NG Tube and Other (hypoactive)
Neurology: No Motor Deficits, Lethargic and Non Verbal
Skin: Warm and Dry
Labs/Micro/Reports
Lab Data
12/10/23 03:10
12/10/23 03:10
Laboratory Results
12/09/23 12/10/23 12/10/23
20:09 03:10 09:58
APTT 37.3 H 77.8 H 89.8 H
Microbiology
12/02/23 15:56 Blood/Venous Blood Culture - Final
No Growth - Final Report
12/02/23 15:56 Blood/Venous Blood Culture - Final
No Growth - Final Report
--- NOTE | 2023-12-10 12:14 | PTCARENOTE ---
PTT 89.8. per protocol Target range no change in rate . Heparin at 08/1000 units infusing via RT hand . No simons in mental status noted since this am. pt awake, aroused to voice. pt is not talking and following commands. A/fib on a monitor. BP via
left calf : 121/55 MAP 68. HR 77. RR 17; POX 95 RA pt on high flow
[2023-12-10 12:17] LABS: Glucose - Point of Care 181 mg/dl (70-99)
--- NOTE | 2023-12-10 12:29 | W.PN.GI.CBS2 ---
Today's Communication / Plan
-
GI s/o
Assessment / Plan
-
78 year old male who had a recent NSTEMI, CABGx4 and pacemaker, developed cough, SOB, weakness while at [facility] and was admitted to for healthcare-acquired pneumonia on 12/02/2023. GI is consulted to evaluate patient due to abdominal x-ray
showing air distension of the stomach, colon and rectum, likely due to acute adynamic ileus. Pt does c/o nausea intermittently, and reports one episode of vomiting 'black stuff' previously. No abdominal pain.
NG tube remains. Na 151 today. K is improved to 3.5, Cr worsening. Continue with NG tube. Minimal role of GI in caring for his critically ill pt, will s/o, pls call with additional questions.
Total Time Spent with Patient (in minutes): 35
Subjective
Subjective
Date of Service: December 10, 2023
persistent electrolyte derangement
Objective
Data Reviewed
Laboratory Data:
Laboratory Results
12/10/23 03:10
12/10/23 03:10
Laboratory Results
APTT 89.8 Sec (23.4-35.0) H 12/10/23 09:58
Magnesium 2.3 mg/dl (1.6-2.3) 12/02/23 14:57
Total Bilirubin 1.6 mg/dl (0.2-1.3) H 12/09/23 04:37
AST 60 U/L (17-59) H 12/09/23 04:37
ALT 88 U/L (0-50) H 12/09/23 04:37
Alkaline Phosphatase 220 U/L (38-126) H 12/09/23 04:37
Vital Signs and I&O:
Vital Signs
Temp Pulse Resp BP Pulse Ox
97.7 F 74 19 121/55 94
12/10/23 11:46 12/10/23 12:00 12/10/23 12:00 12/10/23 12:00 12/10/23 12:00
I&O
12/09/23 12/10/23 12/11/23
06:59 06:59 06:59
Intake Total 160 / 160 1450 / 1540 530 / 530
Output Total 2875 / 2875 2400 / 2450 300 / 300
Balance -2715 / -2715 -950 / -910 230 / 230
[2023-12-10] MEDS: ROBITUSSIN TUBE ×3 (14:24→23:22)
[2023-12-10] MEDS: ROBITUSSIN 200 MG TUBE ×3 (14:26→19:46)
[2023-12-10 16:47] LABS: Glucose - Point of Care 207 mg/dl (70-99)
--- NOTE | 2023-12-10 17:23 | W.PN.HOSP.TC ---
Addendum entered and electronically signed by Joel Lehman MD 12/10/23 17:39:
TSH <0.02
free T4 1.00
okay to hold on parenteral thyroid replacement
Original Note:
Today's Communication/Plan
-
follow labs
continue hypotonic saline
may need to consider TPN if ileus does not resolve
agree with RHC
consider nephro consult
Assessment / Plan
Assessment / Plan
Healthcare acquired pneumonia with recent hospitalization and been in a alf home
WBC 20k-->17.9k
Acute hypoxic respiratory failure secondary to pneumonia
Acute on Chronic hyponatremia
resolved Na 144, hypernatremic 150-->151
stopped the Lasix and started hypotonic saline
BUN/Creat 95/2.0
discussed with cardio (Marcel), requested cardio to continue to follow. Discussed RHC, is hesitant, discussed with her and requested she discuss further with cardio
Consider nephro consult pending on progression over next 24 hrs
Moderate protein caloric malnutrition
History of the hypopituitarism and hypothyroidism while T4 is little high and T3 is low.
Coronary artery disease s/p recent CABG
Sick sinus syndrome status post pacemaker
A-fib/A flutter, paroxysmal
currently in A. Fib. Start Heparin, no bolus
Chronic lower extremity edema, mild while he is on amlodipine
Hypertension.
Dilatory dysfunction
Acute on chronic HFpEF
Orthostatic hypotension
Hypokalemia
recurred K 2.9-->3.5
Adynamic ileus
GI has signed off
NG tube in place with large amount of NG aspiration
LEATHA
with rising BUN/Creat and Na with decrease in K, will need to hold Lasix and start cautious IVF replacement with D51/4NS with [address] Meq KCL
[address] with Dr[address] Hurtado
Elevated LFTs
CXR extensive diffuse bilateral interstitial and airspace opacity
Abd opaque contrast material within colon, has not progressed, no colonic obstruction noted
12/06 CT scan: There is groundglass pattern throughout both lungs, right much worse than left with focal areas of airspace disease predominantly on the right. The pattern is most suggestive of diffuse pneumonia.
PLAN:
Managed with broad-spectrum antibiotic,
Was on Zosyn, due to elevated LFTs now switched to cefepime/Flagyl. ID following, now on Meropenem 500 mg IV q8h
remains NPO
Cough medication
Tylenol as needed
Sputum� culture
Monitor vital sign
xray with possible pneumonia and parapneumonic effusion -repeat x-ray with pneumonia. CT chest 12/07 with groundglass pattern throughout both lungs consistent with diffuse pneumonia. Pulmonary following. Now on high flow.
COVID, flu, Legionella, strep neg
Monitor leukocytosis; now on methylprednisilone
�VSE 12-04 showed mild O and mild-mod P dysphagia
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
N.p.o. for now for ileus
GI following
NG tube today
hold amlodipine
was on IV lasix, will stop Lasix. probnp elevated. per echo on last admission, stage 2 diastolic dysfunction. suspect Acute on chronic HFpEF
BUN/Creat 80/1.9
holding PO metoprolol; cw IV lopressor
Amiodarone stopped by cardiology. Continue to monitor
LFTs could likely be elevated secondary to Zosyn for congestion; continue to monitor
apply TEDS for orthostatic hypotension
Levothyroxine decreased to 150. Patient to get repeat TSH with free T4 in 4 to 6 weeks outpatient
should check TSH/T4 currently in pt unable to take po, consider SQ based on levels
PT OT and assess functional status
CODE STATUS full code
Pt started on Heparin drip with protocol
complex situation, reviewed with nursing
I spent a total of 65 minutes with the patient or on the floor. More than 50% of this time involved counseling and coordination of care. Reviewed with Dr. Hurtado
Met with at bedside, she had many concerns
Anticipated Discharge: > 48 hours
Subjective/Interval History
-
Date of Service: December 10, 2023
Continues to appear ill, reviewed extensively with at bedside
Objective Data
-
Labs:
Laboratory Results
12/10/23
09:58
APTT 89.8 H
Vital Signs:
Vital Signs
Temp Pulse Resp BP Pulse Ox
97.5 F 74 19 121/55 97
12/10/23 15:30 12/10/23 12:00 12/10/23 12:00 12/10/23 12:00 12/10/23 15:33
I&O
12/09/23 12/10/23 12/11/23
06:59 06:59 06:59
Intake Total 160 / 160 1450 / 1540 710 / 710
Output Total 2875 / 2875 2400 / 2450 500 / 500
Balance -2715 / -2715 -950 / -910 210 / 210
Review of Systems
-
History Source: Patient and Coordinated Provider
Constitutional: Denies Fever (afebrile with most recently hypothermic 96.8 on 12/09 11:23)
Respiratory: Reports Trouble Breathing
Cardiac: Denies Chest Pain
Abdomen/GI: Reports Abdominal Pain
Physical Exam
-
General: Well Developed, Well Nourished and No Apparent Distress (on high flow oxygen supplement)
HEENT: Normocephalic, Atraumatic and Moist Mucous Membranes
Respiratory: Rales (bibasilar rales) and Other (coarse BS); Negative Wheezes
Cardiac: S1/S2 and Irregular Rhythm
GI: Soft, Nontender and Distended; Negative Normal Bowel Sounds (absent BS)
Musculoskeletal: No Clubbing, No Cyanosis and No Edema
Neuro: Awake, Alert and Oriented
--- NOTE | 2023-12-10 18:07 | PTCARENOTE ---
patient in bed. Aroused to voice. Afib 68. BP via Rt lower leg' 129/67 MAP 84 RR 20. High flow decreased to 50L/55%. POX 94% NJ dark brown output 700cc for this shift. Condom catheter in place draining clear lexx urine . Blood sugar 208. call coats
within reach
[2023-12-10 19:35] LABS: Glucose - Point of Care 240 mg/dl (70-99)
[2023-12-10] MEDS: HEPARIN 25000 UNITS/250 ML IV (19:37)
[2023-12-10] MEDS: NOVOLOG FLEXPEN-LOW RESISTANCE 2 UNITS SC ×2 (19:46→23:21)
--- NOTE | 2023-12-10 20:00 | PTCARENOTE ---
rec'd pt resting in bed, lethargic butarouses to name, nods head appropriately, no verbal response, weak; afib/ v paced, weak distal pulses, skin warm/dry, o2 via hi flow 50 liters/ 55%sat 93-97, lungs decr. tachypneic, shallow, no cough, hypo bowel
soundsm\\, no bm, abd flat/ soft; R nares [place] to low inter wall suction draining brown liq, irrigated q4h w/ 30 tap h20,#21 condom cath - voiding lexx urine; hep gtt cont at 1000 units/hr
--- NOTE | 2023-12-10 20:30 | PTCARENOTE ---
hi flow decr to 50 liters/ 50% by resp
[2023-12-10 23:24] LABS: Glucose - Point of Care 204 mg/dl (70-99)
[2023-12-11] VITALS (24 sets, daily range): BP systolic 81–130; BP diastolic 53–105
--- NOTE | 2023-12-11 00:01 | PTCARENOTE ---
sys reviewed, nods head appropriately to questions, CHG bath done, linens changed, MK oates
[2023-12-11] MEDS: SOLU-MEDROL PF 40 MG IV ×4 (03:20→21:23)
[2023-12-11] MEDS: ROBITUSSIN TUBE (03:30)
[2023-12-11 03:42] LABS: Hematocrit 30.7 % (39.0-52.0); Hemoglobin 9.3 g/dL (13.0-18.0); Mean Corp Hgb Conc. 30.3 g/dL (33.0-37.0); Mean Corpuscular Hgb 29.1 pg (27.0-31.0); Mean Corpuscular Volume 95.9 fL (80.0-94.0); Mean Platelet Volume 10.4 fL (7.4-10.4); Platelet Count 332 10^3/uL (130-400); Red Cell Dist. Width 17.5 % (11.5-14.5); White Blood Cell Count 17.9 10^3/uL (4.8-10.8)
--- NOTE | 2023-12-11 03:47 | PTCARENOTE ---
sys reviewed, changes noted
[2023-12-11 03:54] LABS: APTT 97.4 Sec (23.4-35.0)
[2023-12-11 04:21] LABS: Blood Urea Nitrogen 109 mg/dl (9-20); Calcium 8.3 mg/dl (8.4-10.2); Carbon Dioxide 37 mmol/L (22-30); Chloride 106 mmol/L (98-107); Estimated Creatinine Clearance 37 ml/min; Glucose 201 mg/dl (70-99); Potassium 3.9 mmol/L (3.5-5.1); Sodium 152 mmol/L (135-145); eGFR 38.29
[2023-12-11] MEDS: NOVOLOG FLEXPEN-LOW RESISTANCE 1 UNITS SC (05:08)
[2023-12-11] MEDS: STERILE WATER FOR INJECTION 10 ML IV ×3 (05:09→21:23)
[2023-12-11] MEDS: MERREM 500 MG IV ×3 (05:10→21:23)
[2023-12-11 05:17] LABS: Glucose - Point of Care 196 mg/dl (70-99)
--- NOTE | 2023-12-11 07:24 | W.PN.PUL3 ---
Today's Communication / Plan
-
HFNC
MP
Meropenem
D5W
Assessment
-
Assessment:
Mr Madhav Morales is a 78/M adm 12-02 from [facility] where he was rehabilitating after sustaining MSTEMI for which he received CABG at on 11-16-23 (also received R sided PPM for AVB), with 4 d h/o productive cough of greenish sputum, chills and
dyspnea. At ER, R sided infiltrate, started on vancomycin/cefepime, then changed to zosyn since 12-03. Increasing O2 requirements led to pulm consultation 12-06
Impression:
Bilateral pneumonia/pneumonitis R>>L (suspect component of inflammatory pneumonitis)
Bilateral dependent pleural effusions and compressive L base atelectasis
Leukocytosis
Persistent moderate anemia
Transaminitis - improving
Elevated BNP
Normal PCT 12-03
Dysphagia: mild oral and mild-moderate pharyngeal
Ileus s/p NGT
Conditions [employer]:
CAD s/p CABGx4 and PPM (AVB) early Nov 2023
PAFib on rivaroxaban, L sided PPM in past, on amiodarone
HTN
HLD
Gout
Hypothyroidism
Diastolic dysfunction
Moderate MR
Chronic hyponatremia
Pituitary tumor s/p resection
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
R sided blindness
TIA
Fatty liver
Cholecystectomy
Nonsmoker
Plan:
Transferred to IMU level of care due to worsening resp failure 12-06
Blood cxs, MRSA screening, COVID/flu/Leg/Strep negative
No sputum cx available yet, ordered, not yet collected
On atbs since adm (zosyn)
Noted ^AST, ALT, AP, TB, could have been secondary to zosyn and/or HF
ID consulted: atbs changed to cefepime/metronidazole on 12-06 --> then changed to meropenem on 12/08, D4/7 on 12-11
Consider updating TTE --> repeat TTE 12-11 pending to eval LVEF and valve function given his b/l pleural effusions with component of ADHF to his hypoxia
Reportedly some orthostatic findings 12-07 re drop on SBP only but no tachycardia as tested by RN
Scheduled diuretics were on hold however then was back on 20 mg IV Lasix since 12/07 --> held due to worsening Cr
Though no suspected amiodarone toxicity, given significant changes on chest CT will be rec to avoid amiodarone (now discontinued)
Cards following closely, given interim improvement holding on RHC for now
Eventual DCCV
Chest CT s/c 12-06, reviewed, diffuse pneumonitis with scattered denser areas on R field and patchy pneumonitis areas at MANUEL, bilateral dependent moderate PF and compressive L base atelectasis
Suspect progressive changes by comparing to adm CXR
Initiated empiric systemic CS (MP 40 mg IV q6) on 12-06
Tried BPAP trial at 16/8 with fiO2 to keep POx>=92%, could not tolerate BPAP evening upon initiation at IMU
Tolerating HFNC at 1.0/50-55L, POx low 90s
Currently at 0.5/50L, POx 93%
continue to wean down FiO2 as tolerated while keeping SpO2 >90-94%
Dns prn
CXR portable 12-08, some improvement in R field pneumonitis, increased pulm vasc congestion at L field
CXR 12-11: moderately improved bilateral pneumonitis
Keep NPO except meds in meantime
Seen by Speech, VSE 12-04 showed mild O and mild-mod P dysphagia
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
Abd distension and mild pain
AXR with adynamic ileus
GI following, acute adynamic ileus, NGT placed --> monitor output
GI signed off 12-10
LEATHA
Hypernatremia since 12-09
FW deficit 4.5 L
Started hypotonic saline initially, changed to D5 100 mL/h on 12-11
Holding diuretic
Appreciate Renal recs
Follow anemia, transfuse if Hgb <7
Continue AC --> heparin gtt started on 12/09 since he is not getting his NOAC
Worsening peripheral access: PICC ordered 12-11
IV team attempted both UEE, unable to adavance wire/cath (bilateral PMs), rec IRad consultation, TT Dr Lees
Full code status
Prognosis remains guarded
D/w MDT
D/w Mrs Morales at bedside 12-11, all questions answered
Diagnostic tests:
Chest/Abd XR 12-09-2023:
Relatively stable appearance of the chest. Extensive diffuse bilateral interstitial and airspace opacity. Nasogastric tube extends into the stomach. No pneumothorax.
Examination of the abdomen demonstrates opaque contrast material within the colon, without significant change or distal propagation compared to the prior examination. As before, contrast is predominantly within the ascending colon, transverse colon,
and proximal to mid descending colon. This has not extended any further distally. However, no colonic dilatation to suggest obstruction.
Relative paucity of small bowel gas.
No suspicious air-fluid levels.
No free air.
CXR 12-05-23, c/w 20 and 11-21-23. Baseline with no infiltrates. Fillms this adm with new onset R sided infiltrate and mild pulm vasc congestion on L. Last adm with new L sided PPM (already had L sided PPM)
Subjective Data
-
Date of Service:
Date of Service: December 11, 2023
Chief Complaint: Pulmonary Follow Up
Subjective:
O2 requirement slowly improved
Lethargic
Review of Systems
General: Other (lethargy)
Objective Data
Data Reviewed
Vital Signs / I&O / Oxygen:
Vital Signs
Temp Pulse Resp BP Pulse Ox
98 F 78 18 123/89 96
12/11/23 04:49 12/11/23 05:04 12/11/23 05:04 12/11/23 05:04 12/11/23 05:00
Intake and Output
12/10/23 12/11/23 12/12/23
06:59 06:59 06:59
Intake Total 1450 / 1540 2270 / 2270
Output Total 2400 / 2450 2400 / 2400
Balance -950 / -910 -130 / -130
SaO2 96
Nasal Cannula flow liters per 50
minute
Physical Exam
General: Respiratory Distress
HEENT: Normocephalic and Anicteric
Cardiovascular: Irregular Rhythm (Irregularly irregular), Peripheral Edema (trace LE edema b/l) and Calf Tenderness (n)
Respiratory: Wheeze (n), Crackles (posteriorly bibasilar), Rhonchi (neg), Accessory Resp Muscle Use (mild) and Stridor (n)
GI: Soft, Non Distended, Non Tender, NG Tube and Other (hypoactive)
Neurology: Lethargic
Skin: Dry
Labs/Micro/Reports
Lab Data
12/11/23 03:19
12/11/23 03:19
Laboratory Results
12/10/23 12/11/23
09:58 03:19
APTT 89.8 H 97.4 H
[2023-12-11] MEDS: MIRALAX 17 GRAMS PO (08:31)
[2023-12-11] MEDS: ROBITUSSIN 200 MG TUBE ×5 (08:31→23:04)
--- NOTE | 2023-12-11 08:48 | W.PN.CD ---
Today's Communication / Plan
-
-
cont holding diuretic
cxr look better - we will hold off RHC for present time
Impression / Plan
-
Impression: 78M with recent NSTEMI -> CABG (11/16) & right sided PPM. He initially felt better, but developed dyspnea and resp fatigue, needed Tx to IMU
PMH: paroxysmal atrial flutter, SSS / AV block s/p PPM, HTN/HLD
Plan
Dyspnea/Pna/pneumonitis
-pneumonia or pneumonitis, started unilateral on R and then progressed to bilat
-Discontinued amiodarone. Treating w Meropenem, and steroid.
-initially Rx w lasix too - but this has been held due to azotemia/worsening renal fn
-CXR this AM looks better, less opague
.
CAD s/p recent CABG (11/16/23)
preserved LVEF
recurrent afib - see below
Aflutter, paroxysmal
-Currently in coarse A-fib. Continue with rate control (metoprolol 12.5/day) and anticoagulation . Patient currently on Xarelto
-Patient with suspected pneumonia but with pulmonary findings and tenuous respiratory status we discontinued amiodarone and continue with rate control right now.
-CHADS2-Vasc = 4 (HTN, Age x2, Vascular Disease). Xarelto stopped due to por po - now on Iv heparin
-no short term plan to DCCV; but eventually will plan for DCCV
Sick sinus syndrome / AV block
-R sided PPM set to VVI 40 bpm. Occluded venous system on the left shoulder with attempted venoplasty with only limited success.
-New right sided conduction system pacemaker implanted on 11/20/23.
HTN: Stable/controlled on current medication regimen.
Mixed hyperlipidemia -elevated LFT - hold statin statin amiodarone also held as noted above
Prior pituitary surgery
Legally blind
Remains critically ill
Subjective: Patient now on high flow O2 in ICU currently comfortable at rest no chest pain.
DATA:
Intraoperative KEVIN, 11/16/2023:
Overall LVEF is approximately 60% with no RWMA.
Moderate mitral regurgitation.
Mild tricuspid regurgitation.
Cardiac Catheterization, 11/10/2023:
Left Main: Normal
LAD: Tandem 50% ostial and 40% proximal LAD stenoses.� There is 30% mid LAD stenosis.� The major diagonal branch has 60% proximal to mid stenosis.
Circumflex: 90% ostial circumflex stenosis.� There is 40% mid circumflex stenosis.� OM1 is very large with 70% mid stenosis.� OM 2 is a small to medium sized bifurcating vessel with 60% ostial stenosis.
RCA: 50% mid RCA stenosis.� The RCA has otherwise mild diffuse disease.� The acute marginal branch supplies the distal PDA territory.� There is no clearly visible PDA and the posterolateral branches are small.
.
Physical Exam
Vital Signs/Labs
Vital Signs
Temp Pulse Resp BP Pulse Ox
97 F 78 18 123/89 92
12/11/23 07:55 12/11/23 05:04 12/11/23 05:04 12/11/23 05:04 12/11/23 07:40
12/10/23 12/11/23 12/12/23
06:59 06:59 06:59
Actual Weight 208 lb 8.917 oz 214 lb 11.684 oz
12/11/23 03:19
APTT 97.4 Sec (23.4-35.0) H 12/11/23 03:19
Magnesium 2.3 mg/dl (1.6-2.3) 12/02/23 14:57
Free T4 1.00 ng/dl (0.78-2.19) 12/10/23 03:10
12/02/23 12/03/23 12/10/23
14:57 09:22 03:10
Hyk-S-Zsuepjnecym Pept 5020 [id number]
Physical Exam
Cardiovascular: Rhythm/rate is irregular and Systolic murmur present
Respiratory: Labored respirations and Crackles Present
Data Reviewed
-
Date of Service: December 11, 2023
EKG: Tracing Personally Visualized and interpreted
Echo: Report Reviewed by me
Labs: Labs Reviewed by me
--- NOTE | 2023-12-11 09:40 | CON.MD ---
Consultation - Medical
-
Assessment
-diffuse PNA
-hypoxic respiratory failure
-LEATHA
-hypernatremia
-metabolic alkalosis
-anemia
-Afib/flutter
-HFpEF
-HTN
-elevated LFTs
Plan
-current FW deficit including ongoing losses is ~4.5L (ongoing ~700ml)
-D5W 100ml/hr to start
-serial BMP
-check urine studies
-alkalosis could be from contraction/volume depletion from water deficit, but may be compensatory given PNA. Could check ABG if it worsens despite volume
-no lasix
-LEATHA likely a function of volume loss
-essentially unmatched output starting 12/07
-critical care time 31 minutes
-[id number]
--- NOTE | 2023-12-11 10:00 | W.PN.ID1 ---
Date of Service
Date of Service: December 11, 2023
Today's Communication
Continue merropenem.
Assessment / Plan
# Aspiration pneumonia.
- Hx of vocal cord dysfunction post CABG.
# Acute on chronic heart failure
# Acute hypoxemic respiratory failure due to PNA and heart failure/moderate bilateral pleural effusions. Increasing 02 requirement
- currently on high flow O2
# Acute elevated LFTs
- ?zosyn vs congestive hepatitis
- improving
# Leukocytosis
- suspect steroid effect.
#LEATHA
# Ileus
- NG to suction in place
# s/p recent CABG x 4 (11/16/2023)
Plan:
- COVID/Flu neg
- blood cx neg
-12/11 repeat CXR shows improvement of interstitial prominence bilaterally
- Aspiration precaution
- Continue meropenem (d4 of 7)
#Additional Past Medical History:
Hypertension
Hyperlipidemia
Hypothyroidism
Hx cardiac arrest s/p left chest PPM
Right chest PPM implant 11/20/23
CAD s/p CABG x 4 (11/16/23)
HFpEF
Pituitary tumor (benign) status post resection
TIA
Chronic LE edema
cholecystectomy
����������������������������������������������������������
Chief Complaint
-: Leukocytosis and Pneumonia
Subjective / Review of Systems
Lethargic
Vital Signs / Physical Exam
Vital Signs
Vital Signs
Temp Pulse Resp BP Pulse Ox
97 F 78 18 123/89 92
12/11/23 07:55 12/11/23 05:04 12/11/23 05:04 12/11/23 05:04 12/11/23 07:40
Physical Exam
Constitutional: Acutely Ill
Cardiovascular: Irregular Rate and S1/S2
Pulmonary: Clear (anteriorly)
Gastrointestinal: Soft, Non Tender and Non Distended
Extremities: Edema
Neurological: Other (lethargic)
Objective Data
Lab Data
Lab Results
12/11/23 03:19
APTT 97.4 Sec (23.4-35.0) H 12/11/23 03:19
Estimated Creat Clear 37 ml/min 12/11/23 03:19
Total Bilirubin 1.6 mg/dl (0.2-1.3) H 12/09/23 04:37
AST 60 U/L (17-59) H 12/09/23 04:37
ALT 88 U/L (0-50) H 12/09/23 04:37
Alkaline Phosphatase 220 U/L (38-126) H 12/09/23 04:37
Most recent labs reviewed.
Micro Results:
12/02/23 15:56 Blood Culture - Final
Blood/Venous No Growth - Final Report
12/02/23 15:56 Blood Culture - Final
Blood/Venous No Growth - Final Report
12/02/23 23:07 Nasal Screen MRSA (PCR) - Final
Nose MRSA not detected - performed by PCR methodology.
12/03/23 10:24 Legionella Urinary Antigen - Final
Urine Negative for Legionella pneumophila Serogroup 1 antigen.
A negative result does not rule out the possiblity of
Legionella infection due to other serogroups or species of
Legionella. Clinical correlation is recommended.
Streptococcus pneumoniae Antigen (M - Final
Negative for Streptococcus pneumoniae antigen.
A negative result does not exclude infection with
Streptococcus pneumoniae. Clinical correlation is
recommended.
12/02/23 14:57 Influenza Types A & B (CLEO) - Final
Nasal Swab Negative for Influenza A & B, NAAT
Negative results must be combined with clinical observations
and patient history.
Nucleic Acid Amplification test (NAAT)performed on the
[employer] platform.
11/18/23 CXR: Severe bilateral pneumonia with progression in the left lung compared to the chest radiograph from 12/05/2023.
12/08/23 ABD US: Surgically absent gallbladder. No bile duct dilatation.
12/06/23 AXR: Moderate distention of the stomach, colon, and rectum with air and contrast material which is most likely secondary to an acute adynamic ileus.
12/06/23 CT chest wo IV contrast: There is groundglass pattern throughout both lungs, right much worse than left with focal areas of airspace disease predominantly on the right. The pattern is most suggestive of diffuse pneumonia. Moderately large
bilateral pleural effusions.
12/05/23 CXR: Stable extensive right lung pneumonia. Stable post operative changes.
12/02/23 CXR: Significant change in the appearance of the lungs, with new right upper and lower lung zone pneumonia and parapneumonic effusion.
12/11/23 CXR: �Interstitial prominence bilaterally, improved compared to prior chest x-ray, suggestive of improved pulmonary edema. Hazy opacity within the right upper and left lower lung zones, which may represent pneumonia or alveolar pulmonary
edema. Haziness of left hemidiaphragm. Small left pleural effusion may be present, consider PA and lateral views when possible.
[2023-12-11] MEDS: D5W 1000 IV ×2 (11:12→20:03)
[2023-12-11] MEDS: NOVOLOG FLEXPEN-LOW RESISTANCE 2 UNITS SC (12:16)
[2023-12-11 12:41] LABS: Glucose - Point of Care 219 mg/dl (70-99)
--- NOTE | 2023-12-11 12:50 | W.PN.HOSP.TC ---
Today's Communication/Plan
-
Monitor vital signs and see plan
Start D5 water
Monitor BMP
Continue with steroids
Still on high flow, wean oxygen as tolerated
Discussed care with spouse at bedside. Prognosis guarded. She wants patient to remain full code for now
Continue with NG tube
cw abx
Assessment / Plan
Assessment / Plan
Healthcare acquired pneumonia with recent hospitalization and been in a [facility] home
Acute hypoxic respiratory failure secondary to pneumonia
Acute on Chronic hyponatremia
cw d5w
stopped the Lasix and started hypotonic saline
BUN/Creat 95/2.0
Cardiology following. Holding off on right heart cath for now
Nephrology following
Moderate protein caloric malnutrition
History of the hypopituitarism and hypothyroidism while T4 is little high and T3 is low.
Coronary artery disease s/p recent CABG
Sick sinus syndrome status post pacemaker
A-fib/A flutter, paroxysmal
currently in A. Fib. Start Heparin, no bolus
Chronic lower extremity edema, mild while he is on amlodipine
Hypertension.
Dilatory dysfunction
Acute on chronic HFpEF
Orthostatic hypotension
Hypokalemia
Resolved
Adynamic ileus
GI has signed off
NG tube in place with large amount of NG aspiration
asked GI regarding management
LEATHA
nephrology following
monitor urine output
PLAN:
Managed with broad-spectrum antibiotic,
Was on Zosyn, due to elevated LFTs now switched to cefepime/Flagyl. ID following, now on Meropenem
remains NPO
Cough medication
Tylenol as needed
Sputum� culture
Monitor vital sign
xray with possible pneumonia and parapneumonic effusion -repeat x-ray with pneumonia. CT chest 12/07 with groundglass pattern throughout both lungs consistent with diffuse pneumonia. Pulmonary following. Now on high flow.
COVID, flu, Legionella, strep neg
Monitor leukocytosis; now on methylprednisilone
�VSE 12-04 showed mild O and mild-mod P dysphagia; speech to come again once patient mentation improves
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
suspect some wax and wane is 2/2 ongoing aspiration
N.p.o. for now for ileus
GI following
cw NGT; asked GI for management
hold amlodipine
was on IV lasix, will stop Lasix. probnp elevated. per echo on last admission, stage 2 diastolic dysfunction. suspect Acute on chronic HFpEF
holding PO metoprolol; cw IV lopressor
Amiodarone stopped by cardiology. Continue to monitor
LFTs could likely be elevated secondary to Zosyn for congestion; continue to monitor
apply TEDS for orthostatic hypotension
Levothyroxine decreased to 150. Patient to get repeat TSH with free T4 in 4 to 6 weeks outpatient
should check TSH/T4 currently in pt unable to take po, consider SQ based on levels
start IV thyroid
PT OT and assess functional status
CODE STATUS full code
Pt started on Heparin drip with protocol
Spoke in length with spouse at bedside 12/11. Discussed CODE STATUS and she currently wants patient to be full code. She is aware that prognosis appears guarded
I spent a total of 54 minutes with the patient or on the floor. More than 50% of this time involved counseling and coordination of care.
General: Well Developed, Well Nourished and No Apparent Distress (on high flow oxygen supplement)
HEENT: Normocephalic, Atraumatic and Moist Mucous Membranes
Respiratory: Rales (bibasilar rales) and Other (coarse BS); Negative Wheezes
Cardiac: S1/S2 and Irregular Rhythm
GI: Soft, Nontender and Distended; Negative Normal Bowel Sounds (absent BS)
Musculoskeletal: No Clubbing, No Cyanosis and No Edema
Neuro: Awake, Alert and Oriented
Anticipated Discharge: > 48 hours
Subjective/Interval History
-
Date of Service: December 11, 2023
Continues to be lethargic
Objective Data
-
Labs:
Laboratory Results
12/11/23 12/11/23 12/11/23
03:19 17:00 20:00
WBC 17.9 H
Hgb 9.3 L
Hct 30.7 L
Plt Count 332
APTT 97.4 H
Sodium 152 H Pending Pending
Potassium 3.9 Pending
Chloride 106 Pending
Carbon Dioxide 37 H Pending
BUN 109 H* Pending
Creatinine 1.8 H Pending
Glucose 201 H Pending
Calcium 8.3 L Pending
Vital Signs:
Vital Signs
Temp Pulse Resp BP Pulse Ox
97.5 F 80 31 105/70 93
12/11/23 11:30 12/11/23 10:00 12/11/23 10:00 12/11/23 09:00 12/11/23 11:14
I&O
12/10/23 12/11/23 12/12/23
06:59 06:59 06:59
Intake Total 1450 / 1540 2270 / 2360 340 / 340
Output Total 2400 / 2450 2400 / 2400
Balance -950 / -910 -130 / -40 340 / 340
--- NOTE | 2023-12-11 13:02 | VATNOTE ---
PICC attempt unsuccessful on both arms. On the L arm, vein was accessed and wire was able to be placed, but unable to advance the actual PICC catheter. On the R arm, vein was accessed, but unable to advance the wire. Vein selection on R arm was
poor. This was relayted to pt's primary RN and Dr. Mayers, who ordered the PICC. IR consult placed by Dr. Mayers.
[2023-12-11 13:24] LABS: Osmolality Urine 683 mOsm/kg (300-900)
[2023-12-11 14:08] LABS: Urine Sodium < 5 mmol/L (30-90)
[2023-12-11] MEDS: HEPARIN 25000 UNITS/250 ML IV (15:40)
--- NOTE | 2023-12-11 16:14 | CHAP ---
Attempted to arrange a railroad yard worker visit for Mr. Morales to receive Sacrament of the Sick. When railroad yard worker arrived, however, Mr. Morales was in Interventional Radiology. Will try again tomorrow. In the meantime, Lay Benefits Officer Tanvi Smiley provided Prayer in the
Absence of the Pv Installer Tech and a prayer blanket.
--- NOTE | 2023-12-11 17:22 | PTCARENOTE ---
Patient received in AM with assessment as noted. Continues minimally responsive only squeezing his hands weakly to command and tracking with his eyes. Nonverbal. Appears comfortable. A-fib with periods of V-pacing on monitor. Afebrile. B/P's stable.
Lungs decreased in bases bilaterally, otherwise CTA. Fio2 weaned from high flow 50 L, 50% to 8 lnc mid flow with Sao2 maintained >95%. Extremely hypoactive BS. Left nares Dougherty-Sump to low intermittent suction with green/black return noted. Had a
moderate sized brown/black hem positive very loose stool. Condom cath draining yellow urine. Right arm PICC line placed in I-Rad today. Heparin gtt and IVF's continue. present at bedside today and updated to patient condition. For transfer to
IMU pending bed availability. Will continue to monitor closely.
[2023-12-11 17:35] LABS: Sodium 149 mmol/L (135-145)
[2023-12-11] MEDS: NOVOLOG FLEXPEN-MODERATE RESISTANCE 3 UNITS SC ×2 (17:51→23:05)
[2023-12-11] MEDS: LEVOTHROID 75 MCG IV (17:52)
[2023-12-11 17:58] LABS: Glucose - Point of Care 203 mg/dl (70-99)
--- NOTE | 2023-12-11 20:00 | PTCARENOTE ---
Rec'd pt in bed, had pulled out sal[place], tracks voice and mouths words, not following commands but moves all extremities, bilat mitts applied, Afiv/ vpaced, weak distal pulses, + edema, skin warm/dry, hep gtt at 1000 units/hr, 02 decr to 6 liters
midflow, sat 100, lungs decr in bases, hypo bowel sounds, inc lg amt liquid brown stool, rectal trumpet to str drainage bag inserted, new 16 fr salem inserted R nares- at 60mm lilibeth, draining brown liquid, irrigated q4hr w/ 30 tap h2o, #21 condom
cath on- voiding yellow urine
[2023-12-11 20:48] LABS: Blood Urea Nitrogen 106 mg/dl (9-20); Calcium 7.3 mg/dl (8.4-10.2); Carbon Dioxide 35 mmol/L (22-30); Chloride 110 mmol/L (98-107); Estimated Creatinine Clearance 39 ml/min; Glucose 176 mg/dl (70-99); Potassium 3.2 mmol/L (3.5-5.1); Sodium 150 mmol/L (135-145); eGFR 41.01
--- NOTE | 2023-12-11 21:20 | PTCARENOTE ---
Dr rodriguez notified of chem results, 40 kcl/250 d5w hung over 4 hr per order
[2023-12-11] MEDS: KCL 270 MEQ IV (21:22)
[2023-12-11 22:49] LABS: Glucose - Point of Care 249 mg/dl (70-99)
--- NOTE | 2023-12-11 23:34 | PTCARENOTE ---
Sys reviewed, changes noted, o2 decr to 4 liters midflow, CHG bath done, linens changed
[2023-12-12] VITALS (46 sets, daily range): BP systolic 85–114; BP diastolic 53–79; BMI 29.1
[2023-12-12] MEDS: ROBITUSSIN 200 MG TUBE ×2 (03:00→07:45)
[2023-12-12] MEDS: SOLU-MEDROL PF 40 MG IV ×3 (03:00→21:59)
[2023-12-12 03:19] LABS: % Basophils 0.2 % (0-2); % Eosinophils 0.2 % (0-6); % Lymphocytes 3.2 % (20.5-51.1); % Monocytes 3.7 % (1.7-9.3); % Neutrophils 90.7 % (42.2-75.2); Absolute Basophils 0.1 10^3/uL (0-0.2); Absolute Immature Granulocytes 0.5 10^3/uL (0-0.05); Absolute Lymphocytes 0.8 10^3/uL (1.2-3.4); Absolute Monocytes 0.9 10^3/uL (0.1-0.6); Hematocrit 22.1 % (39.0-52.0); Hemoglobin 7.2 g/dL (13.0-18.0); Mean Corp Hgb Conc. 32.6 g/dL (33.0-37.0); Mean Corpuscular Hgb 30.6 pg (27.0-31.0); Mean Platelet Volume 10.6 fL (7.4-10.4); Nucleated Red Blood Cells % 3.1 % (-); Platelet Count 361 10^3/uL (130-400); Red Blood Cell Count 2.35 10^6/uL (4.70-6.10); Red Cell Dist. Width 18.3 % (11.5-14.5); White Blood Cell Count 25.4 10^3/uL (4.8-10.8)
[2023-12-12 03:27] LABS: APTT 147.6 Sec (23.4-35.0)
--- NOTE | 2023-12-12 03:41 | PTCARENOTE ---
sys reviewed, changes noted, rectal trumpet leaking, isa care given, o2 decr to 2 liters
--- NOTE | 2023-12-12 03:45 | PTCARENOTE ---
ptt 147.6, hep off x 1 hr,then to resume at 800 units/hr
--- NOTE | 2023-12-12 04:47 | PTCARENOTE ---
heparin gtt restarted at 800 units/hr per protocal
[2023-12-12 04:48] LABS: ALT (SGPT) 35 U/L (0-50); AST (SGOT) 35 U/L (17-59); Albumin 2.2 g/dl (3.5-5.0); Alkaline Phosphatase 131 U/L (38-126); Calcium 7.5 mg/dl (8.4-10.2); Carbon Dioxide 39 mmol/L (22-30); Chloride 108 mmol/L (98-107); Estimated Creatinine Clearance 31 ml/min; Glucose 228 mg/dl (70-99); Potassium 4.4 mmol/L (3.5-5.1); Sodium 149 mmol/L (135-145); Total Bilirubin 1.1 mg/dl (0.2-1.3); Total Protein 4.7 g/dl (6.3-8.2); eGFR 31.82
[2023-12-12] MEDS: NOVOLOG FLEXPEN-MODERATE RESISTANCE 3 UNITS SC ×2 (05:06→17:51)
[2023-12-12] MEDS: MERREM 500 MG IV ×3 (05:13→21:58)
[2023-12-12] MEDS: STERILE WATER FOR INJECTION 10 ML IV ×3 (05:13→21:58)
[2023-12-12 05:15] LABS: Glucose - Point of Care 227 mg/dl (70-99)
--- NOTE | 2023-12-12 05:30 | PTCARENOTE ---
Pepe Leung Np aware of hgb 7.2, to repeat this am at 1046
[2023-12-12 05:36] LABS: Blood Urea Nitrogen 129 mg/dl (9-20)
[2023-12-12] MEDS: D5W 1000 IV ×2 (06:43→20:39)
[2023-12-12] MEDS: MIRALAX PO (07:13)
--- NOTE | 2023-12-12 07:38 | W.PN.PUL3 ---
Addendum entered and electronically signed by Dakota Mayers MD 12/12/23 14:27:
Contacted by Dr Hogan, blood bank, re Anti-Sommer a present in type and cross evaluation, notified that Anti-u a is rarely clinically significant in the context of transfusion for most patients, is very rarely associated with mild, delayed hemolytic
transfusion reactions. When detected, there is usually no requirement for selection of Sommer a -ve donor RBCs, in fact, 92% of donor unites are Sommer a -ve.
I discussed the above with Mrs Morales in presence of NATASHA Arreguin, given the circumstances of severe anemia and urgent need for blood transfusion, Mrs Morales consented to proceed to best matching available units at now, will proceed to transfuse
Original Note:
Today's Communication / Plan
-
O2
CS taper
Asp precs
PRBCs
D5W
Monitor MS
Assessment
-
Assessment:
Mr Madhav Morales is a 78/M adm 12-02 from [facility] where he was rehabilitating after sustaining MSTEMI for which he received CABG at on 11-16-23 (also received R sided PPM for AVB), with 4 d h/o productive cough of greenish sputum, chills and
dyspnea. At ER, R sided infiltrate, started on vancomycin/cefepime, then changed to zosyn since 12-03. Increasing O2 requirements led to pulm consultation 12-06
Impression:
Bilateral pneumonia/pneumonitis R>>L (suspect component of inflammatory pneumonitis)
Bilateral dependent pleural effusions and compressive L base atelectasis
Lethargy
Worsening anemia
Heme positive liquid stools
Leukocytosis
Persistent moderate anemia
Transaminitis - improving
Elevated BNP
Normal PCT 12-03
Dysphagia: mild oral and mild-moderate pharyngeal
Ileus s/p NGT
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
CAD s/p CABGx4 and PPM (AVB) early Nov 2023
PAFib on rivaroxaban, L sided PPM in past, on amiodarone
HTN
HLD
Gout
Hypothyroidism
Diastolic dysfunction
Moderate MR
Chronic hyponatremia
Pituitary tumor s/p resection
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
R sided blindness
TIA
Fatty liver
Cholecystectomy
Nonsmoker
Plan:
Transferred to IMU level of care due to worsening resp failure 12-06
Blood cxs, MRSA screening, COVID/flu/Leg/Strep negative
No sputum cx available yet, ordered, not yet collected
On atbs since adm (zosyn)
Noted ^AST, ALT, AP, TB, could have been secondary to zosyn and/or HF
ID consulted: atbs changed to cefepime/metronidazole on 12-06 --> then changed to meropenem on 12/08, D5/7 on 12-12
Interim worsening decline in MS, out of proportion to hypernatremia for which D5W was initiated 12-11
Some spontaneous improvement in MS in later am 12-12
Change in MS multifactorial: acute anemia, hypotension, hypernatremia, ICU environment
Progressive drop in Hgb but then significant drop 12-12 from 9.3 to 7.2, liquid dark brown stools heme positive
On IV heparin since 12-09 while waiting to resume rivaroxaban, IV hep held 12-12 at 8:[address] s/c 12-12, pending report
Rechecked Hgb, confirmed severe anemia, to transfuse 2U PRBCs, called and consented over the phone. Per , no past h/o GIB
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
AXR 12-12 with no free air or ileus
Scheduled diuretics were on hold however then was back on 20 mg IV Lasix since 12/07 --> held due to worsening Cr
Though no suspected amiodarone toxicity, given significant changes on chest CT will be rec to avoid amiodarone (now discontinued)
Cards following closely, given interim improvement holding on RHC for now
TTE 12-11: LVEF 55-60%, stage III DD, no significant valvular disease
Eventual DCCV
Chest CT s/c 12-06, reviewed, diffuse pneumonitis with scattered denser areas on R field and patchy pneumonitis areas at MANUEL, bilateral dependent moderate PF and compressive L base atelectasis
Suspect progressive changes by comparing to adm CXR
Initiated empiric systemic CS (MP 40 mg IV q6) on 12-06, down to 40 mg IV q12 on 12-12
Tried BPAP trial at 16/8 with fiO2 to keep POx>=92%, could not tolerate BPAP evening upon initiation at IMU
Tolerating HFNC at 1.0/50-55L, POx low 90s
Weaning HFNC, down to 0.5/50L, POx 93% on 12-11
Currently on O2 NC 2L, POx 94% as of 12-12
Dns prn
CXR portable 12-08, some improvement in R field pneumonitis, increased pulm vasc congestion at L field
CXR 12-11: moderately improved bilateral pneumonitis
Keep NPO except meds in meantime
Seen by Speech, VSE 12-04 showed mild O and mild-mod P dysphagia
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
Abd distension and mild pain
AXR with adynamic ileus
GI consulted, acute adynamic ileus, NGT placed --> monitor output
LEATHA
Hypernatremia since 12-09
FW deficit 4.5 L
Started hypotonic saline initially, changed to D5 100 mL/h on 12-11
Holding diuretic
Renal following
Was on rivaroxaban as outpatient (AFib)Continue AC --> heparin gtt started on 12/09 since he was not getting OAC
IV hep held 12-12 due to GIB
Worsening peripheral access: PICC ordered 12-11
IV team attempted both UEE, unable to advance wire/cath (bilateral PMs)
R brachial PICC placed 12-11
Full code status
Prognosis remains guarded in view of multiple comorbidities and inpatient clinical course
D/w MDT
D/w Mrs Morales at bedside 12-11, all questions answered. Updated at bedside 12-12
Diagnostic tests:
Chest/Abd XR 12-09-2023:
Relatively stable appearance of the chest. Extensive diffuse bilateral interstitial and airspace opacity. Nasogastric tube extends into the stomach. No pneumothorax.
Examination of the abdomen demonstrates opaque contrast material within the colon, without significant change or distal propagation compared to the prior examination. As before, contrast is predominantly within the ascending colon, transverse colon,
and proximal to mid descending colon. This has not extended any further distally. However, no colonic dilatation to suggest obstruction.
Relative paucity of small bowel gas.
No suspicious air-fluid levels.
No free air.
CXR 12-05-23, c/w and 11-21-23. Baseline with no infiltrates. Fillms this adm with new onset R sided infiltrate and mild pulm vasc congestion on L. Last adm with new L sided PPM (already had L sided PPM)
Subjective Data
-
Date of Service:
Date of Service: December 12, 2023
Chief Complaint: Pulmonary Follow Up
Subjective:
Noted progressive improvement in O2 requirement
MS worsening since yesterday
Slow progressive drop in Hgb
Liquid stools heme positive
Review of Systems
General: Other (lethargic)
Objective Data
Data Reviewed
Vital Signs / I&O / Oxygen:
Vital Signs
Temp Pulse Resp BP Pulse Ox
97.8 F 85 24 104/71 92
12/12/23 03:41 12/12/23 06:00 12/12/23 06:00 12/12/23 06:00 12/12/23 06:00
Intake and Output
12/11/23 12/12/23 12/13/23
06:59 06:59 06:59
Intake Total 2270 / 2360 3008.0 / 3008.0
Output Total 2400 / 2400 2275 / 2275
Balance -130 / -40 733.0 / 733.0
SaO2 92
Nasal Cannula flow liters per 2
minute
Physical Exam
General: Respiratory Distress
HEENT: Normocephalic and Anicteric
Cardiovascular: Irregular Rhythm (Irregularly irregular), Peripheral Edema (trace LE edema b/l) and Calf Tenderness (n)
Respiratory: Wheeze (n), Crackles (posteriorly bibasilar), Rhonchi (neg), Accessory Resp Muscle Use (mild) and Stridor (n)
GI: Soft, Non Distended, Non Tender, NG Tube and Other (hypoactive)
Neurology: Lethargic
Skin: Dry
Labs/Micro/Reports
Lab Data
12/12/23 03:04
Laboratory Results
12/12/23
03:04
APTT 147.6 H
--- NOTE | 2023-12-12 08:01 | W.PN.CD ---
Today's Communication / Plan
-
CXR improving and on 2 liters. continued tx of pneumonia as per pulmonary and will remain off amiodarone
Concerning change in mental status compared to last week. May be mulifactorial.
- correct metabolic abnormalities
- consider Head CT
LEATHA - patietniwth Cr 2.1 and hypernatremia - GI volume losses. -
- IVF per nephrology
drop in hb for unclear reason -
- repeat Hb now
- hol dheparin until resulted
Impression / Plan
-
Impression: 78M with recent NSTEMI -> CABG (11/16) & right sided PPM. He initially felt better, but developed dyspnea and resp fatigue, needed Tx to IMU
PMH: paroxysmal atrial flutter, SSS / AV block s/p PPM, HTN/HLD
Plan
Dyspnea/Pna/pneumonitis
-pneumonia or pneumonitis, started unilateral on R and then progressed to bilat
-Discontinued amiodarone. Treating w Meropenem, and steroid.
-initially Rx w lasix too - but this has been held due to azotemia/worsening renal fn
-CXR 12/12/23 with improvement
- down to 2 liters
.
CAD s/p recent CABG (11/16/23)
preserved LVEF
recurrent afib - see below
Aflutter, paroxysmal
-Currently in coarse A-fib. Continue with rate control (metoprolol 12.5/day) and anticoagulation .
- Xarelto held. now on heparin
-Patient with suspected pneumonia but with pulmonary findings and tenuous respiratory status we discontinued amiodarone and continue with rate control right now.
-CHADS2-Vasc = 4 (HTN, Age x2, Vascular Disease). Xarelto stopped due to por po - now on Iv heparin
-no short term plan to DCCV; but eventually will plan for DCCV
mental status. soignificant change from last wek. patient opens eyes and responds that he hears me tries to say hello but very weak voice
- may be due to combinationof factors
- metabolic abnormalities, hyponatermia
- med
- Nonfocal but woudlrecommend CT
LEATHA - continues to rise. off directic. still with GI loss. Patietn also with hypernatremia.
- IVF as directed by Nephrology
anemia - check HB now. Hold heparin until resulted.
Sick sinus syndrome / AV block
-R sided PPM set to VVI 40 bpm. Occluded venous system on the left shoulder with attempted venoplasty with only limited success.
-New right sided conduction system pacemaker implanted on 11/20/23.
HTN: Stable/controlled on current medication regimen.
Mixed hyperlipidemia -elevated LFT - hold statin statin amiodarone also held as noted above
Prior pituitary surgery
Legally blind
Remains critically ill
Subjective: Patient now on high flow O2 in ICU currently comfortable at rest no chest pain.
DATA:
Intraoperative KEVIN, 11/16/2023:
Overall LVEF is approximately 60% with no RWMA.
Moderate mitral regurgitation.
Mild tricuspid regurgitation.
Cardiac Catheterization, 11/10/2023:
Left Main: Normal
LAD: Tandem 50% ostial and 40% proximal LAD stenoses.� There is 30% mid LAD stenosis.� The major diagonal branch has 60% proximal to mid stenosis.
Circumflex: 90% ostial circumflex stenosis.� There is 40% mid circumflex stenosis.� OM1 is very large with 70% mid stenosis.� OM 2 is a small to medium sized bifurcating vessel with 60% ostial stenosis.
RCA: 50% mid RCA stenosis.� The RCA has otherwise mild diffuse disease.� The acute marginal branch supplies the distal PDA territory.� There is no clearly visible PDA and the posterolateral branches are small.
.
Physical Exam
Vital Signs/Labs
Vital Signs
Temp Pulse Resp BP Pulse Ox
97.8 F 85 24 104/71 92
12/12/23 03:41 12/12/23 06:00 12/12/23 06:00 12/12/23 06:00 12/12/23 06:00
12/11/23 12/12/23 12/13/23
06:59 06:59 06:59
Actual Weight 97.4 kg 94.5 kg
12/12/23 03:04
APTT 147.6 Sec (23.4-35.0) H 12/12/23 03:04
Magnesium 2.3 mg/dl (1.6-2.3) 12/02/23 14:57
Free T4 1.00 ng/dl (0.78-2.19) 12/10/23 03:10
12/02/23 12/03/23 12/10/23
14:57 09:22 03:10
Inn-F-Hmttuxefrej Pept 5020 [id number]
Physical Exam
Constitutional: No acute distress
EENT: Anicteric
Cardiovascular: Rhythm/rate is irregular
Respiratory: Wheeze Absent, Rhonchi Absent and Other (decreaseed at bases / effort)
GI: Soft, Non tender and Normal bowel sounds
Neuro/Psych: Alert and Oriented
Other: Skin and Cardiac Device Site
Data Reviewed
-
Date of Service: December 12, 2023
Medical Decision Making: Reviewed Test Results
Echo: Report Reviewed by me
Medical Tests (PFT, Pathology etc): Report Reviewed by me
Labs: Labs Reviewed by me
[2023-12-12 09:02] LABS: Hemoglobin 6.9 g/dL (13.0-18.0)
--- NOTE | 2023-12-12 09:41 | PTCARENOTE ---
Patient received with assessment as noted. AM Hgb 7.2 with results of 0830 follow up 6.9. Aneesh Moreira and Riana aware. Heparin gtt held at 0830 as per orders. Type and cross sent. 2 units PRBC's for transfusion ordered. Consent obtained by
. CT-Head done with results pending. Continues slightly hypotensive but stable. Sao2 >94% on 2lnc. Will continue to monitor closely.
--- NOTE | 2023-12-12 09:46 | W.PN.NEPH.PH ---
Today's Communication / Plan
-
follow BMP
Assessment/Plan
-
Assessment
-diffuse PNA
-hypoxic respiratory failure
-LEATHA
-hypernatremia
-metabolic alkalosis
-anemia
-Afib/flutter
-HFpEF
-HTN
-elevated LFTs
Plan
-D5W 100ml/hr to continue
-serial BMP
-urine studies consistent with volume depletion
-transfuse PRBC
-high concern for GIB
-LEATHA a function of volume loss
-critical care time 31 minutes
-
-
Date of Service: December 12, 2023
CC / HPI / ROS
-
Chief Complaint:
hypernatremia
History of Present Illness:
Na down to 149 with D5W
on less O2
BP marginal
Hgb dropped to 6.9
BUN up to 129
LEATHA/Cr up to 2.1
Review of Systems:
lethargic, barely nods head, less consistently shakes head
does not move arms/legs
Labs
-
Labs:
WBC 25.4 10^3/uL (4.8-10.8) H 12/12/23 03:04
RBC 2.35 10^6/uL (4.70-6.10) L 12/12/23 03:04
Plt Count 361 10^3/uL (130-400) 12/12/23 03:04
Sodium 149 mmol/L (135-145) H 12/12/23 03:04
Potassium 4.4 mmol/L (3.5-5.1) D 12/12/23 03:04
Chloride 108 mmol/L (98-107) H 12/12/23 03:04
Carbon Dioxide 39 mmol/L (22-30) H 12/12/23 03:04
BUN 129 mg/dl (9-20) H* 12/12/23 03:04
Creatinine 2.1 mg/dL (0.7-1.3) H 12/12/23 03:04
eGFR 31.82 12/12/23 03:04
Glucose 228 mg/dl (70-99) H 12/12/23 03:04
Calcium 7.5 mg/dl (8.4-10.2) L 12/12/23 03:04
Cfl-E-Ortfxramobl Pept 6700 pg/ml 12/10/23 03:10
Albumin 2.2 g/dl (3.5-5.0) L 12/12/23 03:04
Physical Exam
-
Vital Signs:
Vital Signs
Temp Pulse Resp BP Pulse Ox
97.8 F 85 24 104/71 93
12/12/23 08:08 12/12/23 06:00 12/12/23 06:00 12/12/23 06:00 12/12/23 08:00
Cardiovascular:: Regular rate and rhythm
Respiratory:: Bilateral: Coarse
Lung Excursion:: Normal
Abdomen:: Nontender and Soft
Bowel Sounds:: Decreased
Extremity Edema:: None: Bilateral:
--- NOTE | 2023-12-12 10:01 | W.PN.ID1 ---
Date of Service
Date of Service: December 12, 2023
Today's Communication
Continue meropenem.
Check stool for C. diff.
Assessment / Plan
# Acute hypoxemic respiratory failure due to PNA and heart failure; decreasing 02 requirement
# Aspiration pneumonia.
- blood cx neg
-12/11 repeat CXR shows improvement of interstitial prominence bilaterally
- Continue meropenem (d5 of 7)
# Leukocytosis
-Continues to trend up
- on steroid
- Diarrhea - check stool for C. diff.
# Acute elevated LFTs - resolving
#LEATHA
- Renally adjusted abx dosing.
# Acute drop in H/H
- ? UGIB
# s/p recent CABG x 4 (11/16/2023)
Prognosis guarded.
#Additional Past Medical History:
Hypertension
Hyperlipidemia
Hypothyroidism
Hx cardiac arrest s/p left chest PPM
Right chest PPM implant 11/20/23
CAD s/p CABG x 4 (11/16/23)
HFpEF
Pituitary tumor (benign) status post resection
TIA
Chronic LE edema
cholecystectomy
����������������������������������������������������������
Chief Complaint
-: Leukocytosis and Pneumonia
Vital Signs / Physical Exam
Vital Signs
Vital Signs
Temp Pulse Resp BP Pulse Ox
97.8 F 85 24 104/71 93
12/12/23 08:08 12/12/23 06:00 12/12/23 06:00 12/12/23 06:00 12/12/23 08:00
Physical Exam
Constitutional: Acutely Ill
Head: Other (NGT in place with dark reddish brown fluid)
Eyes: No Conjunctival Hemorrhage and Sclera Anicteric
Cardiovascular: Regular Rate and S1/S2
Pulmonary: Clear (anterior chest)
Gastrointestinal: Soft, Non Tender, Non Distended and Other (FMS with liquid brown stool)
Extremities: Edema
Neurological: Other (Lethargic)
Lines: PICC
Objective Data
Lab Data
APTT 147.6 Sec (23.4-35.0) H 12/12/23 03:04
Estimated Creat Clear 31 ml/min 12/12/23 03:04
Total Bilirubin 1.1 mg/dl (0.2-1.3) 12/12/23 03:04
AST 35 U/L (17-59) 12/12/23 03:04
ALT 35 U/L (0-50) 12/12/23 03:04
Alkaline Phosphatase 131 U/L (38-126) H 12/12/23 03:04
Most recent labs reviewed.
Micro Results:
12/02/23 15:56 Blood Culture - Final
Blood/Venous No Growth - Final Report
12/02/23 15:56 Blood Culture - Final
Blood/Venous No Growth - Final Report
12/02/23 23:07 Nasal Screen MRSA (PCR) - Final
Nose MRSA not detected - performed by PCR methodology.
12/03/23 10:24 Legionella Urinary Antigen - Final
Urine Negative for Legionella pneumophila Serogroup 1 antigen.
A negative result does not rule out the possiblity of
Legionella infection due to other serogroups or species of
Legionella. Clinical correlation is recommended.
Streptococcus pneumoniae Antigen (M - Final
Negative for Streptococcus pneumoniae antigen.
A negative result does not exclude infection with
Streptococcus pneumoniae. Clinical correlation is
recommended.
12/02/23 14:57 Influenza Types A & B (CLEO) - Final
Nasal Swab Negative for Influenza A & B, NAAT
Negative results must be combined with clinical observations
and patient history.
Nucleic Acid Amplification test (NAAT)performed on the
[employer] platform.
11/18/23 CXR: Severe bilateral pneumonia with progression in the left lung compared to the chest radiograph from 12/05/2023.
12/08/23 ABD US: Surgically absent gallbladder. No bile duct dilatation.
12/06/23 AXR: Moderate distention of the stomach, colon, and rectum with air and contrast material which is most likely secondary to an acute adynamic ileus.
12/06/23 CT chest wo IV contrast: There is groundglass pattern throughout both lungs, right much worse than left with focal areas of airspace disease predominantly on the right. The pattern is most suggestive of diffuse pneumonia. Moderately large
bilateral pleural effusions.
12/05/23 CXR: Stable extensive right lung pneumonia. Stable post operative changes.
12/02/23 CXR: Significant change in the appearance of the lungs, with new right upper and lower lung zone pneumonia and parapneumonic effusion.
12/11/23 CXR: �Interstitial prominence bilaterally, improved compared to prior chest x-ray, suggestive of improved pulmonary edema. Hazy opacity within the right upper and left lower lung zones, which may represent pneumonia or alveolar pulmonary
edema. Haziness of left hemidiaphragm. Small left pleural effusion may be present, consider PA and lateral views when possible.
--- NOTE | 2023-12-12 10:33 | W.PN.GI.CBS2 ---
Addendum entered and electronically signed by Angi Díaz MD 12/12/23 16:03:
I saw and examined the patient.
The TOOL CLERK or PA's note was reviewed and I agree with the note.
Comment: Noted acute drop in hemoglobin and dark coffee-ground material in the NG canister early this morning.
As per , no previous similar episodes, no history of ulcer disease. No NSAID use, no alcohol use. Patient currently on steroids.
Rule out esophagitis, ulcer disease, angiectasia versus other
N.p.o., agree with Protonix drip.
Monitor H&H and transfuse as needed.
Slightly lethargic but able to respond to commands.
Will continue to monitor NG output, keep NG to low intermittent suction only.
Currently receiving 2 units of packed red blood cells.
Monitor electrolytes, especially sodium.
Creatinine rising, nephrology on board.
Plan for upper endoscopy once respiratory status stable and okayed by cardiology. Likely tomorrow morning.
If there is any overt bleeding again, will do urgent endoscopy
Discussed with
Original Note:
Today's Communication / Plan
-
overall concern for upper GI bleeding with drop in hbg 9 to 6.9 with dark NGT drainage, rise in BUN etc. steroid use -- PUD, gastritis, ectasia, mass vs other
reviewed with can consider EGD at some point but currently with decreased mental status and resp status hold unless aggressive bleeding as risk of intubation with resp effort with anesthesia
cont supportive care with transfusion, heparin hold (held 130 am), and monitoring output
add PPI gtt
cont NGT with drainage and continued decompression with recent ileus but clinical improvement with some stools and non distended abd
await follow up imaging
cont to correct Na with ileus
OP colonoscopy after discharge when stable with hx polyps
cont NPO
will follow closely
all questions answered
Assessment / Plan
-
78 year old male who had a recent NSTEMI, CABGx4 1/ and pacemaker, developed cough, SOB, weakness while at [facility] and was admitted to for healthcare-acquired pneumonia/pneumonitis on 12/02/2023. GI is consulted earlier in admission with
concern for ileus. Now noted with drop in hbg from 9 range to 6.9 with heme + stools with heparin gtt. Also noted with rise in BUN form low of 17 after admission to 129 with rise in creat. + occasional NSAID use prior to November admission.
IMPRESSION / PLAN:
-black stools
-anemia
-concern for ileus on admission s/p NGT decompression
-LEATHA
-hypernatremia
-hx colon polyps
-recent NSTEMI, CABGx4 1/ and pacemaker
other med problems:
-CAD
-non STEMI
-pacer/SSS
-afib
-TIA
-fatty liver
-cholecystectomy
legally blind
PLAN:
overall concern for upper GI bleeding with drop in hbg 9 to 6.9 with dark NGT drainage, rise in BUN etc. steroid use -- PUD, gastritis, ectasia, mass vs other
reviewed with can consider EGD at some point but currently with decreased mental status and resp status hold unless aggressive bleeding as risk of intubation with resp effort with anesthesia
cont supportive care with transfusion, heparin hold (held 130 am), and monitoring output
add PPI gtt
cont NGT with drainage and continued decompression with recent ileus but clinical improvement with some stools and non distended abd
await follow up imaging
cont to correct Na with ileus
OP colonoscopy after discharge when stable with hx polyps
cont NPO
will follow closely
all questions answered
Subjective
Subjective
Date of Service: December 12, 2023
12/11 brown/black stool, NPO with NGT with dark drainage
Objective
Data Reviewed
Laboratory Data:
Laboratory Results
APTT 147.6 Sec (23.4-35.0) H 12/12/23 03:04
Magnesium 2.3 mg/dl (1.6-2.3) 12/02/23 14:57
Total Bilirubin 1.1 mg/dl (0.2-1.3) 12/12/23 03:04
AST 35 U/L (17-59) 12/12/23 03:04
ALT 35 U/L (0-50) 12/12/23 03:04
Alkaline Phosphatase 131 U/L (38-126) H 12/12/23 03:04
Vital Signs and I&O:
Vital Signs
Temp Pulse Resp BP Pulse Ox
97.8 F 91 26 100/79 94
12/12/23 08:08 12/12/23 10:00 12/12/23 10:00 12/12/23 10:00 12/12/23 10:00
I&O
12/11/23 12/12/23 12/13/23
06:59 06:59 06:59
Intake Total 2270 / 2360 3008.0 / 3116.0 480 / 480
Output Total 2400 / 2400 2275 / 2275
Balance -130 / -40 733.0 / 841.0 480 / 480
Physical Exam
Physical Exam
HEENT: Anicteric and Moist mucous membranes
Cardiology: Normal Sinus Rhythm
Pulmonary: Other (decreased with some mild gasping with breathing )
Rectal: Other (dark brown heme + stool in rectal tube )
Neuro: Other (sleepy but arousable to some stimuli-- per family and nursing staff some improvement since 2 days ago)
[2023-12-12 10:56] LABS: Calcium 7.7 mg/dl (8.4-10.2); Carbon Dioxide 37 mmol/L (22-30); Chloride 101 mmol/L (98-107); Estimated Creatinine Clearance 30 ml/min; Glucose 246 mg/dl (70-99); Potassium 4.3 mmol/L (3.5-5.1); Sodium 148 mmol/L (135-145); eGFR 30.09
--- NOTE | 2023-12-12 11:16 | CHAP ---
Msgr. Madhav Ferguson of [facility] in [place] came and gave Mr. Morales the Apostolic Pardon at his request.
[2023-12-12 11:28] LABS: Blood Urea Nitrogen 138 mg/dl (9-20)
--- NOTE | 2023-12-12 11:29 | PTOTSP ---
Chart reviewed and spoke with RN. Patient not medically appropriate to participate at this time.
Will discharge patient at this time. Please re-consult when medically appropriate to participate.
[2023-12-12] MEDS: PROTONIX IV 80 MG IV (11:53)
[2023-12-12] MEDS: NSS (PRESERVATIVE FREE) 20 ML IV (11:54)
[2023-12-12 11:58] LABS: Glucose - Point of Care 271 mg/dl (70-99)
[2023-12-12] MEDS: PROTONIX 100 IV ×2 (12:01→21:58)
[2023-12-12] MEDS: NOVOLOG FLEXPEN-MODERATE RESISTANCE 5 UNITS SC ×2 (12:06→23:21)
--- NOTE | 2023-12-12 13:47 | W.PN.HOSP.TC ---
Today's Communication/Plan
-
monitor vitals
see plan
transfuse blood
monitor hgb
head CT
cw abx
cw PPI gtt
Prognosis guarded
Assessment / Plan
Assessment / Plan
Healthcare acquired pneumonia with recent hospitalization and been in a fpc home
Acute hypoxic respiratory failure secondary to pneumonia
Managed with broad-spectrum antibiotic,
Was on Zosyn, due to elevated LFTs now switched to cefepime/Flagyl. ID following, now on Meropenem
remains NPO
Cough medication
Tylenol as needed
Sputum� culture
Monitor vital sign
xray with possible pneumonia and parapneumonic effusion -repeat x-ray with pneumonia. CT chest 12/07 with groundglass pattern throughout both lungs consistent with diffuse pneumonia. Pulmonary following. Now on high flow.
COVID, flu, Legionella, strep neg
Monitor leukocytosis; now on methylprednisilone
�VSE 12-04 showed mild O and mild-mod P dysphagia; speech to come again once patient mentation improves
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
suspect some wax and wane is 2/2 ongoing aspiration
Suspect TME multifactorial with sepsis,GI bleed
monitor head CT pending
appears a bit more awake and responsive today
Acute on Chronic hypernatremia
cw d5w
stopped the Lasix and started hypotonic saline
Cardiology following. Holding off on right heart cath for now
Nephrology following
Adynamic ileus
Suspected acute upper GI bleed, acute blood loss anemia
likely also exacerbated by heparin
hgb 6.9; trasnfuse prbc; GI following
NG tube in place with large amount of NG aspiration; now black
cw PPI gtt
Moderate protein caloric malnutrition
History of the hypopituitarism and hypothyroidism while T4 is little high and T3 is low.
Coronary artery disease s/p recent CABG
Sick sinus syndrome status post pacemaker
A-fib/A flutter, paroxysmal
currently in A. Fib. heparin now on hold
Chronic lower extremity edema, mild while he is on amlodipine
Hypertension.
Acute on chronic HFpEF; now appears dry
Orthostatic hypotension
Hypokalemia
Resolved
LEATHA
nephrology following
monitor urine output
was on IV lasix, will stop Lasix. probnp elevated. per echo on last admission, stage 2 diastolic dysfunction. suspect Acute on chronic HFpEF
holding PO metoprolol; cw IV lopressor
Amiodarone stopped by cardiology. Continue to monitor
hold amlodipine
Elevated LFTs
Monitor
apply TEDS for orthostatic hypotension
History of the hypopituitarism and hypothyroidism�
Levothyroxine decreased to 150. Patient to get repeat TSH with free T4 in 4 to 6 weeks outpatient
should check TSH/T4 currently in pt unable to take po, consider SQ based on levels
started IV thyroid
testosterone on hold
PT OT and assess functional status
CODE STATUS full code
SCD's
Spoke in length with spouse at bedside 12/11. Discussed CODE STATUS and she currently wants patient to be full code. She is aware that prognosis appears guarded
I spent a total of 55 minutes with the patient or on the floor. More than 50% of this time involved counseling and coordination of care.
General: Well Developed, Well Nourished and No Apparent Distress (on high flow oxygen supplement)
HEENT: Normocephalic, Atraumatic and Moist Mucous Membranes
Respiratory: Rales (bibasilar rales) and Other (coarse BS); Negative Wheezes
Cardiac: S1/S2 and Irregular Rhythm
GI: Soft, Nontender and Distended; Negative Normal Bowel Sounds (absent BS)
Musculoskeletal: No Clubbing, No Cyanosis and No Edema
Neuro: Awake, Alert and Oriented
Anticipated Discharge: > 48 hours
Subjective/Interval History
-
Date of Service: December 12, 2023
Hemoglobin low today
Objective Data
-
Labs:
Laboratory Results
12/12/23 12/12/23 12/12/23
03:04 08:29 08:29
WBC 25.4 H
Hgb 7.2 L D 6.9 L*
Hct 22.1 L 22.0 L Cancelled
Plt Count 361
APTT 147.6 H
Sodium 149 H
Potassium 4.4 D
Chloride 108 H
Carbon Dioxide 39 H
BUN 129 H*
Creatinine 2.1 H
Glucose 228 H
Calcium 7.5 L
Total Bilirubin 1.1
AST 35
ALT 35
Alkaline Phosphatase 131 H
12/12/23 12/12/23 12/12/23
10:12 10:45 13:31
WBC
Hgb Cancelled Pending
Hct Cancelled Pending
Plt Count
APTT Cancelled
Sodium 148 H
Potassium 4.3
Chloride 101
Carbon Dioxide 37 H
BUN 138 H*
Creatinine 2.2 H
Glucose 246 H
Calcium 7.7 L
Total Bilirubin
AST
ALT
Alkaline Phosphatase
12/12/23 12/12/23
15:00 22:00
WBC
Hgb Pending
Hct Pending
Plt Count
APTT
Sodium Pending
Potassium Pending
Chloride Pending
Carbon Dioxide Pending
BUN Pending
Creatinine Pending
Glucose Pending
Calcium Pending
Total Bilirubin
AST
ALT
Alkaline Phosphatase
Vital Signs:
Vital Signs
Temp Pulse Resp BP Pulse Ox
97.8 F 76 17 95/63 97
12/12/23 11:20 12/12/23 13:30 12/12/23 13:30 12/12/23 13:30 12/12/23 13:30
I&O
12/11/23 12/12/23 12/13/23
06:59 06:59 06:59
Intake Total 2270 / 2360 3008.0 / 3116.0 830 / 830
Output Total 2400 / 2400 2275 / 2275 250 / 250
Balance -130 / -40 733.0 / 841.0 580 / 580
[2023-12-12] MEDS: NSS 500 IV (13:52)
--- NOTE | 2023-12-12 13:59 | CM ---
CM following re: discharge planning.
Reviewed pt's chart, met with pt and pt's spouse Honey at bedside.
Pt remains IMU level of care Pt currently requires 2L NC of O2, continue supportive care.
PT and OT evaluations pending.
Pt is admitted to from [facility] and pt's spouse stated she does not want pt returns back to [facility] at discharge. Pt's spouse requested [facility] acute rehab in [place]. Pt's spouse stated she and the pt live very close to
[facility] in [place]. Pt's spouse stated she understands the acute rehab has different criteria for admission and she asked to try.
CM will make a referral to [facility] rehab in [place] when clinically appropriate. Pt failed SNF level of care and it can be a reason to send a referral to higher level of care that is acute level of rehab.
[facility] rehab phone: [phone]; .
Pt will need updated PT/OT/PM&R evaluations
D/C plan: [facility] rehab in [facility] when medically stable. Alterative plan: pt's spouse made it very clear she will not send her to a SNF.
CM will follow with discharge plan updates as hospitalization progresses
[2023-12-12 14:01] LABS: Hematocrit 21.4 % (39.0-52.0)
[2023-12-12 14:07] LABS: Hemoglobin 6.5 g/dL (13.0-18.0)
--- NOTE | 2023-12-12 16:12 | PTCARENOTE ---
Addendum entered by Willy Flores RN 12/12/23 16:49:
Heparin gtt held at 0830 as per orders and Protonix gtt started at 1000 as per orders.
Original Note:
Patient received in AM with assessment as noted. Continues slightly more animated than on 12/11 but still very lethargic. Nods to simple questions and follows simple directions. Bilateral mitts maintained to prevent the patient from removing his NG
tube again. Controlled A-fib on monitor with intermittent V-pacing. Afebrile. Continues hypotensive with B/P's 85-100's/50's. 500 ml NSS bolus given at 1350 with a slight increase in B/P's noted. 030 Hgb 7.2 with 0830 follow up result of 6.9. Result
1330 Hgb 6.5. Type and cross sent and consent obtained by . Antibodies noted during type and cross which delayed the availability of PRBC's. After 2 units of PRBc's were declared to compatible blood bank was called to check about any
premedication requirements and they said that no premedication was required. First unit PRBC's started at 1425 and still transfusing with stable vital signs and no evidence of transfusion reaction. Lungs decreased in bases bilaterally otherwise CTA.
Sao2 97% on 2lnc. NPO. Small amount of liquid black stool draining via rectal trumpet. Condom catheter draining yellow urine. into visit and updated to patient condition. Patient currently in bed with side rails up.
[2023-12-12] MEDS: LEVOTHROID 75 MCG IV (17:50)
[2023-12-12 17:55] LABS: Calcium 7.2 mg/dl (8.4-10.2); Carbon Dioxide 40 mmol/L (22-30); Chloride 105 mmol/L (98-107); Estimated Creatinine Clearance 27 ml/min; Glucose 208 mg/dl (70-99); Potassium 4.6 mmol/L (3.5-5.1); Sodium 146 mmol/L (135-145); eGFR 27.11
[2023-12-12 18:02] LABS: Glucose - Point of Care 222 mg/dl (70-99)
[2023-12-12 18:06] LABS: Blood Urea Nitrogen 145 mg/dl (9-20)
--- NOTE | 2023-12-12 20:30 | PTCARENOTE ---
Addendum entered by Shruthi Cardona RN 12/12/23 21:44:
bilat mitts on since pt pulls at tubes
Original Note:
Rec'd pt resting in bed, lethargic, flat affect, nods head occas to questions asked, TERRAZAS weakly to command, pupils sluggish, AFIB/ V paced, Bp stable, weak distal pulses, skin warm/dry, O2 2 liters, sat 99, lungs decr in bases, + bowel sounds,
rectal trumpet leaking, draining dark brown liquid stool, c dif sent, R nres lavon to low cont wall suction draining brown liquid, irrigated q4h w/ 30 tap h20, no vomiting, # 21 condom cath on- voiding yellow urine, Prbc infused at 2030, prot gtt at
10ml/hr
[2023-12-12] MEDS: D5W IV (20:49)
[2023-12-12 22:06] LABS: Hematocrit 29.3 % (39.0-52.0); Hemoglobin 9.6 g/dL (13.0-18.0)
[2023-12-12 23:29] LABS: Glucose - Point of Care 250 mg/dl (70-99)
[2023-12-13] VITALS (25 sets, daily range): BP systolic 102–226; BP diastolic 60–205; BMI 29.3
--- NOTE | 2023-12-13 | PTCARENOTE ---
sys reviewed, changes noted, CHG bath done, linens changed
--- NOTE | 2023-12-13 04:07 | PTCARENOTE ---
sys reviewed, changes noted
[2023-12-13 04:09] LABS: % Basophils 0.2 % (0-2); % Immature Granulocytes 2.1 % (0-0.5); % Lymphocytes 4.1 % (20.5-51.1); % Monocytes 2.8 % (1.7-9.3); % Neutrophils 90.8 % (42.2-75.2); Absolute Basophils 0.1 10^3/uL (0-0.2); Absolute Immature Granulocytes 0.6 10^3/uL (0-0.05); Absolute Lymphocytes 1.2 10^3/uL (1.2-3.4); Absolute Monocytes 0.8 10^3/uL (0.1-0.6); Absolute Neutrophils 25.8 10^3/uL (1.4-6.5); Hematocrit 29.2 % (39.0-52.0); Hemoglobin 9.5 g/dL (13.0-18.0); Mean Corp Hgb Conc. 32.5 g/dL (33.0-37.0); Mean Corpuscular Hgb 30.1 pg (27.0-31.0); Mean Corpuscular Volume 92.4 fL (80.0-94.0); Mean Platelet Volume 10.7 fL (7.4-10.4); Nucleated Red Blood Cells % 1.8 % (-); Platelet Count 279 10^3/uL (130-400); Red Blood Cell Count 3.16 10^6/uL (4.70-6.10); Red Cell Dist. Width 17.1 % (11.5-14.5); White Blood Cell Count 28.4 10^3/uL (4.8-10.8)
[2023-12-13 05:13] LABS: ALT (SGPT) 31 U/L (0-50); AST (SGOT) 32 U/L (17-59); Albumin 2.2 g/dl (3.5-5.0); Alkaline Phosphatase 109 U/L (38-126); Blood Urea Nitrogen 143 mg/dl (9-20); Calcium 7.5 mg/dl (8.4-10.2); Carbon Dioxide 37 mmol/L (22-30); Chloride 103 mmol/L (98-107); Estimated Creatinine Clearance 30 ml/min; Glucose 271 mg/dl (70-99); Sodium 147 mmol/L (135-145); Total Bilirubin 1.4 mg/dl (0.2-1.3); Total Protein 4.6 g/dl (6.3-8.2); eGFR 30.09
[2023-12-13] MEDS: NOVOLOG FLEXPEN-MODERATE RESISTANCE 5 UNITS SC ×2 (05:24→11:37)
[2023-12-13] MEDS: STERILE WATER FOR INJECTION 10 ML IV ×3 (05:25→21:48)
[2023-12-13] MEDS: MERREM 500 MG IV ×3 (05:25→21:48)
[2023-12-13 05:32] LABS: Glucose - Point of Care 299 mg/dl (70-99)
[2023-12-13] MEDS: D5W 1000 IV ×2 (06:26→16:55)
--- NOTE | 2023-12-13 07:26 | W.PN.PUL3 ---
Today's Communication / Plan
-
O2
CS
H/H, UGED pending
Assessment
-
Assessment:
Mr Madhav Morales is a 78/M adm 12-02 from [place] where he was rehabilitating after sustaining MSTEMI for which he received CABG at on 11-16-23 (also received R sided PPM for AVB), with 4 d h/o productive cough of greenish sputum, chills and
dyspnea. At ER, R sided infiltrate, started on vancomycin/cefepime, then changed to zosyn since 12-03. Increasing O2 requirements led to pulm consultation 12-06
Impression:
Bilateral pneumonia/pneumonitis R>>L (suspect component of inflammatory pneumonitis)
Bilateral dependent pleural effusions and compressive L base atelectasis
Lethargy
Worsening anemia
Heme positive liquid stools
Leukocytosis
Persistent moderate anemia
Transaminitis - improving
Elevated BNP
Normal PCT 12-03
Dysphagia: mild oral and mild-moderate pharyngeal
Ileus s/p NGT
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
CAD s/p CABGx4 and PPM (AVB) early Nov 2023
PAFib on rivaroxaban, L sided PPM in past, on amiodarone
HTN
HLD
Gout
Hypothyroidism
Diastolic dysfunction
Moderate MR
Chronic hyponatremia
Pituitary tumor s/p resection
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
R sided blindness
TIA
Fatty liver
Cholecystectomy
Nonsmoker
Plan:
Transferred to IMU level of care due to worsening resp failure 12-06
Blood cxs, MRSA screening, COVID/flu/Leg/Strep negative
No sputum cx available yet, ordered, not yet collected
On atbs since adm (zosyn)
Noted ^AST, ALT, AP, TB, could have been secondary to zosyn and/or HF
ID consulted: atbs changed to cefepime/metronidazole on 12-06 --> then changed to meropenem on 12/08, D5/7 on 12-12
Interim worsening decline in MS, out of proportion to hypernatremia for which D5W was initiated 12-11
Some spontaneous improvement in MS in later am 12-12
Change in MS multifactorial: acute anemia, hypotension, hypernatremia, ICU environment
Progressive drop in Hgb but then significant drop 12-12 from 9.3 to 7.2, liquid dark brown stools heme positive
On IV heparin since 12-09 while waiting to resume rivaroxaban, IV hep held 12-12 at 8: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
Rechecked Hgb, confirmed severe anemia
consented for blood transfusion
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
When detected, there is usually no requirement for selection of Sommer a -ve donor RBCs, in fact, 92% of donor unites are Sommer a -ve.
Above [facility] and with Mrs Morales in presence of NATASHA Arreguin, given the circumstances of severe anemia and urgent need for blood transfusion, Mrs Morales consented to proceed to best matching available units at
Transfuse 2U PRBCs, Hgb improved from 6.5 to 9.6
GI reevaluation appreciated, dark CG material in NG, dark stools which are heme positive, not for UGED for now but following closely
AXR 12-12 with no free air or ileus
Protonix gtt
Scheduled diuretics were on hold however then was back on 20 mg IV Lasix since 12/07 --> held due to worsening Cr
Though no suspected amiodarone toxicity, given significant changes on chest CT will be rec to avoid amiodarone (now discontinued)
Cards following closely, given interim improvement holding on RHC for now
TTE 12-11: LVEF 55-60%, stage III DD, no significant valvular disease
Eventual DCCV
Chest CT s/c 12-06, reviewed, diffuse pneumonitis with scattered denser areas on R field and patchy pneumonitis areas at MANUEL, bilateral dependent moderate PF and compressive L base atelectasis
Suspect progressive changes by comparing to adm CXR
Initiated empiric systemic CS (MP 40 mg IV q6) on 12-06, down to 40 mg IV q12 on 12-12, continue slow weaning as tolerated
Tried BPAP trial at 16/8 with fiO2 to keep POx>=92%, could not tolerate BPAP evening upon initiation at IMU
Tolerating HFNC at 1.0/50-55L, POx low 90s
Weaning HFNC, down to 0.5/50L, POx 93% on 12-11
Currently on O2 NC 2L, POx 94% as of 12-12
Dns prn
CXR portable 12-08, some improvement in R field pneumonitis, increased pulm vasc congestion at L field
CXR 12-11: moderately improved bilateral pneumonitis
Keep NPO except meds in meantime
Seen by Speech, VSE 12-04 showed mild O and mild-mod P dysphagia
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
Abd distension and mild pain
AXR with adynamic ileus 12-06
GI consulted, acute adynamic ileus, NGT placed --> monitor output
LEATHA
Hypernatremia since 12-09
FW deficit 4.5 L
Started hypotonic saline initially, changed to D5 100 mL/h on 12-11
Holding diuretic
Renal following since 12-11
Was on rivaroxaban as outpatient (AFib) --> heparin gtt started on 12/09 since he was not getting OAC
IV hep held 12-12 due to GIB
Worsening peripheral access: PICC ordered 12-11
IV team attempted both UEE, unable to advance wire/cath (bilateral PMs)
R brachial PICC placed 12-11
Moderate insulin aspart SS
Added lantus 12-13
Full code status
Prognosis remains guarded in view of multiple comorbidities and inpatient clinical course, aware
D/w MDT
D/w Mrs Morales at bedside 12-11, all questions answered. Updated at bedside 12-12
Diagnostic tests:
Chest/Abd XR 12-09-2023:
Relatively stable appearance of the chest. Extensive diffuse bilateral interstitial and airspace opacity. Nasogastric tube extends into the stomach. No pneumothorax.
Examination of the abdomen demonstrates opaque contrast material within the colon, without significant change or distal propagation compared to the prior examination. As before, contrast is predominantly within the ascending colon, transverse colon,
and proximal to mid descending colon. This has not extended any further distally. However, no colonic dilatation to suggest obstruction.
Relative paucity of small bowel gas.
No suspicious air-fluid levels.
No free air.
CXR 12-05-23, c/w and 11-21-23. Baseline with no infiltrates. Fillms this adm with new onset R sided infiltrate and mild pulm vasc congestion on L. Last adm with new L sided PPM (already had L sided PPM)
Subjective Data
-
Date of Service:
Date of Service: December 13, 2023
Chief Complaint: Pulmonary Follow Up
Subjective:
Continues on oxygen, has been able to come off high flow nasal cannula has been on standard nasal cannula for the last 48 hours
Mental status somewhat improved today, able to follow some simple commands
Tolerated 2 units packed red blood cells with no issue yesterday
GI following closely, potential upper endoscopy today
Review of Systems
General: Other (limited historian)
Objective Data
Data Reviewed
Vital Signs / I&O / Oxygen:
Vital Signs
Temp Pulse Resp BP Pulse Ox
98.1 F 64 14 110/81 97
12/13/23 03:32 12/13/23 06:00 12/13/23 06:00 12/13/23 06:00 12/13/23 06:00
Intake and Output
12/12/23 12/13/23 12/14/23
06:59 06:59 06:59
Intake Total 3008.0 / 3116.0 2990 / 2990
Output Total 2275 / 2275 1450 / 1450
Balance 733.0 / 841.0 1540 / 1540
SaO2 97
Nasal Cannula flow liters per 2
minute
Physical Exam
General: Respiratory Distress (mild)
HEENT: Normocephalic and Anicteric
Cardiovascular: Irregular Rhythm (Irregularly irregular), Peripheral Edema (trace LE edema b/l) and Calf Tenderness (n)
Respiratory: Wheeze (n), Crackles (posteriorly bibasilar), Rhonchi (neg), Accessory Resp Muscle Use (mild) and Stridor (n)
GI: Soft, Non Distended, Non Tender, NG Tube and Other (hypoactive)
Neurology: Lethargic (intermittently follows simple commands)
Skin: Dry
Labs/Micro/Reports
Lab Data
12/13/23 03:52
Laboratory Results
12/12/23
10:45
APTT Cancelled
Microbiology
12/12/23 19:53 Feces/Stool C. difficile GDH Antigen & Toxins - Final
Negative for toxigenic C.difficile
[2023-12-13] MEDS: PROTONIX 100 IV ×2 (07:40→16:55)
--- NOTE | 2023-12-13 08:43 | PTCARENOTE ---
patient received at 0700 in bed. RT PICC line dressing intact . Protonix infusing at 10ml+D5W 100/hr. patient awake, aroused to voice, able to track. non-verbal. Pupils b/l sluggish reactive to light. A/fib 77. On 2L via nasal cannula POX 100%
frequent periods of apnea while pt asleep; Mitts b/l hand to prevent pt from removing N-J tube. RT N-J tube to low-intermitted suctioning with dark brown output. Rectal trumpt rephased draining dark semi-formed BM will monitor output. condom
catheter intact # 21 draining lexx clear urine. Will monitor urinal output. patient nPO. feet and arms elevated on pillow. HOB elevated . call coats within reach. turned Q 2 hrs. Hgb will be re-checked at 10 am will continue to monitor
--- NOTE | 2023-12-13 08:55 | W.PN.CD ---
Today's Communication / Plan
-
continue to hold Anticoagulation resume when ok with GI
Impression / Plan
-
Impression: 78M with recent NSTEMI -> CABG (11/16) & right sided PPM. He initially felt better, but developed dyspnea and resp fatigue, needed Tx to IMU
PMH: paroxysmal atrial flutter, SSS / AV block s/p PPM, HTN/HLD
Plan
Acute hypoxic respiratory failure in the setting of Pna/pneumonitis
-started unilateral on R and then progressed to bilat
-Discontinued amiodarone. Treating w Meropenem, and steroid.
-initially Rx w lasix too - but this has been held due to azotemia/worsening renal fn
-CXR 12/12/23 with improvement
- down to 2 liters
Aflutter, paroxysmal
-Currently in coarse A-fib. Continue with rate control (metoprolol 12.5/day)
- typically on Xarelto---now off anticoagulation with c/f GIB and anemia.
-Patient with suspected pneumonia but with pulmonary findings and tenuous respiratory status we discontinued amiodarone and continue with rate control right now.
-CHADS2-Vasc = 4 (HTN, Age x2, Vascular Disease).
-no short term plan to DCCV; but eventually will plan for DCCV
GIB:
-holding anticoagulation
-GI managing, will need EGD when MS/Resp status improves
TME: somnolent, BUN>140
LEATHA
- continues to rise. off diuretic. Still with GI loss. Pt also with hypernatremia.
- IVF as directed by Nephrology
anemia - transfused 2units
Sick sinus syndrome / AV block
-R sided PPM set to VVI 40 bpm. Occluded venous system on the left shoulder with attempted venoplasty with only limited success.
-New right sided conduction system pacemaker implanted on 11/20/23.
CAD s/p recent CABG (11/16/23)
HTN: Stable/controlled on current medication regimen.
Mixed hyperlipidemia -elevated LFT - hold statin amiodarone also held as noted above
Prior pituitary surgery
Legally blind
Remains critically ill
Subjective: Improved oxygen requirement. Hgb stable
DATA:
Intraoperative KEVIN, 11/16/2023:
Overall LVEF is approximately 60% with no RWMA.
Moderate mitral regurgitation.
Mild tricuspid regurgitation.
Cardiac Catheterization, 11/10/2023:
Left Main: Normal
LAD: Tandem 50% ostial and 40% proximal LAD stenoses.� There is 30% mid LAD stenosis.� The major diagonal branch has 60% proximal to mid stenosis.
Circumflex: 90% ostial circumflex stenosis.� There is 40% mid circumflex stenosis.� OM1 is very large with 70% mid stenosis.� OM 2 is a small to medium sized bifurcating vessel with 60% ostial stenosis.
RCA: 50% mid RCA stenosis.� The RCA has otherwise mild diffuse disease.� The acute marginal branch supplies the distal PDA territory.� There is no clearly visible PDA and the posterolateral branches are small.
.
Physical Exam
Vital Signs/Labs
Vital Signs
Temp Pulse Resp BP Pulse Ox
97.0 F 68 16 107/70 99
12/13/23 07:45 12/13/23 08:00 12/13/23 08:00 12/13/23 08:00 12/13/23 08:00
12/12/23 12/13/23 12/14/23
06:59 06:59 06:59
Actual Weight 94.5 kg 95.3 kg
12/13/23 03:52
APTT Cancelled 12/12/23 10:45
Magnesium 2.3 mg/dl (1.6-2.3) 12/02/23 14:57
Free T4 1.00 ng/dl (0.78-2.19) 12/10/23 03:10
12/02/23 12/03/23 12/10/23
14:57 09:22 03:10
Uqi-X-Pvbcisklwrj Pept 5020 8689 2500
Physical Exam
Constitutional: No acute distress
Cardiovascular: Rhythm & rate is regular, Pedal edema is absent, JVD pressure is normal, Systolic murmur absent and Diastolic murmur absent
Respiratory: Respiratory effort normal, Lungs clear to auscul., Wheeze Absent, Crackles Absent and Rhonchi Absent
Neuro/Psych: AO x 3
Data Reviewed
-
Date of Service: December 13, 2023
EKG: Other (tele fib rate controlled)
--- NOTE | 2023-12-13 09:03 | W.PN.GI.CBS2 ---
Addendum entered and electronically signed by Angi Díaz MD 12/13/23 16:40:
I saw and examined the patient.
The A&P MECHANIC or PA's note was reviewed and I agree with the note.
Comment: No significant events overnight. No further bloody output in the NG tube aspirate. NG clamped and patient tolerated.
Agree with starting tube feeds low-dose and will increase as tolerated. Will transfuse if needed.
Hold off on upper endoscopy at this time given respiratory status/mental status
Monitor H&H, continue PPI drip
Will follow for now
Original Note:
Today's Communication / Plan
-
overall concern for upper GI bleeding with drop in hbg 9 to 6.9 with dark NGT drainage, rise in BUN etc. steroid use -- PUD, gastritis, NGT trauma, ectasia, mass vs other ( also concurrent LEATHA may be multifactorial)
EGD when stable from neuro and pulm standpoint -- hold today but consider if any further aggressive bleeding
improved hbg with transfusion 6.5 to 9.5
cont supportive care with transfusion, heparin hold (held 12/12 am), and monitoring output, PPI Gtt if hbg stable will need to consider heparin restart
ileus resolving with decreased output and + stools
will trial clamping NGT for 4 hours if low amount and tolerating consider very low dose tube feed vs if intolerant may need TPN per renal
follow up imaging 12/12 no bowel dilation
cont to correct Na with recent ileus
OP colonoscopy after discharge when stable with hx polyps
check dietary consult-- TPN recs noted with also get tube feed recs
will follow closely
Assessment / Plan
-
78 year old male who had a recent NSTEMI, CABGx4 1 and pacemaker, developed cough, SOB, weakness while at [facility] and was admitted to for healthcare-acquired pneumonia/pneumonitis on 12/02/2023. GI is consulted earlier in admission with
concern for ileus. Now noted with drop in hbg from 9 range to 6.9 with heme + stools with heparin gtt. Also noted with rise in BUN form low of 17 after admission to 129 with rise in creat. + occasional NSAID use prior to November admission.
12/12 abd X ray no acute pathology , contrast in colon, no bowel dilation
IMPRESSION / PLAN:
-black stools/coffee ground in NGT
-anemia
-concern for ileus on admission s/p NGT decompression
-LEATHA
-hypernatremia
-hx colon polyps
-recent NSTEMI, CABGx4 11/16 and pacemaker
other med problems:
-CAD
-non STEMI
-pacer/SSS
-afib
-TIA
-fatty liver
-cholecystectomy
legally blind
PLAN:
overall concern for upper GI bleeding with drop in hbg 9 to 6.9 with dark NGT drainage, rise in BUN etc. steroid use -- PUD, gastritis, NGT trauma, ectasia, mass vs other ( also concurrent LEATHA may be multifactorial)
EGD when stable from neuro and pulm standpoint -- hold today but consider if any further aggressive bleeding
improved hbg with transfusion 6.5 to 9.5
cont supportive care with transfusion, heparin hold (held 12/12 am), and monitoring output, PPI Gtt if hbg stable will need to consider heparin restart
ileus resolving with decreased output and + stools
will trial clamping NGT for 4 hours if low amount and tolerating consider very low dose tube feed vs if intolerant may need TPN per renal
follow up imaging 12/12 no bowel dilation
cont to correct Na with recent ileus
OP colonoscopy after discharge when stable with hx polyps
will follow closely
Subjective
Subjective
Date of Service: December 13, 2023
NPO with continued NGT with drainage 200ml overnight ( reviewed NGT output 1350 12/10, 850 12/11, 600 12/12, 12/13 350)
Objective
Data Reviewed
Laboratory Data:
Laboratory Results
12/13/23 03:52
Laboratory Results
APTT Cancelled 12/12/23 10:45
Magnesium 2.3 mg/dl (1.6-2.3) 12/02/23 14:57
Total Bilirubin 1.4 mg/dl (0.2-1.3) H 12/13/23 03:52
AST 32 U/L (17-59) 12/13/23 03:52
ALT 31 U/L (0-50) 12/13/23 03:52
Alkaline Phosphatase 109 U/L (38-126) 12/13/23 03:52
Vital Signs and I&O:
Vital Signs
Temp Pulse Resp BP Pulse Ox
97.0 F 68 16 107/70 99
12/13/23 07:45 12/13/23 08:00 12/13/23 08:00 12/13/23 08:00 12/13/23 08:00
I&O
12/12/23 12/13/23 12/14/23
06:59 06:59 06:59
Intake Total 3008.0 / 3116.0 2990 / 3100 220 / 220
Output Total 2275 / 2275 1450 / 1700 350 / 350
Balance 733.0 / 841.0 1540 / 1400 -130 / -130
Physical Exam
Physical Exam
HEENT: Anicteric and Moist mucous membranes
Cardiology: Normal Sinus Rhythm
Pulmonary: Clear
GI: Soft, Non Distended, Non Tender and Other (NGT with dark bilious drainage decreased amounts )
Rectal: Other (rectal tube empty just replaced 100ml overnight )
Extremities: No Edema
Neuro: Other (non verbal in exam some eye opening)
--- NOTE | 2023-12-13 10:05 | PTCARENOTE ---
Flora Yu clammed at 0900 for 4 hrs per current order will continue to monitor
[2023-12-13] MEDS: SOLU-MEDROL PF 40 MG IV ×2 (10:27→21:48)
--- NOTE | 2023-12-13 10:57 | PN.DE.MGMTRT ---
Insulin Management
- -
12/13/2023 Diabetes Management Consult
Patient admitted 12/02 with SOB, acute hypoxic respiratory failure. PMH includes CAD, Afib, pacemaker, HTN, HLD. No history of diabetes A1C in October 2023 5.5%.
Patient with hyperglycemia due to steroids and IV fluids. NPO. Receiving Q 6 hour corrective insulin. Glucose range 222 to 299. Will add lantus 12 units daily @ 11AM and continue corrective insulin. Will follow
Diabetes History
- -
Pre-Admission Diabetes Regimen
12/12/23 12/13/23
17:22 03:52
Creatinine 2.4 H 2.2 H
Insulin Pump Settings
IP Diabetes Regimen
12/12/23 12/12/23 12/12/23
11:44 17:22 17:45
Glucose 208 H
POC Glucose 271 H 222 H
12/12/23 12/13/23 12/13/23
23:17 03:52 05:20
Glucose 271 H
POC Glucose 250 H 299 H
Meal type: Breakfast
Meal type: Dinner
Meal type: Lunch
Patient Education
[2023-12-13 11:29] LABS: Glucose - Point of Care 260 mg/dl (70-99)
[2023-12-13] MEDS: LANTUS 0.119999999999999996 UNITS SC (11:36)
--- NOTE | 2023-12-13 11:50 | W.PN.NEPH.PH ---
Today's Communication / Plan
-
cont hypotonic fluids
Assessment/Plan
-
Assessment
-diffuse PNA
-hypoxic respiratory failure
-LEATHA
-hypernatremia
-metabolic alkalosis
-anemia
-Afib/flutter
-HFpEF
-HTN
-elevated LFTs
Plan
LEATHA-cr no change but non olguric
UA was bland suspect prerenal LEATHA, U na low
Hypernatremia improving slowly on D5W 100ml/hr to continue
likely intravascularly low and has peripheral edema with hypoalbuminemia, cont to hold lasix
worsening azotemia from GIB and steroids
prn transfuse for anemia with concern for GIB
BP stable
abx per ID
-
-
Date of Service: December 13, 2023
CC / HPI / ROS
-
Chief Complaint:
hypernatremia
History of Present Illness:
Na down to 147 with D5W
on less O2
BP better today
Hgb improving to 9.5
BUN up to 143
LETAHA/Cr up to 2.2
Review of Systems:
lethargic, barely nods head, less consistently shakes head
does not move arms/legs
Labs
-
Labs:
WBC 28.4 10^3/uL (4.8-10.8) H 12/13/23 03:52
RBC 3.16 10^6/uL (4.70-6.10) L 12/13/23 03:52
Plt Count 279 10^3/uL (130-400) D 12/13/23 03:52
Sodium 147 mmol/L (135-145) H 12/13/23 03:52
Potassium 4.0 mmol/L (3.5-5.1) 12/13/23 03:52
Chloride 103 mmol/L (98-107) 12/13/23 03:52
Carbon Dioxide 37 mmol/L (22-30) H 12/13/23 03:52
BUN 143 mg/dl (9-20) H* 12/13/23 03:52
Creatinine 2.2 mg/dL (0.7-1.3) H 12/13/23 03:52
eGFR 30.09 12/13/23 03:52
Glucose 271 mg/dl (70-99) H 12/13/23 03:52
Calcium 7.5 mg/dl (8.4-10.2) L 12/13/23 03:52
Ufa-H-Aruzjpvoict Pept 6700 pg/ml 12/10/23 03:10
Albumin 2.2 g/dl (3.5-5.0) L 12/13/23 03:52
Physical Exam
-
Vital Signs:
Vital Signs
Temp Pulse Resp BP Pulse Ox
96.3 F L 68 18 109/68 97
12/13/23 11:44 12/13/23 11:00 12/13/23 11:00 12/13/23 11:00 12/13/23 11:00
Cardiovascular:: Irregular rate and rhythm
Respiratory:: Bilateral: CTA
Lung Excursion:: Normal
Abdomen:: Nontender and Soft
Extremity Edema:: +1: Bilateral:
Jade Catheter: No
--- NOTE | 2023-12-13 12:26 | W.PN.HOSP.TC ---
Today's Communication/Plan
-
Monitor vitals
see plan
Monitor hemoglobin
Continue with D5 water
Monitor renal function
Prognosis guarded
Assessment / Plan
Assessment / Plan
Healthcare acquired pneumonia with recent hospitalization and been in a [facility] home
Acute hypoxic respiratory failure secondary to pneumonia
Managed with broad-spectrum antibiotic,
Was on Zosyn, due to elevated LFTs now switched to cefepime/Flagyl. ID following, now on Meropenem
remains NPO. claming BGT; managemetn per GI. might need to be started on low dose tube feeds or TPN per GI
Cough medication
Tylenol as needed
Monitor vital sign
xray with possible pneumonia and parapneumonic effusion -repeat x-ray with pneumonia. CT chest 12/07 with groundglass pattern throughout both lungs consistent with diffuse pneumonia. Pulmonary following. Now on 2L
COVID, flu, Legionella, strep neg
Monitor leukocytosis; now on methylprednisilone
�VSE 12-04 showed mild O and mild-mod P dysphagia; speech to come again once patient mentation improves
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
suspect some wax and wane is 2/2 ongoing aspiration
Adynamic ileus
Suspected acute upper GI bleed, acute blood loss anemia
likely also exacerbated by heparin
s/p PRBC 12/12; GI following; monitor hgb. no plan for EGD at this time
NG tube in place with large amount of NG aspiration; now black
cw PPI gtt
Suspect TME multifactorial with sepsis,GI bleed
monitor head CT pending
appears a bit more awake and responsive today
Acute on Chronic hypernatremia
cw d5w
stopped the Lasix and started hypotonic saline
Cardiology following. Holding off on right heart cath for now
Nephrology following
Moderate protein caloric malnutrition
History of the hypopituitarism and hypothyroidism while T4 is little high and T3 is low.
Coronary artery disease s/p recent CABG
Sick sinus syndrome status post pacemaker
A-fib/A flutter, paroxysmal
currently in A. Fib. heparin now on hold
Chronic lower extremity edema, mild while he is on amlodipine
Hypertension.
Acute on chronic HFpEF; now appears dry
Orthostatic hypotension
Hypokalemia
Resolved
LEATHA
nephrology following
monitor urine output
was on IV lasix, will stop Lasix. probnp elevated. per echo on last admission, stage 2 diastolic dysfunction. suspect Acute on chronic HFpEF
holding PO metoprolol; cw IV lopressor
Amiodarone stopped by cardiology. Continue to monitor
hold amlodipine
Elevated LFTs
Monitor
apply TEDS for orthostatic hypotension
History of the hypopituitarism and hypothyroidism�
Levothyroxine decreased to 150. Patient to get repeat TSH with free T4 in 4 to 6 weeks outpatient
should check TSH/T4 currently in pt unable to take po, consider SQ based on levels
started IV thyroid
testosterone on hold
PT OT and assess functional status
CODE STATUS full code
SCD's
Spoke in length with spouse at bedside 12/11. Discussed CODE STATUS and she currently wants patient to be full code. She is aware that prognosis appears guarded
12/12 she continues to want patient to be full code
I spent a total of 53 minutes with the patient or on the floor. More than 50% of this time involved counseling and coordination of care.
General: Well Developed, Well Nourished and No Apparent Distress (on high flow oxygen supplement)
HEENT: Normocephalic, Atraumatic and Moist Mucous Membranes
Respiratory: Rales (bibasilar rales) and Other (coarse BS); Negative Wheezes
Cardiac: S1/S2 and Irregular Rhythm
GI: Soft, Nontender and Distended; Negative Normal Bowel Sounds (absent BS)
Musculoskeletal: No Clubbing, No Cyanosis and No Edema
Neuro: Awake, Alert and Oriented
Anticipated Discharge: > 48 hours
Subjective/Interval History
-
Date of Service: December 13, 2023
more awake today
Objective Data
-
Labs:
Laboratory Results
12/13/23
03:52
WBC 28.4 H
Hgb 9.5 L
Hct 29.2 L
Plt Count 279 D
Sodium 147 H
Potassium 4.0
Chloride 103
Carbon Dioxide 37 H
BUN 143 H*
Creatinine 2.2 H
Glucose 271 H
Calcium 7.5 L
Total Bilirubin 1.4 H
AST 32
ALT 31
Alkaline Phosphatase 109
Vital Signs:
Vital Signs
Temp Pulse Resp BP Pulse Ox
96.3 F L 68 18 109/68 97
12/13/23 11:44 12/13/23 11:00 12/13/23 11:00 12/13/23 11:00 12/13/23 11:00
I&O
12/12/23 12/13/23 12/14/23
06:59 06:59 06:59
Intake Total 3008.0 / 3116.0 2990 / 3100 550 / 550
Output Total 2275 / 2275 1450 / 1700 500 / 500
Balance 733.0 / 841.0 1540 / 1400 50 / 50
--- NOTE | 2023-12-13 13:25 | W.PN.ID1 ---
Date of Service
Date of Service: December 13, 2023
Today's Communication
Continue meropenem.
Assessment / Plan
# Acute hypoxemic respiratory failure due to PNA and heart failure; decreasing 02 requirement
# Aspiration pneumonia.
- blood cx neg
-12/11 repeat CXR shows improvement of interstitial prominence bilaterally
- Continue meropenem (d6 of 7)
# Leukocytosis
-Continues to trend up, possibly due to UGIB
- on steroid, dose decreased 12/12
-C. diff negative
# UGIB
- Upper endoscopy when stable per GI.
# Acute elevated LFTs - resolving
#LEATHA
- Renally adjusted abx dosing.
# s/p recent CABG x 4 (11/16/2023)
Prognosis guarded.
#Additional Past Medical History:
Hypertension
Hyperlipidemia
Hypothyroidism
Hx cardiac arrest s/p left chest PPM
Right chest PPM implant 11/20/23
CAD s/p CABG x 4 (11/16/23)
HFpEF
Pituitary tumor (benign) status post resection
TIA
Chronic LE edema
cholecystectomy
����������������������������������������������������������
Chief Complaint
-: Leukocytosis and Pneumonia
Subjective / Review of Systems
at bedside.
Pt denies cough. +SOB
Vital Signs / Physical Exam
Vital Signs
Vital Signs
Temp Pulse Resp BP Pulse Ox
96.3 F L 68 18 109/68 97
12/13/23 11:44 12/13/23 11:00 12/13/23 11:00 12/13/23 11:00 12/13/23 11:00
Physical Exam
Constitutional: Acutely Ill
Cardiovascular: Irregular Rate and S1/S2
Pulmonary: Rhonchi
Gastrointestinal: Soft and Non Tender
Extremities: Edema
Neurological: Awake and Other (drowsy)
Lines: PICC
Objective Data
Lab Data
Lab Results
12/13/23 03:52
APTT Cancelled 12/12/23 10:45
Estimated Creat Clear 30 ml/min 12/13/23 03:52
Total Bilirubin 1.4 mg/dl (0.2-1.3) H 12/13/23 03:52
AST 32 U/L (17-59) 12/13/23 03:52
ALT 31 U/L (0-50) 12/13/23 03:52
Alkaline Phosphatase 109 U/L (38-126) 12/13/23 03:52
Most recent labs reviewed.
Micro Results:
12/12/23 19:53 C. difficile GDH Antigen & Toxins - Final
Feces/Stool Negative for toxigenic C.difficile
12/02/23 15:56 Blood Culture - Final
Blood/Venous No Growth - Final Report
12/02/23 15:56 Blood Culture - Final
Blood/Venous No Growth - Final Report
12/02/23 23:07 Nasal Screen MRSA (PCR) - Final
Nose MRSA not detected - performed by PCR methodology.
12/03/23 10:24 Legionella Urinary Antigen - Final
Urine Negative for Legionella pneumophila Serogroup 1 antigen.
A negative result does not rule out the possiblity of
Legionella infection due to other serogroups or species of
Legionella. Clinical correlation is recommended.
Streptococcus pneumoniae Antigen (M - Final
Negative for Streptococcus pneumoniae antigen.
A negative result does not exclude infection with
Streptococcus pneumoniae. Clinical correlation is
recommended.
12/02/23 14:57 Influenza Types A & B ([facility]) - Final
Nasal Swab Negative for Influenza A & B, NAAT
Negative results must be combined with clinical observations
and patient history.
Nucleic Acid Amplification test (NAAT)performed on the
[employer] NOW platform.
11/18/23 CXR: Severe bilateral pneumonia with progression in the left lung compared to the chest radiograph from 12/05/2023.
12/08/23 ABD US: Surgically absent gallbladder. No bile duct dilatation.
12/06/23 AXR: Moderate distention of the stomach, colon, and rectum with air and contrast material which is most likely secondary to an acute adynamic ileus.
12/06/23 CT chest wo IV contrast: There is groundglass pattern throughout both lungs, right much worse than left with focal areas of airspace disease predominantly on the right. The pattern is most suggestive of diffuse pneumonia. Moderately large
bilateral pleural effusions.
12/05/23 CXR: Stable extensive right lung pneumonia. Stable post operative changes.
12/02/23 CXR: Significant change in the appearance of the lungs, with new right upper and lower lung zone pneumonia and parapneumonic effusion.
12/11/23 CXR: �Interstitial prominence bilaterally, improved compared to prior chest x-ray, suggestive of improved pulmonary edema. Hazy opacity within the right upper and left lower lung zones, which may represent pneumonia or alveolar pulmonary
edema. Haziness of left hemidiaphragm. Small left pleural effusion may be present, consider PA and lateral views when possible.
[2023-12-13 14:14] LABS: Hematocrit 28.9 % (39.0-52.0); Hemoglobin 9.4 g/dL (13.0-18.0)
--- NOTE | 2023-12-13 14:33 | W.PN.UPDATE ---
Update Note
Progress Note Update
reviewed with nursing after 4 hours NGT zero output. hbg 9.4. will start low dose tube feed and monitor
[2023-12-13] MEDS: LEVOTHROID 75 MCG IV (16:56)
[2023-12-13] MEDS: NOVOLOG FLEXPEN-MODERATE RESISTANCE 3 UNITS SC (17:01)
[2023-12-13 17:13] LABS: Glucose - Point of Care 226 mg/dl (70-99)
--- NOTE | 2023-12-13 20:00 | PTCARENOTE ---
Pt received this shift A&Ox1, oriented to name. VSS, NAD noted at this time. Pt turned with Ax2, lungs diminished at bases. CC # [address] draining yellow urine, rectal trumpet with black stool draining. Pt found to have Ileus, hypoactive bowel
sounds in upper R&L quadrants, normal BS in B/L lower quadrants. NG in place with TF osmolite 1.2 infusing per orders, titrating up per order. Currently at 10ml/hr with 25cc flush. Protonix gtt infusing per orders via RUE PICC along with D5W. a-fib
V paced on monitor. B/L mitts in place with order to be renewed if appropriate at 12/14/23 0024.
[2023-12-13 22:05] LABS: Hemoglobin 9.1 g/dL (13.0-18.0)
--- NOTE | 2023-12-13 22:56 | PTCARENOTE ---
Pt transferred to IMU, report given to Christelle KAUR at pts bedside.
--- NOTE | 2023-12-13 23:07 | TRANSFER ---
report received from ICU- pt transferred to room 3352- pt non-verbal but able to nod head appropriately, mouths answers to questions. pupils sluggish, blind. pt a-fib, v-paced with PVC's. edema noted to bilateral lower extremities, and left arm. 2L
98%. condom cath #21 intact, draining yellow urine. rare nare NG tube placement verified, tube feeds infusing @10ml/hr. b/l mitts in place. pt oriented to new room, call coats within reach, care ongoing.
[2023-12-14] VITALS (12 sets, daily range): BP systolic 107–120; BP diastolic 64–75; BMI 30.1
[2023-12-14 00:55] LABS: Glucose - Point of Care 281 mg/dl (70-99)
[2023-12-14] MEDS: NOVOLOG FLEXPEN-MODERATE RESISTANCE 5 UNITS SC ×3 (00:56→12:05)
[2023-12-14] MEDS: PROTONIX 100 IV ×3 (02:10→22:17)
[2023-12-14] MEDS: D5W 1000 IV ×2 (02:10→11:57)
--- NOTE | 2023-12-14 03:18 | PTCARENOTE ---
0100- tube feed increased to 20ml/hr per order. pt with on 8ml of residual.
[2023-12-14 05:14] LABS: % Basophils 0.2 % (0-2); % Immature Granulocytes 4.2 % (0-0.5); % Lymphocytes 3.9 % (20.5-51.1); % Monocytes 2.9 % (1.7-9.3); % Neutrophils 88.8 % (42.2-75.2); Absolute Basophils 0.1 10^3/uL (0-0.2); Absolute Immature Granulocytes 1.4 10^3/uL (0-0.05); Absolute Lymphocytes 1.3 10^3/uL (1.2-3.4); Absolute Monocytes 0.9 10^3/uL (0.1-0.6); Absolute Neutrophils 28.6 10^3/uL (1.4-6.5); Hemoglobin 8.7 g/dL (13.0-18.0); Mean Corp Hgb Conc. 32.2 g/dL (33.0-37.0); Mean Corpuscular Hgb 30.3 pg (27.0-31.0); Mean Corpuscular Volume 94.1 fL (80.0-94.0); Mean Platelet Volume 11.2 fL (7.4-10.4); Nucleated Red Blood Cells % 3.2 % (-); Platelet Count 208 10^3/uL (130-400); Red Blood Cell Count 2.87 10^6/uL (4.70-6.10); Red Cell Dist. Width 17.2 % (11.5-14.5); White Blood Cell Count 32.2 10^3/uL (4.8-10.8)
[2023-12-14] MEDS: MERREM 500 MG IV ×3 (05:16→21:21)
[2023-12-14] MEDS: STERILE WATER FOR INJECTION 10 ML IV ×3 (05:16→21:21)
[2023-12-14 05:31] LABS: Glucose - Point of Care 244 mg/dl (70-99)
[2023-12-14 05:32] LABS: ALT (SGPT) 30 U/L (0-50); AST (SGOT) 38 U/L (17-59); Albumin 2.2 g/dl (3.5-5.0); Alkaline Phosphatase 120 U/L (38-126); Calcium 7.4 mg/dl (8.4-10.2); Carbon Dioxide 38 mmol/L (22-30); Chloride 104 mmol/L (98-107); Estimated Creatinine Clearance 33 ml/min; Glucose 241 mg/dl (70-99); Potassium 3.9 mmol/L (3.5-5.1); Sodium 143 mmol/L (135-145); Total Bilirubin 1.3 mg/dl (0.2-1.3); Total Protein 4.7 g/dl (6.3-8.2); eGFR 33.74
--- NOTE | 2023-12-14 05:45 | PTCARENOTE ---
full bed bath given this AM- rectal trumpet leaking melena colored liquid stool- new rectal trumpet placed- trumpet flushed and patent. pt denies any c/o pain- able to answer questions by whispering or nodding yes or no.
[2023-12-14 05:46] LABS: Blood Urea Nitrogen 126 mg/dl (9-20)
--- NOTE | 2023-12-14 08:35 | W.PN.CD ---
Today's Communication / Plan
-
-Resume anticoagulation when ok with GI
-I will sing off, happy to return if needed
Impression / Plan
-
Impression: 78M with recent NSTEMI -> CABG (11/16) & right sided PPM. He initially felt better, but developed dyspnea and resp fatigue, needed Tx to IMU
PMH: paroxysmal atrial flutter, SSS / AV block s/p PPM, HTN/HLD
Plan
Acute hypoxic respiratory failure in the setting of Pna/pneumonitis
-started unilateral on R and then progressed to bilat
-Discontinued amiodarone. Treating w Meropenem, and steroid.
-initially Rx w lasix too - but this has been held due to azotemia/worsening renal fn
-CXR 12/12/23 with improvement
- down to 2 liters
Aflutter, paroxysmal
-Currently in coarse A-fib.
- typically on Xarelto---now off anticoagulation with c/f GIB and anemia.
-Resume anticoagulation when ok with GI
-Patient with suspected pneumonia but with pulmonary findings and tenuous respiratory status we discontinued amiodarone and continue with rate control right now.
-CHADS2-Vasc = 4 (HTN, Age x2, Vascular Disease).
-no short term plan to DCCV can be revisisted upon clinical improvement, as an outpatient
GIB:
-holding anticoagulation
-GI managing, will need EGD when MS/Resp status improves
TME:more alert today, BUN>100
LEATHA
- improving, nephrology following
anemia -stable t 8.7
Sick sinus syndrome / AV block
-R sided PPM set to VVI 40 bpm. Occluded venous system on the left shoulder with attempted venoplasty with only limited success.
-New right sided conduction system pacemaker implanted on 11/20/23.
CAD s/p recent CABG (11/16/23)
HTN: Stable/controlled on current medication regimen.
Mixed hyperlipidemia -elevated LFT - hold statin amiodarone also held as noted above
Prior pituitary surgery
Legally blind
Remains critically ill
Subjective:opens eyes to name
DATA:
Intraoperative KEVIN, 11/16/2023:
Overall LVEF is approximately 60% with no RWMA.
Moderate mitral regurgitation.
Mild tricuspid regurgitation.
Cardiac Catheterization, 11/10/2023:
Left Main: Normal
LAD: Tandem 50% ostial and 40% proximal LAD stenoses.� There is 30% mid LAD stenosis.� The major diagonal branch has 60% proximal to mid stenosis.
Circumflex: 90% ostial circumflex stenosis.� There is 40% mid circumflex stenosis.� OM1 is very large with 70% mid stenosis.� OM 2 is a small to medium sized bifurcating vessel with 60% ostial stenosis.
RCA: 50% mid RCA stenosis.� The RCA has otherwise mild diffuse disease.� The acute marginal branch supplies the distal PDA territory.� There is no clearly visible PDA and the posterolateral branches are small.
.
Physical Exam
Vital Signs/Labs
Vital Signs
Temp Pulse Resp BP Pulse Ox
97.6 F 61 13 112/68 100
12/14/23 03:20 12/14/23 06:00 12/14/23 06:00 12/14/23 06:00 12/14/23 06:00
12/13/23 12/14/23 12/15/23
06:59 06:59 06:59
Actual Weight 95.3 kg 97.9 kg
12/14/23 04:42
12/14/23 04:42
APTT Cancelled 12/12/23 10:45
Magnesium 2.3 mg/dl (1.6-2.3) 12/02/23 14:57
Free T4 1.00 ng/dl (0.78-2.19) 12/10/23 03:10
12/02/23 12/03/23 12/10/23
14:57 09:22 03:10
[id number] Pept [id number]
Physical Exam
Constitutional: No acute distress
Cardiovascular: Pedal edema is absent, Systolic murmur absent, Diastolic murmur absent and Rhythm/rate is irregular
Respiratory: Respiratory effort normal, Lungs clear to auscul., Wheeze Absent and Crackles Absent
GI: Soft and Normal bowel sounds
Neuro/Psych: Alert
Data Reviewed
-
Date of Service: December 14, 2023
EKG: Other (tele fib with intermittent pacing)
Medical Tests (PFT, Pathology etc): Discussed with Physician (dustin Melendrez, resume oat when able, will sign offf)
--- NOTE | 2023-12-14 09:05 | PN.DE.MGMTRT ---
Insulin Management
- -
12/13/2023 Diabetes Management Consult
Patient admitted 12/02 with SOB, acute hypoxic respiratory failure. PMH includes CAD, Afib, pacemaker, HTN, HLD. No history of diabetes A1C in October 2023 5.5%.
Patient with hyperglycemia due to steroids and IV fluids. NPO. Receiving Q 6 hour corrective insulin. Glucose range 222 to 299. Will add lantus 12 units daily @ 11AM and continue corrective insulin. Will follow
12/14/2023 Diabetes Management Follow up
Lantus 12 units was started 11AM with Q 6 hour corrective insulin. Glucose has remained > 200. Tube feeds have been started. Will increase 11AM lantus to 15 units. Will start Q 6 hour novolog 5 units with moderate corrective insulin. Will
follow. If tube feeds are stopped or held please hold the 5 units novolog Q 6 hours and continue corrective insulin Q6 hours.
Diabetes History
- -
Pre-Admission Diabetes Regimen
12/14/23
04:42
Creatinine 2.0 H
Insulin Pump Settings
IP Diabetes Regimen
12/13/23 12/13/23 12/14/23
11:15 16:52 00:43
Glucose
POC Glucose 260 H 226 H 281 H
12/14/23 12/14/23
04:42 05:14
Glucose 241 H
POC Glucose 244 H
Patient Education
--- NOTE | 2023-12-14 09:35 | W.PN.ID1 ---
Date of Service
Date of Service: December 14, 2023
Today's Communication
Last day meropenem.
Repeat bcx's, UA/reflex Ucx
Assessment / Plan
# Acute hypoxemic respiratory failure due to PNA and heart failure; decreasing 02 requirement, on 2L
# Aspiration pneumonia.
- blood cx neg
-12/11 repeat CXR shows improvement of interstitial prominence bilaterally
- Continue meropenem (d7 of 7)
# Leukocytosis
-Continues to trend up
- on steroid, dose decreased 12/12
-C. diff negative
- Check blood cx's, UA relfex tocx.
-Follow wbc
# UGIB
- Upper endoscopy when stable per GI.
# Acute elevated LFTs - resolved
#LEATHA
- Renally adjusted abx dosing.
# s/p recent CABG x 4 (11/16/2023)
Prognosis guarded.
#Additional Past Medical History:
Hypertension
Hyperlipidemia
Hypothyroidism
Hx cardiac arrest s/p left chest PPM
Right chest PPM implant 11/20/23
CAD s/p CABG x 4 (11/16/23)
HFpEF
Pituitary tumor (benign) status post resection
TIA
Chronic LE edema
cholecystectomy
����������������������������������������������������������
Chief Complaint
-: Leukocytosis and Pneumonia
Subjective / Review of Systems
Drowsy
Vital Signs / Physical Exam
Vital Signs
Vital Signs
Temp Pulse Resp BP Pulse Ox
97.6 F 61 13 112/68 100
12/14/23 03:20 12/14/23 06:00 12/14/23 06:00 12/14/23 06:00 12/14/23 06:00
Physical Exam
Constitutional: Acutely Ill and Chronically Ill
Cardiovascular: Irregular Rate and S1/S2
Pulmonary: Clear (anteriorly)
Gastrointestinal: Soft, Non Tender, Non Distended and Other (FMS: dark brown stool)
Genito-Urinary: Clear Urine
Extremities: Edema
Neurological: Other (drowsy)
Objective Data
Lab Data
Lab Results
12/14/23 04:42
12/14/23 04:42
APTT Cancelled 12/12/23 10:45
Estimated Creat Clear 33 ml/min 12/14/23 04:42
Total Bilirubin 1.3 mg/dl (0.2-1.3) 12/14/23 04:42
AST 38 U/L (17-59) 12/14/23 04:42
ALT 30 U/L (0-50) 12/14/23 04:42
Alkaline Phosphatase 120 U/L (38-126) 12/14/23 04:42
Most recent labs reviewed.
Micro Results:
12/12/23 19:53 C. difficile GDH Antigen & Toxins - Final
Feces/Stool Negative for toxigenic C.difficile
12/02/23 15:56 Blood Culture - Final
Blood/Venous No Growth - Final Report
12/02/23 15:56 Blood Culture - Final
Blood/Venous No Growth - Final Report
12/02/23 23:07 Nasal Screen MRSA (PCR) - Final
Nose MRSA not detected - performed by PCR methodology.
12/03/23 10:24 Legionella Urinary Antigen - Final
Urine Negative for Legionella pneumophila Serogroup 1 antigen.
A negative result does not rule out the possiblity of
Legionella infection due to other serogroups or species of
Legionella. Clinical correlation is recommended.
Streptococcus pneumoniae Antigen (M - Final
Negative for Streptococcus pneumoniae antigen.
A negative result does not exclude infection with
Streptococcus pneumoniae. Clinical correlation is
recommended.
12/02/23 14:57 Influenza Types A & B ([facility]) - Final
Nasal Swab Negative for Influenza A & B, NAAT
Negative results must be combined with clinical observations
and patient history.
Nucleic Acid Amplification test (NAAT)performed on the
[employer] NOW platform.
11/18/23 CXR: Severe bilateral pneumonia with progression in the left lung compared to the chest radiograph from 12/05/2023.
12/08/23 ABD US: Surgically absent gallbladder. No bile duct dilatation.
12/06/23 AXR: Moderate distention of the stomach, colon, and rectum with air and contrast material which is most likely secondary to an acute adynamic ileus.
12/06/23 CT chest wo IV contrast: There is groundglass pattern throughout both lungs, right much worse than left with focal areas of airspace disease predominantly on the right. The pattern is most suggestive of diffuse pneumonia. Moderately large
bilateral pleural effusions.
12/05/23 CXR: Stable extensive right lung pneumonia. Stable post operative changes.
12/02/23 CXR: Significant change in the appearance of the lungs, with new right upper and lower lung zone pneumonia and parapneumonic effusion.
12/11/23 CXR: �Interstitial prominence bilaterally, improved compared to prior chest x-ray, suggestive of improved pulmonary edema. Hazy opacity within the right upper and left lower lung zones, which may represent pneumonia or alveolar pulmonary
edema. Haziness of left hemidiaphragm. Small left pleural effusion may be present, consider PA and lateral views when possible.
[2023-12-14] MEDS: SOLU-MEDROL PF 40 MG IV ×2 (09:50→21:21)
[2023-12-14 10:12] LABS: Urine Albumin Trace (Neg - Trace); Urine Bilirubin Negative (Negative); Urine Character Clear (Clear); Urine Color Yellow; Urine Glucose Negative (Negative); Urine Ketone Negative (Negative); Urine Leukocyte Negative (Negative); Urine Nitrite Negative (Negative); Urine Occult Blood 1+ (Negative); Urine Urobilinogen Negative (Neg - 1+)
[2023-12-14 10:26] LABS: Urine Squamous Cell 0-2 /LPF (Few)
[2023-12-14 10:27] LABS: Urine Mucus Few; Urine Red Blood Cell 0-2 /HPF (0-2)
[2023-12-14 10:28] LABS: Urine Bacteria Moderate (Negative); Urine White Cell 0-2 /HPF (0-5); Urine Yeast Moderate (Negative)
--- NOTE | 2023-12-14 11:11 | W.PN.PUL3 ---
Today's Communication / Plan
-
Extremely deconditioned, poor cough, cannot vocalize
Continue supplemental oxygen
Continue aspiration precautions, n.p.o.
Continue nutrition
Ongoing discussion regarding goals of care
Assessment
-
Assessment:
Mr Madhav Morales is a 78/M adm 12-02 from [facility] where he was rehabilitating after sustaining MSTEMI for which he received CABG at on 11-16-23 (also received R sided PPM for AVB), with 4 d h/o productive cough of greenish sputum, chills and
dyspnea. At ER, R sided infiltrate, started on vancomycin/cefepime, then changed to zosyn since 12-03. Increasing O2 requirements led to pulm consultation 12-06
Bilateral pneumonia/pneumonitis R>>L (suspect component of inflammatory pneumonitis)
Bilateral dependent pleural effusions and compressive L base atelectasis
Lethargy
Worsening anemia
Heme positive liquid stools
Leukocytosis
Persistent moderate anemia
Transaminitis - improving
Elevated BNP
Normal PCT 12-03
Dysphagia: mild oral and mild-moderate pharyngeal
Ileus s/p NGT
Conditions EVENTS INTERN:
CAD s/p CABGx4 and PPM (AVB) early Nov 2023
PAFib on rivaroxaban, L sided PPM in past, on amiodarone
HTN
HLD
Gout
Hypothyroidism
Diastolic dysfunction
Moderate MR
Chronic hyponatremia
Pituitary tumor s/p resection
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
R sided blindness
TIA
Fatty liver
Cholecystectomy
Nonsmoker
Plan/recommendations
Unfortunately, patient remains profoundly deconditioned. Has absolutely no cough on command, cannot vocalize name
Transferred to IMU level of care due to worsening resp failure 12-06
Poor inspiratory effort on exam.
Chest x-ray 12/11/2023 with mild interstitial changes, overall improved
98% on [address] 12/12/2023 without acute findings
Moving forward, difficult situation
Patient with profound weakness, cannot cough. Discussed with at bedside that given lack of airway clearance ability, profound deconditioning, prognosis remains poor
states patient has not been able to stand or walk for 3+ weeks
No clear evidence of infectious process at this time
Unable to obtain sputum culture
Antibiotics continue per ID, last day of meropenem
Repeat cultures per ID
Leukocytosis noted
On admission, was on Zosyn, transition to cefepime/metronidazole on 12-06 --> then changed to meropenem on 12/08, last day today
Profound weakness noted
Change in MS multifactorial: acute anemia, hypotension, hypernatremia, ICU environment, azotemia
Head CT with chronic changes, old right frontal infarct, suprasellar aneurysm clip
Hemoglobin appears to be stable
GI bleed with liquid dark brown stool, heme positive
Was on IV heparin, held 12/12. Pending resumption of Xarelto, history of atrial fibrillation
Hemoglobin improved from 6.5-9.6, currently 8.7
Remains on Protonix
Amiodarone discontinued
Echo 12/11/2023 with normal biventricular function
Resume anticoagulation when okay per GI
Cardiology has signed off 12/14/2023
Patient was on high flow oxygen, did not tolerate BiPAP upon transition to IMU
Currently on 2 L nasal cannula, 98%
Follow imaging intermittently
Keep NPO except meds in meantime
NG tube in place
At risk for aspiration
NG tube remains in place, tolerating nutrition
Creatinine, azotemia noted
Nephrology following
Full code status
Prognosis remains guarded in view of multiple comorbidities and inpatient clinical course, aware
Reviewed with primary service
Diagnostic tests:
Chest/Abd XR 12-09-2023:
Relatively stable appearance of the chest. Extensive diffuse bilateral interstitial and airspace opacity. Nasogastric tube extends into the stomach. No pneumothorax.
Examination of the abdomen demonstrates opaque contrast material within the colon, without significant change or distal propagation compared to the prior examination. As before, contrast is predominantly within the ascending colon, transverse colon,
and proximal to mid descending colon. This has not extended any further distally. However, no colonic dilatation to suggest obstruction.
Relative paucity of small bowel gas.
No suspicious air-fluid levels.
No free air.
CXR 12-05-23, c/w and 11-21-23. Baseline with no infiltrates. Fillms this adm with new onset R sided infiltrate and mild pulm vasc congestion on L. Last adm with new L sided PPM (already had L sided PPM)
Subjective Data
-
Date of Service:
Date of Service: December 14, 2023
Chief Complaint: Pulmonary Follow Up
Subjective:
Patient profoundly weak. Cannot say name, cannot vocalize. Has no cough on command. Profoundly deconditioned. NG tube in place. at bedside. 98% on 2 L
Objective Data
Data Reviewed
Vital Signs / I&O / Oxygen:
Vital Signs
Temp Pulse Resp BP Pulse Ox
96.5 F L 61 13 112/68 100
12/14/23 07:40 12/14/23 06:00 12/14/23 06:00 12/14/23 06:00 12/14/23 06:00
Intake and Output
12/13/23 12/14/23 12/15/23
06:59 06:59 06:59
Intake Total 2990 / 3100 1695 / 1695
Output Total 1450 / 1700 1800 / 1800
Balance 1540 / 1400 -105 / -105
SaO2 100
Nasal Cannula flow liters per 2
minute
Physical Exam
General: Respiratory Distress (mild)
HEENT: Normocephalic and Anicteric
Cardiovascular: S1-S2, Irregular Rhythm (Irregularly irregular), Peripheral Edema (trace LE edema b/l) and Calf Tenderness (n)
Respiratory: Wheeze (n), Crackles (posteriorly bibasilar), Rhonchi (neg), Accessory Resp Muscle Use (mild), Stridor (n) and Other (Poor inspiratory effort)
GI: Soft, Non Distended, Non Tender and NG Tube
Neurology: Awake, Alert and No Motor Deficits (Profoundly weak, elevates arms, cannot elevate legs off bed. Lift head off pillow. Cannot cough or vocalize)
Skin: Dry, Cyanosis (n) and Jaundice (n)
Labs/Micro/Reports
Lab Data
12/14/23 04:42
12/14/23 04:42
Microbiology
12/12/23 19:53 Feces/Stool C. difficile GDH Antigen & Toxins - Final
Negative for toxigenic C.difficile
[2023-12-14] MEDS: LANTUS 0.149999999999999994 UNITS SC (12:04)
[2023-12-14] MEDS: NOVOLOG FLEXPEN 5 UNITS SC ×3 (12:05→23:45)
[2023-12-14 12:15] LABS: Glucose - Point of Care 263 mg/dl (70-99)
--- NOTE | 2023-12-14 12:30 | W.PN.NEPH.PH ---
Today's Communication / Plan
-
CXR, lasix if needed
Assessment/Plan
-
Assessment
-diffuse PNA
-hypoxic respiratory failure
-LEATHA
-hypernatremia
-metabolic alkalosis
-anemia
-Afib/flutter
-HFpEF
-HTN
-elevated LFTs
Plan
LEATHA-cr slightly better and non oliguric
UA was bland suspect prerenal LEATHA, U na low
Hypernatremia improved on D5W
pt now c/o sob and started on TF hence d/c IVF , check CXR
likely resume lasix today
Significant azotemia from GIB and steroids
prn transfuse for anemia with concern for GIB
BP stable
abx per ID
pt is thinking of GOC
-
-
Date of Service: December 14, 2023
CC / HPI / ROS
-
Chief Complaint:
hypernatremia
History of Present Illness:
Na down to 143 with D5W
remains on O2
BP stable
Hgb low 8.7
BUN better at 126
LEATHA/Cr slightly down to 2, non oliguric
on TF with FW
Review of Systems:
c/o sob at rest
no pain but uncomfortable
Labs
-
Labs:
WBC 32.2 10^3/uL (4.8-10.8) H 12/14/23 04:42
RBC 2.87 10^6/uL (4.70-6.10) L 12/14/23 04:42
Hgb 8.7 g/dL (13.0-18.0) L 12/14/23 04:42
Hct 27.0 % (39.0-52.0) L 12/14/23 04:42
Plt Count 208 10^3/uL (130-400) D 12/14/23 04:42
Sodium 143 mmol/L (135-145) 12/14/23 04:42
Potassium 3.9 mmol/L (3.5-5.1) 12/14/23 04:42
Chloride 104 mmol/L (98-107) 12/14/23 04:42
Carbon Dioxide 38 mmol/L (22-30) H 12/14/23 04:42
BUN 126 mg/dl (9-20) H* 12/14/23 04:42
Creatinine 2.0 mg/dL (0.7-1.3) H 12/14/23 04:42
eGFR 33.74 12/14/23 04:42
Glucose 241 mg/dl (70-99) H 12/14/23 04:42
Calcium 7.4 mg/dl (8.4-10.2) L 12/14/23 04:42
Tzl-C-Ugqovhljlef Pept 6700 pg/ml 12/10/23 03:10
Albumin 2.2 g/dl (3.5-5.0) L 12/14/23 04:42
Physical Exam
-
Vital Signs:
Vital Signs
Temp Pulse Resp BP Pulse Ox
96.5 F L 61 13 118/70 99
12/14/23 07:40 12/14/23 11:00 12/14/23 11:00 12/14/23 10:00 12/14/23 11:00
Cardiovascular:: Regular rate and rhythm
Respiratory:: Bilateral: Rales
Lung Excursion:: Abnormal
Abdomen:: Nontender and Soft
Extremity Edema:: +1: Bilateral:
Jade Catheter: No
--- NOTE | 2023-12-14 12:57 | W.PN.HOSP.TC ---
Addendum entered and electronically signed by Joel Melendrez MD 12/14/23 13:03:
History of CVA
Noted on CT scan. This was discussed with spouse.
Original Note:
Today's Communication/Plan
-
Monitor vital signs and see plan
Prognosis guarded
Goals of care discussion ongoing with patient and spouse
On PPI
X-ray
Monitor leukocytosis
Monitor hemoglobin
Monitor renal function
Antibiotics
Assessment / Plan
Assessment / Plan
Healthcare acquired pneumonia with recent hospitalization and been in a alf home
Acute hypoxic respiratory failure secondary to pneumonia
Managed with broad-spectrum antibiotic,
Was on Zosyn, due to elevated LFTs now switched to cefepime/Flagyl. ID following, now on Meropenem
remains NPO; management per GI. Started on low tube feeds
Cough medication
Tylenol as needed
Monitor vital sign
xray with possible pneumonia and parapneumonic effusion -repeat x-ray with pneumonia. CT chest 12/07 with groundglass pattern throughout both lungs consistent with diffuse pneumonia. Pulmonary following. Now on 2L
COVID, flu, Legionella, strep neg
Monitor leukocytosis; now on methylprednisilone
�VSE 12-04 showed mild O and mild-mod P dysphagia; speech to come again once patient mentation improves
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
suspect some wax and wane is 2/2 ongoing aspiration
Patient told overnight RN, daytime RN and me that he just wants to be comfortable and does not want any aggressive measures. This was also discussed with patient's spouse 12/14 by me. Spouse will be speaking to other family members and will make a
decision.
Adynamic ileus
Suspected acute upper GI bleed, acute blood loss anemia
likely also exacerbated by heparin
s/p PRBC 12/12; GI following; monitor hgb. no plan for EGD at this time
cw PPI gtt
Suspect TME multifactorial with sepsis,GI bleed
monitor head CT pending
appears a bit more awake and responsive today; patient seems lethargic however awake alert and oriented
Acute on Chronic hypernatremia
Improving
stopped the Lasix and started hypotonic saline, chest x-ray today with hopeful to restart lasix
Cardiology following. Holding off on right heart cath for now
Nephrology following
Moderate protein caloric malnutrition
History of the hypopituitarism and hypothyroidism while T4 is little high and T3 is low.
Coronary artery disease s/p recent CABG
Sick sinus syndrome status post pacemaker
A-fib/A flutter, paroxysmal
currently in A. Fib. heparin now on hold
Chronic lower extremity edema, mild while he is on amlodipine
Hypertension.
Acute on chronic HFpEF; monitor
Orthostatic hypotension
Hypokalemia
Resolved
LEATHA
nephrology following
monitor urine output
was on IV lasix, will stop Lasix. probnp elevated. per echo on last admission, stage 2 diastolic dysfunction. suspect Acute on chronic HFpEF
holding PO metoprolol; cw IV lopressor
Amiodarone stopped by cardiology. Continue to monitor
hold amlodipine
Elevated LFTs
Monitor
apply TEDS for orthostatic hypotension
History of the hypopituitarism and hypothyroidism�
Levothyroxine decreased to 150. Patient to get repeat TSH with free T4 in 4 to 6 weeks outpatient
should check TSH/T4 currently in pt unable to take po, consider SQ based on levels
Now restarted on p.o. synthroid
testosterone on hold
PT OT and assess functional status
CODE STATUS full code
SCD's
Spoke in length with spouse at bedside 12/11. Discussed CODE STATUS and she currently wants patient to be full code. She is aware that prognosis appears guarded
12/12 she continues to want patient to be full code
12/14 Patient told overnight RN, daytime RN and me that he just wants to be comfortable and does not want any aggressive measures. This was also discussed with patient's spouse 12/14 by me. Spouse will be speaking to other family members and will make
a decision.
I spent a total of 54 minutes with the patient or on the floor. More than 50% of this time involved counseling and coordination of care.
General: Well Developed, Well Nourished and No Apparent Distress (on high flow oxygen supplement)
HEENT: Normocephalic, Atraumatic and Moist Mucous Membranes
Respiratory: Rales (bibasilar rales) and Other (coarse BS); Negative Wheezes
Cardiac: S1/S2 and Irregular Rhythm
GI: Soft, Nontender and Distended
Musculoskeletal: No Clubbing, No Cyanosis and No Edema
Neuro: Awake, Alert and Oriented
Anticipated Discharge: > 48 hours
Subjective/Interval History
-
Date of Service: December 14, 2023
denies pain
Objective Data
-
Labs:
Laboratory Results
12/14/23
04:42
WBC 32.2 H
Hgb 8.7 L
Hct 27.0 L
Plt Count 208 D
Sodium 143
Potassium 3.9
Chloride 104
Carbon Dioxide 38 H
BUN 126 H*
Creatinine 2.0 H
Glucose 241 H
Calcium 7.4 L
Total Bilirubin 1.3
AST 38
ALT 30
Alkaline Phosphatase 120
Vital Signs:
Vital Signs
Temp Pulse Resp BP Pulse Ox
96.5 F L 61 13 118/70 99
12/14/23 07:40 12/14/23 11:00 12/14/23 11:00 12/14/23 10:00 12/14/23 11:00
I&O
12/13/23 12/14/23 12/15/23
06:59 06:59 06:59
Intake Total 2990 / 3100 1695 / 1695
Output Total 1450 / 1700 1800 / 1800
Balance 1540 / 1400 -105 / -105
--- NOTE | 2023-12-14 15:08 | W.PN.GI.CBS2 ---
Today's Communication / Plan
-
PLAN:
- upper GI bleeding steroid use -- PUD, gastritis, NGT trauma, ectasia, mass vs other ( also concurrent LEATHA may be multifactorial)
Currently seems to be resolved.
Continue PPI
Monitor H&H and transfuse if needed
On tube feeds at 30 cc an hour without any residuals
No plans for EGD at this time
-CT showing CVA
No further GI workup, will sign off, please call back if needed
Assessment / Plan
-
78 year old male who had a recent NSTEMI, CABGx4 1/4 and pacemaker, developed cough, SOB, weakness while at [facility] and was admitted to for healthcare-acquired pneumonia/pneumonitis on 12/02/2023. GI is consulted earlier in admission with
concern for ileus. Now noted with drop in hbg from 9 range to 6.9 with heme + stools with heparin gtt. Also noted with rise in BUN form low of 17 after admission to 129 with rise in creat. + occasional NSAID use prior to November admission.
12/12 abd X ray no acute pathology , contrast in colon, no bowel dilation
IMPRESSION / PLAN:
-black stools/coffee ground in NGT
-anemia
-concern for ileus on admission s/p NGT decompression
-LEATHA
-hypernatremia
-hx colon polyps
-recent NSTEMI, CABGx4 1/4 and pacemaker
other med problems:
-CAD
-non STEMI
-pacer/SSS
-afib
-TIA
-fatty liver
-cholecystectomy
legally blind
PLAN:
- upper GI bleeding steroid use -- PUD, gastritis, NGT trauma, ectasia, mass vs other ( also concurrent LEATHA may be multifactorial)
Currently seems to be resolved.
Continue PPI
Monitor H&H and transfuse if needed
On tube feeds at 30 cc an hour without any residuals
No plans for EGD at this time
-CT showing CVA
No further GI workup, will sign off, please call back if needed
Subjective
Subjective
Date of Service: December 14, 2023
Patient without any events overnight, no further bleeding from the NG
Objective
Data Reviewed
Laboratory Data:
Laboratory Results
12/14/23 04:42
12/14/23 04:42
Laboratory Results
APTT Cancelled 12/12/23 10:45
Magnesium 2.3 mg/dl (1.6-2.3) 12/02/23 14:57
Total Bilirubin 1.3 mg/dl (0.2-1.3) 12/14/23 04:42
AST 38 U/L (17-59) 12/14/23 04:42
ALT 30 U/L (0-50) 12/14/23 04:42
Alkaline Phosphatase 120 U/L (38-126) 12/14/23 04:42
Vital Signs and I&O:
Vital Signs
Temp Pulse Resp BP Pulse Ox
96.5 F L 62 14 116/71 98
12/14/23 07:40 12/14/23 13:00 12/14/23 13:00 12/14/23 12:00 12/14/23 14:38
I&O
12/13/23 12/14/23 12/15/23
06:59 06:59 06:59
Intake Total 2990 / 3100 1695 / 1695
Output Total 1450 / 1700 1800 / 1800
Balance 1540 / 1400 -105 / -105
Physical Exam
Physical Exam
GI: Soft and Non Tender
--- NOTE | 2023-12-14 17:19 | CM ---
Patient with Hx legally blind from [facility] with Dx Acute hypoxemic respiratory failure due to PNA and heart failure, Aspiration pneumonia, UGI bleed. O2 2L. Tube feeds. Receiving Heparin gtt, IV meropenum, IV Solumedrol. PT/OT Evals on hold.
As per prior CM notes, patient's would like patient to be discharged to [phone]; .
Patient will need PT/OT/PM&R evaluations.
Plan follow up after PT/OT and request Physiatry Eval as appropriate.
[2023-12-14] MEDS: NOVOLOG FLEXPEN-MODERATE RESISTANCE 3 UNITS SC (18:08)
[2023-12-14 18:17] LABS: Glucose - Point of Care 245 mg/dl (70-99)
[2023-12-14] MEDS: NOVOLOG FLEXPEN-MODERATE RESISTANCE 1 UNITS SC (23:45)
[2023-12-14 23:53] LABS: Glucose - Point of Care 192 mg/dl (70-99)
[2023-12-15] VITALS (10 sets, daily range): BP systolic 100–123; BP diastolic 54–65
[2023-12-15 04:54] LABS: % Basophils 0.2 % (0-2); % Immature Granulocytes 2.7 % (0-0.5); % Lymphocytes 2.3 % (20.5-51.1); % Monocytes 2.6 % (1.7-9.3); % Neutrophils 92.2 % (42.2-75.2); Absolute Basophils 0.1 10^3/uL (0-0.2); Absolute Immature Granulocytes 0.9 10^3/uL (0-0.05); Absolute Lymphocytes 0.7 10^3/uL (1.2-3.4); Absolute Monocytes 0.9 10^3/uL (0.1-0.6); Absolute Neutrophils 30.3 10^3/uL (1.4-6.5); Hemoglobin 8.9 g/dL (13.0-18.0); Mean Corp Hgb Conc. 31.8 g/dL (33.0-37.0); Mean Corpuscular Hgb 30.6 pg (27.0-31.0); Mean Corpuscular Volume 96.2 fL (80.0-94.0); Mean Platelet Volume 11.8 fL (7.4-10.4); Nucleated Red Blood Cells % 2.8 % (-); Platelet Count 208 10^3/uL (130-400); Red Blood Cell Count 2.91 10^6/uL (4.70-6.10); Red Cell Dist. Width 17.2 % (11.5-14.5); White Blood Cell Count 32.9 10^3/uL (4.8-10.8)
[2023-12-15] MEDS: NOVOLOG FLEXPEN-MODERATE RESISTANCE 3 UNITS SC ×2 (05:18→12:23)
[2023-12-15] MEDS: MERREM 500 MG IV (05:18)
[2023-12-15] MEDS: NOVOLOG FLEXPEN 5 UNITS SC (05:18)
[2023-12-15] MEDS: STERILE WATER FOR INJECTION 10 ML IV (05:18)
[2023-12-15] MEDS: SYNTHROID 150 MCG TUBE (05:26)
[2023-12-15 05:27] LABS: Glucose - Point of Care 228 mg/dl (70-99)
--- NOTE | 2023-12-15 05:35 | PTCARENOTE ---
received patient from day RN- pt is AAOx3- able to mouth words and nod head appropriately. pt has expressed multiple times throughout shift that he 'just wants to and go to [facility]'. encouraged patient to express his wishes with his .
positive environment maintained- tube feeds running and increased to 50ml/hr- residual 25ml. b/l mitts in place. NG tube intact infusing tube feeding without issues. rectal trumpet leaking x1 time- full bath given, replaced and flush without issues.
condom cath intact- draining yellow urine. care ongoing.
[2023-12-15 05:46] LABS: ALT (SGPT) 56 U/L (0-50); AST (SGOT) 73 U/L (17-59); Albumin 2.2 g/dl (3.5-5.0); Alkaline Phosphatase 133 U/L (38-126); Blood Urea Nitrogen 116 mg/dl (9-20); Calcium 7.5 mg/dl (8.4-10.2); Carbon Dioxide 37 mmol/L (22-30); Chloride 101 mmol/L (98-107); Estimated Creatinine Clearance 37 ml/min; Glucose 223 mg/dl (70-99); Sodium 144 mmol/L (135-145); Total Bilirubin 1.7 mg/dl (0.2-1.3); Total Protein 4.7 g/dl (6.3-8.2); eGFR 38.29
--- NOTE | 2023-12-15 07:33 | PN.DE.MGMTRT ---
Insulin Management
- -
12/13/2023 Diabetes Management Consult
Patient admitted 12/02 with SOB, acute hypoxic respiratory failure. PMH includes CAD, Afib, pacemaker, HTN, HLD. No history of diabetes A1C in October 2023 5.5%.
Patient with hyperglycemia due to steroids and IV fluids. NPO. Receiving Q 6 hour corrective insulin. Glucose range 222 to 299. Will add Lantus 12 units daily @ 11AM and continue corrective insulin. Will follow
12/14/2023 Diabetes Management Follow up
Lantus 12 units was started 11AM with Q 6 hour corrective insulin. Glucose has remained > 200. Tube feeds have been started. Will increase 11AM Lantus to 15 units. Will start Q 6 hour NovoLog 5 units with moderate corrective insulin. Will
follow. If tube feeds are stopped or held please hold the 5 units NovoLog Q 6 hours and continue corrective insulin Q6 hours.
12/15/2023: Diabetes Management F/U:
Pt remains on tube feeds and steroids-Pred 40mg IV Q12 hrs.
Glucose remains >200, FBG 223 this AM and 245 to 263 Q6hrs, requiring 1-3 units of additional corrective insulin
Will increase 11 AM Lantus to 18 units and Q 6 hour NovoLog to 8 units. Cont moderate corrective insulin.
Please HOLD Q6hrs NovoLog if tube feeds are held for procedure or interrupted and continue corrective insulin Q6 hours.
Will follow closely .
Diabetes History
- -
Type of Diabetes: 2 requiring insulin
Pre-Admission Diabetes Regimen
12/15/23
04:31
Creatinine 1.8 H
Insulin Pump Settings
IP Diabetes Regimen
12/14/23 12/14/23 12/14/23
12:04 18:06 23:42
Glucose
POC Glucose 263 H 245 H 192 H
12/15/23 12/15/23
04:31 05:16
Glucose 223 H
POC Glucose 228 H
Patient Education
--- NOTE | 2023-12-15 08:29 | W.PN.PUL3 ---
Today's Communication / Plan
-
Patient and requesting DNR
Requesting hospice evaluation
Comfort measures
Reviewed at length with the patient and , emotional support provided
We will sign off. Please call with questions
Assessment
-
Assessment:
Mr Madhav Morales is a 78/M adm 12-02 from [facility] where he was rehabilitating after sustaining MSTEMI for which he received CABG at on 11-16-23 (also received R sided PPM for AVB), with 4 d h/o productive cough of greenish sputum, chills and
dyspnea. At ER, R sided infiltrate, started on vancomycin/cefepime, then changed to zosyn since 12-03. Increasing O2 requirements led to pulm consultation 12-06
Bilateral pneumonia/pneumonitis R>>L (suspect component of inflammatory pneumonitis)
Bilateral dependent pleural effusions and compressive L base atelectasis
Lethargy
Worsening anemia
Heme positive liquid stools
Leukocytosis
Persistent moderate anemia
Transaminitis - improving
Elevated BNP
Normal PCT 12-03
Dysphagia: mild oral and mild-moderate pharyngeal
Ileus s/p NGT
Conditions RESEARCH EPIDEMIOLOGIST:
CAD s/p CABGx4 and PPM (AVB) early Nov 2023
PAFib on rivaroxaban, L sided PPM in past, on amiodarone
HTN
HLD
Gout
Hypothyroidism
Diastolic dysfunction
Moderate MR
Chronic hyponatremia
Pituitary tumor s/p resection
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
R sided blindness
TIA
Fatty liver
Cholecystectomy
Nonsmoker
Plan/recommendations
Unfortunately, patient remains profoundly deconditioned. Has absolutely no cough on command, weak gag
He is able to say his name today
Poor inspiratory effort on exam.
Chest x-ray 12/11/2023 with mild interstitial changes, overall improved
98% on [address] 12/12/2023 without acute findings
Patient with profound weakness, cannot cough. Discussed with at bedside that given lack of airway clearance ability, profound deconditioning, prognosis remains poor
states patient has not been able to stand or walk for 3+ weeks
Today, patient has made his wishes clear to his
He does not want to proceed with any care. He wants to pursue comfort measures
Family is coming into visit from out of town later today and tomorrow
When discussed continuing current care pending family arrival, patient nods his has no
He is interested in pursuing comfort measures, hospice as indicated
Moving forward
We will consult hospice
Will try ice chips, and advance diet. Patient asking for ice cream
It is reasonable to focus on comfort measures given multisystem organ dysfunction, chronic morbidities
I do not think patient will do well from a respiratory standpoint given his profound deconditioning, absence airway clearance, weak gag
Discussed the above with patient and at bedside
Reviewed with primary service, nursing
Change to DNR and await hospice evaluation
Emotional support provided
Diagnostic tests:
Chest/Abd XR 12-09-2023:
Relatively stable appearance of the chest. Extensive diffuse bilateral interstitial and airspace opacity. Nasogastric tube extends into the stomach. No pneumothorax.
Examination of the abdomen demonstrates opaque contrast material within the colon, without significant change or distal propagation compared to the prior examination. As before, contrast is predominantly within the ascending colon, transverse colon,
and proximal to mid descending colon. This has not extended any further distally. However, no colonic dilatation to suggest obstruction.
Relative paucity of small bowel gas.
No suspicious air-fluid levels.
No free air.
CXR 12-05-23, c/w and 11-21-23. Baseline with no infiltrates. Fillms this adm with new onset R sided infiltrate and mild pulm vasc congestion on L. Last adm with new L sided PPM (already had L sided PPM)
Subjective Data
-
Date of Service:
Date of Service: December 15, 2023
Chief Complaint: Pulmonary Follow Up
Subjective:
Patient remains profoundly weak. Has no cough, minimal gag. Able to vocalize name today. He is more interactive with his , making his wishes clear. Remains with tube feeds. at bedside
Objective Data
Data Reviewed
Vital Signs / I&O / Oxygen:
Vital Signs
Temp Pulse Resp BP Pulse Ox
97.6 F 61 16 112/57 98
12/15/23 03:10 12/15/23 06:00 12/15/23 06:00 12/15/23 06:00 12/15/23 06:00
Intake and Output
12/14/23 12/15/23 12/16/23
06:59 06:59 06:59
Intake Total 1695 / 1695 1470 / 1470
Output Total 1800 / 1800 1650 / 1650
Balance -105 / -105 -180 / -180
SaO2 98
Nasal Cannula flow liters per 2
minute
Physical Exam
General: Respiratory Distress (mild)
HEENT: Normocephalic and Anicteric
Cardiovascular: S1-S2, Irregular Rhythm (Irregularly irregular), Peripheral Edema (trace LE edema b/l) and Calf Tenderness (n)
Respiratory: Wheeze (n), Crackles (posteriorly bibasilar), Rhonchi (neg), Accessory Resp Muscle Use (mild), Stridor (n) and Other (Poor inspiratory effort)
GI: Soft, Non Distended, Non Tender and NG Tube
Neurology: Awake, Alert and No Motor Deficits (Profoundly weak, elevates arms, cannot elevate legs off bed. Lift head off pillow. Cannot cough or vocalize)
Skin: Dry, Cyanosis (n) and Jaundice (n)
Labs/Micro/Reports
Lab Data
12/15/23 04:31
12/15/23 04:31
Microbiology
12/12/23 19:53 Feces/Stool C. difficile GDH Antigen & Toxins - Final
Negative for toxigenic C.difficile
[2023-12-15] MEDS: SOLU-MEDROL PF 40 MG IV (09:57)
[2023-12-15] MEDS: PROTONIX 100 IV (09:57)
--- NOTE | 2023-12-15 12:04 | W.PN.NEPH.PH ---
Today's Communication / Plan
-
FWF
Assessment/Plan
-
Assessment
-diffuse PNA
-hypoxic respiratory failure
-LEATHA
-hypernatremia
-metabolic alkalosis
-anemia
-Afib/flutter
-HFpEF
-HTN
-elevated LFTs
Plan
-follow BMP
-continue FWF 25ml/hr
-follow hgb
-d/w family
-
-
Date of Service: December 15, 2023
CC / HPI / ROS
-
Chief Complaint:
hypernatremia
History of Present Illness:
Na down to 144
remains on O2
BP stable
Hgb stable low
LEATHA/Cr slightly down to 1.8
on TF with FW
Review of Systems:
c/o sob at rest
no pain but uncomfortable
Labs
-
Labs:
WBC 32.9 10^3/uL (4.8-10.8) H 12/15/23 04:31
RBC 2.91 10^6/uL (4.70-6.10) L 12/15/23 04:31
Hgb 8.9 g/dL (13.0-18.0) L 12/15/23 04:31
Hct 28.0 % (39.0-52.0) L 12/15/23 04:31
Plt Count 208 10^3/uL (130-400) 12/15/23 04:31
Sodium 144 mmol/L (135-145) 12/15/23 04:31
Potassium 4.0 mmol/L (3.5-5.1) 12/15/23 04:31
Chloride 101 mmol/L (98-107) 12/15/23 04:31
Carbon Dioxide 37 mmol/L (22-30) H 12/15/23 04:31
BUN 116 mg/dl (9-20) H* 12/15/23 04:31
Creatinine 1.8 mg/dL (0.7-1.3) H 12/15/23 04:31
eGFR 38.29 12/15/23 04:31
Glucose 223 mg/dl (70-99) H 12/15/23 04:31
Calcium 7.5 mg/dl (8.4-10.2) L 12/15/23 04:31
Efd-E-Lxnahocqfrj Pept 6700 pg/ml 12/10/23 03:10
Albumin 2.2 g/dl (3.5-5.0) L 12/15/23 04:31
Physical Exam
-
Vital Signs:
Vital Signs
Temp Pulse Resp BP Pulse Ox
97.7 F 61 16 112/57 98
12/15/23 11:48 12/15/23 06:00 12/15/23 06:00 12/15/23 06:00 12/15/23 06:00
Cardiovascular:: Regular rate and rhythm
Respiratory:: Bilateral: Coarse
Lung Excursion:: Normal
Abdomen:: Nontender and Soft
Bowel Sounds:: Normal
Extremity Edema:: +2: Bilateral:
--- NOTE | 2023-12-15 12:07 | W.PN.ID1 ---
Date of Service
Date of Service: December 15, 2023
Today's Communication
Observe off abx.
Assessment / Plan
# Acute hypoxemic respiratory failure due to PNA and heart failure; decreasing 02 requirement, on 2L
# Aspiration pneumonia.
- blood cx neg
-repeat CXR shows improvement
- Completed 7 days of meropenem on 12/14/23
# Leukocytosis
- stable
- on steroid, dose decreased 12/12
-C. diff negative
- Follow repeat blood cx's
-UA bland. Ucx neg.
#LEATHA
# s/p recent CABG x 4 (11/16/2023)
#Additional Past Medical History:
Hypertension
Hyperlipidemia
Hypothyroidism
Hx cardiac arrest s/p left chest PPM
Right chest PPM implant 11/20/23
CAD s/p CABG x 4 (11/16/23)
HFpEF
Pituitary tumor (benign) status post resection
TIA
Chronic LE edema
cholecystectomy
����������������������������������������������������������
Chief Complaint
-: Leukocytosis and Pneumonia
Vital Signs / Physical Exam
Vital Signs
Vital Signs
Temp Pulse Resp BP Pulse Ox
97.7 F 67 14 116/61 97
12/15/23 11:48 12/15/23 12:00 12/15/23 12:00 12/15/23 12:00 12/15/23 12:00
Physical Exam
Constitutional: Acutely Ill
Objective Data
Lab Data
Lab Results
12/15/23 04:31
12/15/23 04:31
APTT Cancelled 12/12/23 10:45
Estimated Creat Clear 37 ml/min 12/15/23 04:31
Total Bilirubin 1.7 mg/dl (0.2-1.3) H 12/15/23 04:31
AST 73 U/L (17-59) H 12/15/23 04:31
ALT 56 U/L (0-50) H 12/15/23 04:31
Alkaline Phosphatase 133 U/L (38-126) H 12/15/23 04:31
Most recent labs reviewed.
Micro Results:
12/14/23 10:01 Urine Culture - Final
Urine No Significant Growth
12/14/23 14:59 Blood Culture - Pending
Blood/Venous
12/14/23 15:54 Blood Culture - Pending
Blood/Venous
12/12/23 19:53 C. difficile GDH Antigen & Toxins - Final
Feces/Stool Negative for toxigenic C.difficile
12/02/23 15:56 Blood Culture - Final
Blood/Venous No Growth - Final Report
12/02/23 15:56 Blood Culture - Final
Blood/Venous No Growth - Final Report
12/02/23 23:07 Nasal Screen MRSA (PCR) - Final
Nose MRSA not detected - performed by PCR methodology.
12/03/23 10:24 Legionella Urinary Antigen - Final
Urine Negative for Legionella pneumophila Serogroup 1 antigen.
A negative result does not rule out the possiblity of
Legionella infection due to other serogroups or species of
Legionella. Clinical correlation is recommended.
Streptococcus pneumoniae Antigen (M - Final
Negative for Streptococcus pneumoniae antigen.
A negative result does not exclude infection with
Streptococcus pneumoniae. Clinical correlation is
recommended.
12/02/23 14:57 Influenza Types A & B (CLEO) - Final
Nasal Swab Negative for Influenza A & B, NAAT
Negative results must be combined with clinical observations
and patient history.
Nucleic Acid Amplification test (NAAT)performed on the
[employer] platform.
11/18/23 CXR: Severe bilateral pneumonia with progression in the left lung compared to the chest radiograph from 12/05/2023.
12/08/23 ABD US: Surgically absent gallbladder. No bile duct dilatation.
12/06/23 AXR: Moderate distention of the stomach, colon, and rectum with air and contrast material which is most likely secondary to an acute adynamic ileus.
12/06/23 CT chest wo IV contrast: There is groundglass pattern throughout both lungs, right much worse than left with focal areas of airspace disease predominantly on the right. The pattern is most suggestive of diffuse pneumonia. Moderately large
bilateral pleural effusions.
12/05/23 CXR: Stable extensive right lung pneumonia. Stable post operative changes.
12/02/23 CXR: Significant change in the appearance of the lungs, with new right upper and lower lung zone pneumonia and parapneumonic effusion.
12/11/23 CXR: �Interstitial prominence bilaterally, improved compared to prior chest x-ray, suggestive of improved pulmonary edema. Hazy opacity within the right upper and left lower lung zones, which may represent pneumonia or alveolar pulmonary
edema. Haziness of left hemidiaphragm. Small left pleural effusion may be present, consider PA and lateral views when possible.
12/14/23 CXR: Mild CHF with probable underlying interstitial pneumonitis, overall improved.
--- NOTE | 2023-12-15 12:10 | PTCARENOTE ---
Patient and voiced patient would like to be a DNR. does not want full comfort measures yet but states 'that is coming.' She wants patient to have ice cream but does not want tube feeding to be removed yet. Patient's mouth very dry.
Extensive mouth care was performed.
Assessment, care and VS as charted.
[2023-12-15] MEDS: LANTUS 0.179999999999999993 UNITS SC (12:22)
[2023-12-15] MEDS: NOVOLOG FLEXPEN 8 UNITS SC (12:24)
--- NOTE | 2023-12-15 12:27 | W.PN.HOSP.TC ---
Today's Communication/Plan
-
Monitor vital signs and see plan
Continue to decline, and patient now interested in speaking with hospice. Hospice consult
Trial of PO diet
DNR/DNI
Assessment / Plan
Assessment / Plan
Healthcare acquired pneumonia with recent hospitalization and been in a detention home
Acute hypoxic respiratory failure secondary to pneumonia
Managed with broad-spectrum antibiotic,
Was on Zosyn, due to elevated LFTs now switched to cefepime/Flagyl. ID following, now on Meropenem
remains NPO; management per GI. Started on low tube feeds
Cough medication
Tylenol as needed
Monitor vital sign
xray with possible pneumonia and parapneumonic effusion -repeat x-ray with pneumonia. CT chest 12/07 with groundglass pattern throughout both lungs consistent with diffuse pneumonia. Pulmonary following. Now on 2L
COVID, flu, Legionella, strep neg
Monitor leukocytosis; now on methylprednisilone
�VSE 12-04 showed mild O and mild-mod P dysphagia; speech to come again once patient mentation improves
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
suspect some wax and wane is 2/ ongoing aspiration
Patient told overnight RN, daytime RN and me that he just wants to be comfortable and does not want any aggressive measures. This was also discussed with patient's spouse 12/14 by me. Spouse will be speaking to other family members and will make a
decision.
[address] Mendez spoke with and patient again. currently wants feeding tube however wants to speak with hospice. She wants to change CODE STATUS to DNR/DNI.
Adynamic ileus
Suspected acute upper GI bleed, acute blood loss anemia
likely also exacerbated by heparin
s/p PRBC 12/12; GI following; monitor hgb. no plan for EGD at this time
cw PPI gtt
Suspect TME multifactorial with sepsis,GI bleed
monitor head CT pending
appears a bit more awake and responsive today; patient seems lethargic however awake alert and oriented. he understands and does not want any aggressive measures anymore
Acute on Chronic hypernatremia
Improving
stopped the Lasix and started hypotonic saline, chest x-ray today with hopeful to restart lasix
Cardiology following. Holding off on right heart cath for now
Nephrology following
Moderate protein caloric malnutrition
History of the hypopituitarism and hypothyroidism while T4 is little high and T3 is low.
Coronary artery disease s/p recent CABG
Sick sinus syndrome status post pacemaker
A-fib/A flutter, paroxysmal
currently in A. Fib. heparin now on hold
Chronic lower extremity edema, mild while he is on amlodipine
Hypertension.
Acute on chronic HFpEF; monitor
Orthostatic hypotension
Hypokalemia
Resolved
LEATHA
nephrology following
monitor urine output
was on IV lasix, will stop Lasix. probnp elevated. per echo on last admission, stage 2 diastolic dysfunction. suspect Acute on chronic HFpEF
holding PO metoprolol; cw IV lopressor
Amiodarone stopped by cardiology. Continue to monitor
hold amlodipine
Elevated LFTs
Monitor
apply TEDS for orthostatic hypotension
History of the hypopituitarism and hypothyroidism�
Levothyroxine decreased to 150. Patient to get repeat TSH with free T4 in 4 to 6 weeks outpatient
should check TSH/T4 currently in pt unable to take po, consider SQ based on levels
Now restarted on p.o. synthroid
testosterone on hold
PT OT and assess functional status
CODE STATUS full code
SCD's
Spoke in length with spouse at bedside 12/11. Discussed CODE STATUS and she currently wants patient to be full code. She is aware that prognosis appears guarded
12/12 she continues to want patient to be full code
12/14 Patient told overnight RN, daytime RN and me that he just wants to be comfortable and does not want any aggressive measures. This was also discussed with patient's spouse 2/1 by me. Spouse will be speaking to other family members and will make
a decision.
12/[address] Mendez spoke with and patient again. currently wants feeding tube however wants to speak with hospice. She wants to change CODE STATUS to DNR/DNI.
I spent a total of 55 minutes with the patient or on the floor. More than 50% of this time involved counseling and coordination of care.
General: Well Developed, Well Nourished and No Apparent Distress
HEENT: Normocephalic, Atraumatic and Moist Mucous Membranes
Respiratory: Rales (bibasilar rales) and Other (coarse BS); Negative Wheezes
Cardiac: S1/S2 and Irregular Rhythm
GI: Soft, Nontender and Distended
Musculoskeletal: No Clubbing, No Cyanosis and No Edema
Neuro: Awake, Alert and Oriented
Anticipated Discharge: > 48 hours
Subjective/Interval History
-
Date of Service: December 15, 2023
denies pain
Objective Data
-
Labs:
Laboratory Results
12/15/23
04:31
WBC 32.9 H
Hgb 8.9 L
Hct 28.0 L
Plt Count 208
Sodium 144
Potassium 4.0
Chloride 101
Carbon Dioxide 37 H
BUN 116 H*
Creatinine 1.8 H
Glucose 223 H
Calcium 7.5 L
Total Bilirubin 1.7 H
AST 73 H
ALT 56 H
Alkaline Phosphatase 133 H
Vital Signs:
Vital Signs
Temp Pulse Resp BP Pulse Ox
97.7 F 67 14 116/61 98
12/15/23 11:48 12/15/23 12:00 12/15/23 12:00 12/15/23 12:00 12/15/23 12:05
I&O
12/14/23 12/15/2312/16/24
06:59 06:59 06:59
Intake Total 1695 / 1695 1470 / 1470
Output Total 1800 / 1800 1650 / 1650
Balance -105 / -105 -180 / -180
[2023-12-15 12:41] LABS: Glucose - Point of Care 248 mg/dl (70-99)
[2023-12-15] MEDS: STERILE WATER FOR INJECTION IV (12:49)
--- NOTE | 2023-12-15 15:19 | HOSPNOTE ---
Spoke with spouse about hospice and the philosophy. At this time the spouse is unsure when to remove the NG tube and do comfort measures. The household personal assistant was in to speak with spouse and offer support. Report given to floor RN. The spouse just needs
some time to accept.
--- NOTE | 2023-12-15 16:23 | W.PN.UPDATE ---
Update Note
Progress Note Update
Spoke with patient's spouse again. Spouse ready to make patient comfort. Comfort orders entered. Transfer to [facility]
--- NOTE | 2023-12-15 17:04 | CM ---
Patient with Hx legally blind from [facility] with Dx Acute hypoxemic respiratory failure due to PNA and heart failure, Aspiration pneumonia, UGI bleed.
CM Consult: Hospice
Spoke with Honey who agreed to speak with Hospice today. Hospice philosophy and benefits explained. unsure about patient returning to [facility].
[facility]
Met with Honey, patient's , outside of room; [facility], and is considering [facility]. The java solutions architect arrived at the same time as was requesting patient see crusher foreman again.
Plan follow up with Hospice.
--- NOTE | 2023-12-15 17:27 | PTCARENOTE ---
Patient and wanting comfort measures. Patient requesting all tubes be removed. RN removed NGT, CC and rectal trumpet. Pt requested just to have an attends on. Heart monitor, SCDs and compression stockings all removed. Patient wanted to keep his
2L of O2. Extensive mouth care performed again. Ice chips given for comfort. Pt denies any pain or being anxious. remains at bedside.
[2023-12-15] MEDS: DILAUDID 0.5 MG IV (19:36)
[2023-12-16] MEDS: DILAUDID 0.5 MG IV ×5 (03:24→17:36)
[2023-12-16] MEDS: FLUSH (NSS) 2 FLUSH IV (03:25)
--- NOTE | 2023-12-16 05:41 | PTCARENOTE ---
Pt appeared to be comfortable through most of the night. Pt receiving 2 doses of PRN Dilaudid. Pt assessed frequently though out the night. Pt able to say yes to pain and medication. Pt possibly being move to [address] [place] [address] when available room. Assessment
care and vitals as charted.
[2023-12-16 07:35] VITALS: BP 113/74
--- NOTE | 2023-12-16 11:17 | W.PN.NEPH.PH ---
Today's Communication / Plan
-
s/o
Assessment/Plan
-
Assessment
-diffuse PNA
-hypoxic respiratory failure
-LEATHA
-hypernatremia
-metabolic alkalosis
-anemia
-Afib/flutter
-HFpEF
-HTN
-elevated LFTs
Plan
-comfort care
-will sign off
-
-
Date of Service: December 16, 2023
CC / HPI / ROS
-
Chief Complaint:
hypernatremia
History of Present Illness:
family has chosen hospice
remains on O2
BP stable
off TF
Review of Systems:
no CP/SOB today
Labs
-
Labs:
WBC 32.9 10^3/uL (4.8-10.8) H 12/15/23 04:31
RBC 2.91 10^6/uL (4.70-6.10) L 12/15/23 04:31
Hgb 8.9 g/dL (13.0-18.0) L 12/15/23 04:31
Hct 28.0 % (39.0-52.0) L 12/15/23 04:31
Plt Count 208 10^3/uL (130-400) 12/15/23 04:31
Sodium 144 mmol/L (135-145) 12/15/23 04:31
Potassium 4.0 mmol/L (3.5-5.1) 12/15/23 04:31
Chloride 101 mmol/L (98-107) 12/15/23 04:31
Carbon Dioxide 37 mmol/L (22-30) H 12/15/23 04:31
BUN 116 mg/dl (9-20) H* 12/15/23 04:31
Creatinine 1.8 mg/dL (0.7-1.3) H 12/15/23 04:31
eGFR 38.29 12/15/23 04:31
Glucose 223 mg/dl (70-99) H 12/15/23 04:31
Calcium 7.5 mg/dl (8.4-10.2) L 12/15/23 04:31
Gwv-S-Lykoxnpxmee Pept 6700 pg/ml 12/10/23 03:10
Albumin 2.2 g/dl (3.5-5.0) L 12/15/23 04:31
Physical Exam
-
Vital Signs:
Vital Signs
Temp Pulse Resp BP Pulse Ox
96.0 F L 62 12 113/74 96
12/16/23 07:35 12/16/23 07:35 12/16/23 07:35 12/16/23 07:35 12/16/23 08:22
Cardiovascular:: Regular rate and rhythm
Respiratory:: Bilateral: Coarse
Lung Excursion:: Normal
Abdomen:: Nontender and Soft
Bowel Sounds:: Normal
Extremity Edema:: +2: Bilateral:
--- NOTE | 2023-12-16 12:31 | HOSPNOTE ---
Reviewed records with Dr. Ken, patient is hospice appropriate but not GIP elgibile at this time. Attending made aware. Will monitor over the weekend and reassess on Monday. If patient is stable, can discuss transferring back to [facility]. Message
left for spouse to return call to discuss. Return phone call number given.
--- NOTE | 2023-12-16 13:10 | W.PN.HOSP.TC ---
Today's Communication/Plan
-
Monitor vital signs see plan
Comfort measures with possible transition to hospice
Assessment / Plan
Assessment / Plan
Healthcare acquired pneumonia with recent hospitalization and been in a prison home
Acute hypoxic respiratory failure secondary to pneumonia
Managed with broad-spectrum antibiotic,
Was on Zosyn, due to elevated LFTs now switched to cefepime/Flagyl. ID following, now off antibiotics since transition to comfort
remains NPO; management per GI. Started on low tube feeds
Cough medication
Tylenol as needed
Monitor vital sign
xray with possible pneumonia and parapneumonic effusion -repeat x-ray with pneumonia. CT chest 12/07 with groundglass pattern throughout both lungs consistent with diffuse pneumonia. Pulmonary following. Now on 2L
COVID, flu, Legionella, strep neg
�VSE 12-04 showed mild O and mild-mod P dysphagia; speech to come again once patient mentation improves
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
suspect some wax and wane is 2/2 ongoing aspiration
Patient told overnight RN, daytime RN and me that he just wants to be comfortable and does not want any aggressive measures. This was also discussed with patient's spouse 12/14 by me. Spouse will be speaking to other family members and will make a
decision.
[address] Mendez spoke with and patient again. Status was changed to DNR/DNI. Patient is now on comfort care. Possible transition to hospice
Now started on Dilaudid pushes with transition to drip if needed. Ativan
Adynamic ileus
Suspected acute upper GI bleed, acute blood loss anemia
likely also exacerbated by heparin
s/p PRBC 12/12; GI following; monitor hgb. no plan for EGD at this time
Suspect TME multifactorial with sepsis,GI bleed
Acute on Chronic hypernatremia
Moderate protein caloric malnutrition
History of the hypopituitarism and hypothyroidism while T4 is little high and T3 is low.
Coronary artery disease s/p recent CABG
Sick sinus syndrome status post pacemaker
A-fib/A flutter, paroxysmal
currently in A. Fib. heparin now on hold
Chronic lower extremity edema, mild while he is on amlodipine
Hypertension.
Acute on chronic HFpEF
Hypokalemia
LEATHA
was on IV lasix, will stop Lasix. probnp elevated. per echo on last admission, stage 2 diastolic dysfunction. suspect Acute on chronic HFpEF
Amiodarone stopped by cardiology. Continue to monitor
hold amlodipine
Elevated LFTs
apply TEDS for orthostatic hypotension
History of the hypopituitarism and hypothyroidism�
PT OT and assess functional status
CODE STATUS DNR/DNI
Spoke in length with spouse at bedside 12/11. Discussed CODE STATUS and she currently wants patient to be full code. She is aware that prognosis appears guarded
12/12 she continues to want patient to be full code
12/14 Patient told overnight RN, daytime RN and me that he just wants to be comfortable and does not want any aggressive measures. This was also discussed with patient's spouse 12/14 by me. Spouse will be speaking to other family members and will make
a decision.
12/[address] Mendez spoke with and patient again. currently wants feeding tube however wants to speak with hospice. She wants to change CODE STATUS to DNR/DNI.
2/ on comfort care with possible transition to hospice
General: Lethargic, calm
MSK: edema
Neuro: Awake, Alert and Oriented
Anticipated Discharge: 24 - 48 hours
Subjective/Interval History
-
Date of Service: December 16, 2023
comfortable
Objective Data
-
Vital Signs:
Vital Signs
Temp Pulse Resp BP Pulse Ox
96.0 F L 62 12 113/74 96
12/16/23 07:35 12/16/23 07:35 12/16/23 07:35 12/16/23 07:35 12/16/23 08:22
I&O
12/15/23 12/16/23 12/17/23
06:59 06:59 06:59
Intake Total 1470 / 1470 0 / 0
Output Total 1650 / 1650
Balance -180 / -180 0 / 0
--- NOTE | 2023-12-16 16:10 | PTCARENOTE ---
Report given to 2N Nurse, Pt transferred to room 2091 on comfort care. Dilaudid given prior to move.
--- NOTE | 2023-12-16 17:00 | PTCARENOTE ---
Received pt from ICU via bed on Hospice/comfort care measures. Pt having a lot of pain and medicated with Diauid 0.5mg Iv upon arrival to floor. Awaiting orders for Dilaudid drip to start. at bedside. Pt legally blind and unresponsive at
present. Pt also having period of apnea about 15 secs. Pt made comfortable and informed of comfort measures process. Will cont to be available for support to pt and .
[2023-12-16 17:39] VITALS: BP 118/64
[2023-12-16] MEDS: ATIVAN 0.5 MG IV (17:39)
[2023-12-16 17:41] VITALS: BMI 29.9
[2023-12-16] MEDS: DILAUDID 50 IV (18:05)
[2023-12-16 19:50] VITALS: BP 126/68
--- NOTE | 2023-12-17 09:14 | HOSPNOTE ---
Patient was placed on a dilaudid drip last evening. Neetu went to evaluate patient for GIP eligibility. Patient is comfortable on current regimen. is imminent. Neetu is with spouse providing emotional support. Attending made aware and in
agreement to keep patient on comfort with being imminent.
[2023-12-17 09:55] VITALS: BP 87/49
--- NOTE | 2023-12-17 10:22 | W.PN.HOSP.TC ---
Addendum entered and electronically signed by Joel Melendrez MD 12/25/23 08:11:
Suspect bacterial PNA,POA
Original Note:
Today's Communication/Plan
-
Monitor vital signs see plan
updated at bedside
Continue with Dilaudid drip
Assessment / Plan
Assessment / Plan
Healthcare acquired pneumonia with recent hospitalization and been in a [facility]pc home
Acute hypoxic respiratory failure secondary to pneumonia
Managed with broad-spectrum antibiotic,
Was on Zosyn, due to elevated LFTs now switched to cefepime/Flagyl. ID following, now off antibiotics since transition to comfort
remains NPO; management per GI. Started on low tube feeds
Cough medication
Tylenol as needed
Monitor vital sign
xray with possible pneumonia and parapneumonic effusion -repeat x-ray with pneumonia. CT chest 12/07 with groundglass pattern throughout both lungs consistent with diffuse pneumonia. Pulmonary following. Now on 2L
COVID, flu, Legionella, strep neg
�VSE 12-04 showed mild O and mild-mod P dysphagia; speech to come again once patient mentation improves
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
suspect some wax and wane is 2/2 ongoing aspiration
Patient told overnight RN, daytime RN and me that he just wants to be comfortable and does not want any aggressive measures. This was also discussed with patient's spouse 12/14 by me. Spouse will be speaking to other family members and will make a
decision.
2/ I and Dr. Mendez spoke with and patient again. Status was changed to DNR/DNI. Patient is now on comfort care. Possible transition to hospice
Now on Dilaudid drip. Ativan. revenue inspector following
Adynamic ileus
Suspected acute upper GI bleed, acute blood loss anemia
likely also exacerbated by heparin
s/p PRBC 12/12; GI following; monitor hgb. no plan for EGD at this time
Suspect TME multifactorial with sepsis,GI bleed
Acute on Chronic hypernatremia
Moderate protein caloric malnutrition
History of the hypopituitarism and hypothyroidism while T4 is little high and T3 is low.
Coronary artery disease s/p recent CABG
Sick sinus syndrome status post pacemaker
A-fib/A flutter, paroxysmal
currently in A. Fib. heparin now on hold
Chronic lower extremity edema, mild while he is on amlodipine
Hypertension.
Acute on chronic HFpEF
Hypokalemia
LEATHA
was on IV lasix, will stop Lasix. probnp elevated. per echo on last admission, stage 2 diastolic dysfunction. suspect Acute on chronic HFpEF
Amiodarone stopped by cardiology. Continue to monitor
hold amlodipine
Elevated LFTs
apply TEDS for orthostatic hypotension
History of the hypopituitarism and hypothyroidism�
PT OT and assess functional status
CODE STATUS DNR/DNI
Spoke in length with spouse at bedside 12/11. Discussed CODE STATUS and she currently wants patient to be full code. She is aware that prognosis appears guarded
12/12 she continues to want patient to be full code
12/14 Patient told overnight RN, daytime RN and me that he just wants to be comfortable and does not want any aggressive measures. This was also discussed with patient's spouse 12/14 by me. Spouse will be speaking to other family members and will make
a decision.
12/[address] Mendez spoke with and patient again. currently wants feeding tube however wants to speak with hospice. She wants to change CODE STATUS to DNR/DNI.
2/ on comfort care with possible transition to hospice
General: Lethargic, calm
MSK: edema
Neuro: Awake
Anticipated Discharge: Within 24 hours
Subjective/Interval History
-
Date of Service: December 17, 2023
Comfortable
Objective Data
-
Vital Signs:
Vital Signs
Temp Pulse Resp BP Pulse Ox
97.4 F 77 8 87/49 87
12/17/23 07:30 12/17/23 09:55 12/16/23 19:50 12/17/23 09:55 12/17/23 07:30
I&O
12/16/23 12/17/23 12/18/23
06:59 06:59 06:59
Intake Total 0 / 0
Balance 0 / 0
[2023-12-17 19:05] VITALS: BP 51/31
--- NOTE | 2023-12-17 21:01 | W.PN.DEATH ---
Pronouncement of
-
Called to see patient to pronounce.
No spontaneous heart tones or respirations noted.
Patient not responsive to verbal stimuli.
Patient is pronounced .
Time of : 20:43
Date of : 12/17/23
Family Notified: Yes (DAUGHTER PRESENT)
--- NOTE | 2023-12-18 07:40 | W.DCSUMMARY ---
Discharge Summary
Discharge Data
Date of Admission: 12/02/23
Date of Discharge: 12/17/23
-
Pending Results: No
Hospital Course
Discharge diagnosis:
Acute hypoxic respiratory failure
Pneumonia
Adynamic ileus
Toxic metabolic encephalopathy
Acute on chronic hyponatremia
Acute on chronic congestive heart failure
Acute kidney injury
Gastrointestinal bleed
Hospital course:
78-year-old male with past medical history of coronary artery disease status post recent CABG, sick sinus syndrome status post pacemaker, atrial fibrillation, atrial flutter, hypertension, CHF came to the hospital with acute hypoxic respiratory
failure secondary to pneumonia. Patient was treated with IV antibiotics. Patient was seen by pulmonary throughout hospitalization. Over time patient oxygenation got worse and he was transferred to intermediate care unit. There patient was put on
high flow. While patient was hospital [facility] he developed adynamic ileus and required NG tube for decompression. He was seen by gastroenterology as well on this hospitalization. Later on he developed GI bleed requiring multiple blood transfusions.
Due to his pneumonia he also got video swallow study which showed mild oropharyngeal dysphagia. Over time patient mental status continued to deteriorate. Speech therapy evaluated the patient and recommended NPO. Patient was then started on tube
feeds. While patient was in the hospital he also developed congestive heart failure exacerbation for which he was initially treated with IV Lasix. Later on he developed acute kidney injury for which she was seen by nephrology. Over time patient
condition continued to deteriorate and patient and family decided to pursue comfort measures. Patient was then put on Dilaudid and later on 12/17/2023.
Discharge Plan
-
Patient Disposition:
Date/Time
Date/Time: 12/17/23 20:34
Discharge Date and Time
Discharge Date/Time: 12/17/23 22:31
--- NOTE | 2023-12-20 13:22 | PN.CDI ---
CDI
- -
CDI:
Physician Documentation Request
Admit Date: 12/02/23 16:53
Dear Doctor Aneesh,
Patient admitted for pneumonia
12/02 CXR Report: 'Significant change in the appearance of the lungs, with new right upper and lower lung zone pneumonia and parapneumonic effusion.'
12/02 ER Physician documentation: 'Patient states he was told he has 'viral pneumonia'. Unclear how this diagnosis was arrived at.'
12/05 Video swallow study report: 'Thin liquid by teaspoon showed aspiration with weak cough. Thin liquid with chin tuck maneuver as well as nectar teaspoon showed showed penetration.'
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
Based on the above, could you clarify in the Progress Notes further specificity regarding the known, suspected or likely type of pneumonia you are treating?
Aspiration Pneumonia, POA - indicate substance such as food or vomitus, oils or other solids or liquids
Viral Pneumonia, POA - indicate parainfluenza, RSV, adenovirus, influenza (indicate type) etc.
Bacterial pneumonia, POA
Other type
Use of terms such as suspected, likely, concern for, or probable (associated with a specific diagnosis that is being evaluated, monitored, or treated as if it exists) are acceptable and can be coded in the inpatient setting, when documented at the
time of discharge.
Thank you,
Moira Barreto RN, BSN
CDI Specialist
Available via [place] text
Please use your independent medical judgment in providing your response.
== END 2023-12-17 22:31 | disposition expired | DRG 193 ==
LOC: 2 NORTH 16:53
PROVIDERS: Internal Medicine; Internal Medicine Cardiovascular Disease; Nurse Practitioner Adult Health; Radiology Vascular & Interventional Radiology; ADMITTING PHYSICIAN Internal Medicine; ATTENDING PHYSICIAN Internal Medicine; CONSULT PHYSICIAN Internal Medicine Cardiovascular Disease; CONSULT PHYSICIAN Internal Medicine Gastroenterology; CONSULT PHYSICIAN Specialist; EMERGENCY PHYSICIAN Emergency Medicine; FAMILY PHYSICIAN Internal Medicine; OTHER PHYSICIAN Internal Medicine Infectious Disease; OTHER PHYSICIAN Internal Medicine Pulmonary Disease
PROC: 5A09357 Assistance with Respiratory Ventilation, Less than 24 Consecutive Hours, Continuous Positive Airway Pressure (ICD-10-PCS; 2023-12-06)
PROC: 5A0935A Assistance with Respiratory Ventilation, Less than 24 Consecutive Hours, High Flow/Velocity Cannula (ICD-10-PCS; 2023-12-07)
PROC: 0D9670Z Drainage of Stomach with Drainage Device, Via Natural or Artificial Opening (ICD-10-PCS; 2023-12-07)
PROC: 5A0945A Assistance with Respiratory Ventilation, 24-96 Consecutive Hours, High Flow/Velocity Cannula (ICD-10-PCS; 2023-12-09)
PROC: 05HY33Z Insertion of Infusion Device into Upper Vein, Percutaneous Approach (ICD-10-PCS; 2023-12-11)
PROC: 30243N1 Transfusion of Nonautologous Red Blood Cells into Central Vein, Percutaneous Approach (ICD-10-PCS; 2023-12-12)
DX: J15.9 Unspecified bacterial pneumonia (principal); A41.9 Sepsis, unspecified organism; J96.01 Acute respiratory failure with hypoxia; G92.8 Other toxic encephalopathy; I21.4 Non-ST elevation (NSTEMI) myocardial infarction; I50.33 Acute on chronic diastolic (congestive) heart failure; J98.11 Atelectasis; E44.0 Moderate protein-calorie malnutrition; E23.0 Hypopituitarism; E87.1 Hypo-osmolality and hyponatremia; N17.9 Acute kidney failure, unspecified; E87.0 Hyperosmolality and hypernatremia; E87.3 Alkalosis; J90 Pleural effusion, not elsewhere classified; K56.0 Paralytic ileus; K92.2 Gastrointestinal hemorrhage, unspecified; D62 Acute posthemorrhagic anemia; D68.32 Hemorrhagic disorder due to extrinsic circulating anticoagulants; I48.92 Unspecified atrial flutter; J69.0 Pneumonitis due to inhalation of food and vomit; Z51.5 Encounter for palliative care; E78.00 Pure hypercholesterolemia, unspecified; I11.0 Hypertensive heart disease with heart failure; I25.10 Atherosclerotic heart disease of native coronary artery without angina pectoris; Y95 Nosocomial condition; E83.51 Hypocalcemia; E03.9 Hypothyroidism, unspecified; K76.0 Fatty (change of) liver, not elsewhere classified; M10.9 Gout, unspecified; I48.0 Paroxysmal atrial fibrillation; R13.12 Dysphagia, oropharyngeal phase; E87.6 Hypokalemia; I95.1 Orthostatic hypotension; I49.5 Sick sinus syndrome; H54.8 Legal blindness, as defined in USA; I08.1 Rheumatic disorders of both mitral and tricuspid valves; E78.2 Mixed hyperlipidemia; I44.30 Unspecified atrioventricular block; Z87.891 Personal history of nicotine dependence; Z95.0 Presence of cardiac pacemaker; Z79.01 Long term (current) use of anticoagulants; Z11.52 Encounter for screening for COVID-19; Z79.890 Hormone replacement therapy; Z79.82 Long term (current) use of aspirin; Z95.1 Presence of aortocoronary bypass graft; Z80.0 Family history of malignant neoplasm of digestive organs; Z86.74 Personal history of sudden cardiac arrest; Z86.010 Personal history of colon polyps; Z87.19 Personal history of other diseases of the digestive system; Z68.29 Body mass index [BMI] 29.0-29.9, adult; Z90.49 Acquired absence of other specified parts of digestive tract; Z86.73 Personal history of transient ischemic attack (TIA), and cerebral infarction without residual deficits; Z66 Do not resuscitate
CPT/HCPCS: 36573; 70450; 71045; 71046; 71250; 74018; 74022; 74230; 76700; 80048; 80053; 81003; 81015; 82570; 82962; 83735; 83880; 83935; 84145; 84295; 84300; 84439; 84443; 84481; 85014; 85018; 85025; 85027; 85730; 86705; 86706; 86709; 86803; 86850; 86870; 86900; 86901; 86902; 86920; 86922; 87040; 87086; 87324; 87340; 87449; 87502; 87641; 87811; 87899; 92526; 92610; 92611; 93005; 93306; 94640; 94660; 96374; 97163; 97167; 97530; 99285; C1751; P9016